=== PATIENT | male | born 1970 | race Two or more races ===

== ENCOUNTER 2017-09-22 02:03 | Inpatient (IN) | payer OTHER ==
--- NOTE | 2017-09-22 02:14 | PDOC ---
History of Present Illness - General Chief Complaint: Nausea/Vomiting Stated Complaint: NAUSEA/VOMITING Time Seen by Provider: 09/22/17 02:13 History Source: Patient Exam Limitations: No Limitations - History of Present Illness Initial Comments: 09/22/17 03:04 47m with pmh of non-compliant dm2 presents with 24h of vomiting, dizziness. Stopped being compliant after PCP 2 weeks ago. Finger stick usually puts him at 350 every day. Not compliant with diabetic diet either. No altered mental status. 09/22/17 04:17 Past History - Past Medical History Allergies/Adverse Reactions: Allergies Allergy/AdvReac Type Severity Reaction Status Date / Time No Known Allergies Allergy Verified 09/22/17 02:12 Home Medications: Ambulatory Orders Metformin HCl 850 mg PO BID 09/22/17 Anemia: No Asthma: No Cancer: No Cardiac Disorders: No CVA: No COPD: No CHF: No Dementia: No Diabetes: Yes GI Disorders: No Disorders: No HTN: Yes Hypercholesterolemia: Yes Liver Disease: (hep a?) Seizures: No Thyroid Disease: No - Surgical History Abdominal Surgery: No Appendectomy: No Cardiac Surgery: No Cholecystectomy: No Lung Surgery: No Neurologic Surgery: No Orthopedic Surgery: No - Immunization History Immunization Up to Date: Yes - Suicide/Smoking/Psychosocial Hx Smoking History: Current some day smoker Have you smoked in the past 12 months: No Number of Cigarettes Smoked Daily: 1 Cigars Per Day: 0 Information on smoking cessation initiated: Yes 'Breaking Loose' booklet given: 06/26/13 Hx Alcohol Use: No Drug/Substance Use Hx: No Substance Use Type: Alcohol Hx Substance Use Treatment: No Review of Systems - Review of Systems Able to Perform ROS?: Yes Is the patient limited Welsh proficient: No Constitutional: No: Symptoms Reported HEENTM: No: Symptoms Reported Respiratory: No: Symptoms reported Cardiac (ROS): No: Symptoms Reported ABD/GI: Yes: Nausea, Vomiting Musculoskeletal: Yes: Muscle Pain Integumentary: No: Symptoms Reported Endocrine: No: Symptoms Reported Hematologic/Lymphatic: No: Symptoms Reported All Other Systems: Reviewed and Negative *Physical Exam - Vital Signs Last Vital Signs Temp Pulse Resp BP Pulse Ox 97.8 F 110 H 20 125/90 100 09/22/17 02:11 09/22/17 02:11 09/22/17 02:11 09/22/17 02:11 09/22/17 02:11 - Physical Exam General Appearance: Yes: Apparent Distress, Disheveled, Moderate Distress HEENT: positive: EOMI, NAYELI, Normal ENT Inspection Respiratory/Chest: positive: Lungs Clear, Normal Breath Sounds. negative: Chest Tender, Respiratory Distress Cardiovascular: positive: Regular Rhythm, S1, S2, Tachycardia Gastrointestinal/Abdominal: positive: Normal Bowel Sounds, Flat, Soft. negative : Tender Musculoskeletal: positive: Normal Inspection. negative: CVA Tenderness Extremity: positive: Normal Capillary Refill, Normal Inspection, Normal Range of Motion Integumentary: positive: Normal Color, Dry, Warm Neurologic: positive: Fully Oriented, Alert, Normal Mood/Affect, Normal Response ED Treatment Course - LABORATORY CBC & Chemistry Diagram: 09/22/17 02:25 09/22/17 02:25 Medical Decision Making - Medical Decision Making 09/22/17 04:21 Patient in apparent dka, presenting with 350 fingerstick per EMS. PAtient started on NS, Basic labsm VBG, PAtient hypokelemic at 122, corrected to 126. 2+acetone Added KCl IV redrew chemistry, added 7u insulin and admitted patient to ICU. 09/22/17 04:24 *DC/Admit/Observation/Transfer Diagnosis at time of Disposition: DKA (diabetic ketoacidoses) - Discharge Dispostion Decision to Admit order: Yes - Referrals Referrals: Shahid Alexis [Primary Care Provider] - - Patient Instructions - Post Discharge Activity
[2017-09-22] MEDS ORDERED: SODIUM CHLORIDE 1,000 ML IV STA ×3 (02:20→04:01)
--- NOTE | 2017-09-22 02:20 | PDOC ---
Attending Attestation - ED Attending Attestation I have performed the following: I have examined & evaluated the patient, The case was reviewed & discussed with the resident, I agree w/resident's findings & plan - HPI HPI: 09/22/17 04:06 The patient is a 47 year old male brought in by EMS, with a significant past medical history of diabetes, HTN and HLD, who presents to the emergency department for evaluation of nausea and vomiting. As per EMS, the patient has a BG of 350. The patient reports 24 hours of vomiting and dizziness. The patient reports associated symptoms of generalized weakness and dizziness. The patient reports falling after noting his head felt heavy, but denies loss of consciousness and head trauma. He states this near syncopal episode prompted him to activate EMS to be further evaluated. Pt states he has not been compliant with medications secondary to his PCP passing away 2 weeks ago. The patient denies chest pain, shortness of breath, headache, fever, chills, and urinary/bowel symptoms. Allergies: NKDA Social History: Alcohol consumption reported. Current some day smoker. No reported drug use. Surgical History: Patient denies. PCP: Dr. Alexis ([phone]) - Physicial Exam PE: GENERAL: Awake, alert, and fully oriented, in no acute distress HEAD: No signs of trauma EYES: PERRLA, EOMI, sclera anicteric, conjunctiva clear ENT: Auricles normal inspection, hearing grossly normal, nares patent, oropharynx clear without exudates. Moist mucosa NECK: Normal ROM, supple. LUNGS: Breath sounds equal, clear to auscultation bilaterally. No wheezes, and no crackles HEART: Regular rate and rhythm, normal S1 and S2, no murmurs, rubs or gallops ABDOMEN: Soft, nontender, normoactive bowel sounds. No guarding, no rebound. No masses EXTREMITIES: Normal range of motion, no edema. No clubbing or cyanosis. No cords, erythema, or tenderness NEUROLOGICAL: Cranial nerves II through XII grossly intact. SKIN: Warm, Dry, normal turgor, no rashes or lesions noted. <Jim Troncoso - Last Filed: 09/22/17 04:39> - Resident Resident Name: Jefry Johnson - ED Attending Attestation I have performed the following: I have examined & evaluated the patient, The case was reviewed & discussed with the resident - Medical Decision Making 09/22/17 19:42 Pt will be admitted for his electrolyte abnormalities his alcohol abuse and DKA. He has been placed on nasal cannula for low pulsox (secondary to decreased inspiratory effort, as he is somnolent) Pt is stable and alert and oriented and he will be admitted to medicine. <Sophia José - Last Filed: 09/22/17 19:44> Attestations - Attestations Documentation prepared by Jim Troncoso, acting as medical i d sales for Sophia José MD. <Jim Troncoso - Last Filed: 09/22/17 04:39>
[2017-09-22 02:32] LABS: BASO % 0.7 % (0-2.0); EOS % 0.1 % (0-4.5); HEMATOCRIT 41.9 % (35.4-49); HEMOGLOBIN 14.2 GM/dL (11.7-16.9); LYMPH % 30.3 % (8-40); MCH 27.9 pg (25.7-33.7); MCHC 33.9 g/dl (32.0-35.9); MEAN CELL VOLUME 82.2 fl (80-96); MEAN PLT VOLUME 7.8 fl (7.5-11.1); MONO % 10.1 % (3.8-10.2); NEUT % 58.8 % (42.8-82.8); PLATELET COUNT 333 K/MM3 (134-434); RDW 14.3 % (11.9-15.9); WHITE BLOOD COUNT 10.6 K/mm3 (4.0-10.0)
[2017-09-22 02:59] LABS: ALBUMIN 3.9 g/dl (3.4-5.0); ALK PHOS 86 U/L (45-117); ANION GAP 21 (8-16); BLOOD UREA NITROGEN 21 mg/dL (7-18); CHLORIDE 61 mmol/L (98-107); CO2 40 mmol/L (21-32); CREATININE 2.3 mg/dL (0.7-1.3); GLUCOSE,RANDOM 273 mg/dL (74-106); SGOT/AST 46 U/L (15-37); SGPT/ALT 86 U/L (12-78); TOT PROT 8.4 g/dl (6.4-8.2)
[2017-09-22] MEDS ORDERED: POTASSIUM CHLORIDE 20 MEQ PREMIX IVPB 100 ML IVPB ONE (03:03)
[2017-09-22 03:04] LABS: POTASSIUM 2.8 mmol/L (3.5-5.1); SODIUM 122 mmol/L (136-145)
[2017-09-22] MEDS ORDERED: MAGNESIUM SULF 50% (8.12 MEQ/2 ML-1 GM VIAL) IVPB ONE (03:09)
[2017-09-22] MEDS ORDERED: KCL 10 MEQ IVPB 10 MEQ/100 ML INFUS.BAG IVPB ONE (03:09)
[2017-09-22] MEDS ORDERED: POTASSIUM CHLORIDE TABS 20 MEQ TABLET.ER (FP) PO ONE ×4 (03:09→17:00)
[2017-09-22] MEDS ORDERED: MAGNESIUM 1GM/D5W - 1 GM/100 ML IVPB IVPB ONE (03:18)
[2017-09-22 03:20] LABS: ACETONE URINE- POSITIVE MODERATE 2+
[2017-09-22] MEDS: KCL 10 MEQ IVPB 10 MEQ/100 ML INFUS.BAG IVPB SCH ×6 (03:25→09:29)
--- NOTE | 2017-09-22 03:37 | HP ---
CHIEF COMPLAINT: Nausea, Vomiting, Abdominal Pain PCP: Dr. Alexis HISTORY OF PRESENT ILLNESS: This is a 47 y/o man with a past medical history of Diabetes Type 2 (non- complaint), HTN, Alcohol Dependence. Who presents to the ED with nausea and bilious vomiting, abdominal pain x several days. Patient reports not taking his medications due to his vomiting. Patient reports drinking Alcohol- beers over the September 19 Holiday. Patient reports throat irritation and burning to his abdomen. Patient reports being admitted at [facility] several months ago for DKA. Patient denies fever, chills, cough, SOB, CP, palpitations, diarrhea, constipation, dysuria. ER course was notable for: (1) Na 122 (2) K 2.8 (3) AG- 21 (4) Glucose 273 (5) ABG- 7.5/39.1/92/37.8 Recent Travel: None PAST MEDICAL HISTORY: See HPI PAST SURGICAL HISTORY: Denies Social History: Smoking: < 5 cigarettes daily Alcohol: Beer, mixed drinks, socially, last drink 09/19?18 Drugs: Denies lives with spouse, employed- maintenance Family History: Mother- DM Other siblings- alive and healthy Allergies No Known Allergies Allergy (Verified 09/22/17 02:12) HOME MEDICATIONS: Home Medications Medication Instructions Recorded Aspirin [ASA -] 81 mg PO DAILY 06/25/13 metFORMIN HCL [Glucophage -] 850 mg PO BID 06/25/13 Omeprazole [Prilosec (RX)] 40 mg PO DAILY 05/24/14 Enalapril Maleate [Vasotec -] 2.5 mg PO DAILY 06/09/15 Glipizide 5 mg PO DAILY 06/10/15 Insulin Glargine,Hum.rec.anlog 10 unit SQ HS 06/10/15 [Lantus (10mL VIAL) -] Insulin Sliding Scale [Novolog 0 units SQ TIDAC 06/10/15 Vial Sliding Scale -] Pravastatin Sodium [Pravachol (Nf)] 40 mg PO HS 06/10/15 REVIEW OF SYSTEMS CONSTITUTIONAL: malaise, loss of appetite Absent: fever, chills, diaphoresis, generalized weakness, weight change HEENT: throat pain, hiccups Absent: rhinorrhea, nasal congestion, throat pain, difficulty swallowing, mouth swelling, ear pain, eye pain, visual changes CARDIOVASCULAR: Absent: chest pain, syncope, palpitations, irregular heart rate, lightheadedness , peripheral edema RESPIRATORY: Absent: cough, shortness of breath, dyspnea with exertion, orthopnea, wheezing, stridor, hemoptysis GASTROINTESTINAL:abdominal pain, nausea, vomiting Absent: abdominal distension, diarrhea, constipation, melena, hematochezia GENITOURINARY: Absent: dysuria, frequency, urgency, hesitancy, hematuria, flank pain, genital pain MUSCULOSKELETAL: Absent: myalgia, arthralgia, joint swelling, back pain, neck pain SKIN: Absent: rash, itching, pallor HEMATOLOGIC/IMMUNOLOGIC: Absent: easy bleeding, easy bruising, lymphadenopathy, frequent infections ENDOCRINE: Absent: unexplained weight gain, unexplained weight loss, heat intolerance, cold intolerance NEUROLOGIC: headache, Absent: focal weakness or paresthesias, dizziness, unsteady gait, seizure, mental status changes, bladder or bowel incontinence PSYCHIATRIC: Absent: anxiety, depression, suicidal or homicidal ideation, hallucinations. PHYSICAL EXAMINATION Vital Signs - 24 hr 09/22/17 09/22/17 02:11 03:14 Temperature 97.8 F Pulse Rate 110 H Pulse Rate [ 98 H Left Radial] Respiratory 20 18 Rate Blood Pressure 125/90 Blood Pressure 142/90 [Left Arm] O2 Sat by Pulse 100 100 Oximetry (%) GENERAL: Awake, alert, and fully oriented, in no acute distress. HEAD: Normal with no signs of trauma. EYES: Pupils equal, round and reactive to light, extraocular movements intact, sclera anicteric, conjunctiva clear. No lid lag. EARS, NOSE, THROAT: Ears normal, nares patent, oropharynx clear without exudates . Dry mucous membranes. NECK: Normal range of motion, supple without lymphadenopathy, JVD, or masses. LUNGS: Breath sounds equal, clear to auscultation bilaterally. No wheezes, and no crackles. No accessory muscle use. HEART: Regular rate and rhythm, normal S1 and S2 without murmur, rub or gallop. ABDOMEN: Soft, nontender, not distended, normoactive bowel sounds, no guarding, no rebound, no masses. No hepatomegaly or splenomegaly. MUSCULOSKELETAL: Normal range of motion at all joints. No bony deformities or tenderness. No CVA tenderness. UPPER EXTREMITIES: 2+ pulses, warm, well-perfused. No cyanosis. No clubbing. No peripheral edema. LOWER EXTREMITIES: 2+ pulses, warm, well-perfused. No calf tenderness. No peripheral edema. NEUROLOGICAL: Cranial nerves II-XII intact. Normal speech. Gait not observed. PSYCHIATRIC: Cooperative. Good eye contact. Appropriate mood and affect. SKIN: Warm, dry, normal turgor, no rashes or lesions noted, normal capillary refill. Laboratory Results - last 24 hr 09/22/17 09/22/17 09/22/17 02:05 02:25 02:25 WBC 10.6 H RBC 5.10 Hgb 14.2 Hct 41.9 D MCV 82.2 MCH 27.9 MCHC 33.9 RDW 14.3 Plt Count 333 D MPV 7.8 Absolute Neuts (auto) 6.2 Neutrophils % 58.8 Lymphocytes % 30.3 Monocytes % 10.1 Eosinophils % 0.1 Basophils % 0.7 Nucleated RBC % 0 Sodium 122 L* Potassium 2.8 L* D Chloride 61 L D Carbon Dioxide 40 H D Anion Gap 21 H BUN 21 H Creatinine 2.3 H Creat Clearance w eGFR 30.63 Random Glucose 273 H Calcium 9.0 Total Bilirubin 1.0 AST 46 H D ALT 86 H D Alkaline Phosphatase 86 Total Protein 8.4 H Albumin 3.9 Urine Acetone Positive moderate 2+ Alcohol, Quantitative Acetone, Qual Positive moderate 2+ 09/22/17 02:25 WBC RBC Hgb Hct MCV MCH MCHC RDW Plt Count MPV Absolute Neuts (auto) Neutrophils % Lymphocytes % Monocytes % Eosinophils % Basophils % Nucleated RBC % Sodium Potassium Chloride Carbon Dioxide Anion Gap BUN Creatinine Creat Clearance w eGFR Random Glucose Calcium Total Bilirubin AST ALT Alkaline Phosphatase Total Protein Albumin Urine Acetone Alcohol, Quantitative < 5.0 Acetone, Qual ABG Results ABG pH 7.59 (7.35-7.45) H 09/22/17 04:00 ABG pCO2 at Pt Temp 39.1 mmHg (35-45) 09/22/17 04:00 ABG pO2 at Pt Temp 92.8 mmHg (80-100) D 09/22/17 04:00 ABG HCO3 37.8 meq/L (22-26) H 09/22/17 04:00 ABG O2 Sat (Measured) 95.3 % (90-98.9) 09/22/17 04:00 ABG O2 Content 17.7 % vol (15-22) 09/22/17 04:00 ABG Base Excess 14.3 meq/l (-2-2) H 09/22/17 04:00 ASSESSMENT/PLAN: This is a 47y/o man with a PMHx of: Type II DM (non-complaint), HTn, Alcohol Dependence. Admitted to ICU for DKA, Hypokalemia, Hyponatremia for further evaluation of their emergent condition. Plan: FEN: - Insulin Drip till AG closes and Glucose <250, then D51/2NS with KCL - Replete lytes prn - NPO DVT ppx - OOB - SCDs - Heparin SQ Code Status: Full Code Dispo: Requires Inpatient Care Problem List - Problem (1) DKA (diabetic ketoacidoses) Assessment/Plan: - Likely secondary to non-compliance vs Intoxication vs Inflammation vs Infection - Admit to ICU - Cardiac monitoring - NS fluid boluses, Insulin IVP, K- riders, Mg Sulfate IV,given in ED - Will obtain repeat CMP, ABG, LA, UDT - Chest Xray-pending - UA- pending - AG from 21~19 - ABG- 7.59/39.1/92/37.8/95.3-primary respiratory alkalosis acute, with secondary metabolic alkalosis - Lactic Acid- nl - Continue K- riders - Continue IVF - Insulin Drip per protocol - BMP Q4h - FS Q1H, until AG closes, Serum Glucose< 200, then Q2H - Appreciate [employer] Consultant consult - Appreciate Endocrine consult - NPO Code(s): E13.10 - OTH DIABETES MELLITUS WITH KETOACIDOSIS WITHOUT COMA (2) Hypokalemia Assessment/Plan: - Likely secondary to Hypovalemia vs DKA vs Alcohol Intoxication - K- riders given in ED, will continue till repleted - Cardiac monitoring - EKG- reviewed - Strict INOs - UA-pending - BMP Q4H Code(s): E87.6 - HYPOKALEMIA (3) Hyponatremia Assessment/Plan: - Na 122~127 - Likely secondary to DKA - Continue cardiac monitoring - Sodium corrected 129mg/dl - NS boluses given in ED - Will continue IVF - BMP Q4H - Seizure Precautions - Serum Osmolality-pending Code(s): E87.1 - HYPO-OSMOLALITY AND HYPONATREMIA (4) MOISES (acute kidney injury) Assessment/Plan: - Cr 2.3 - NS bolus given in ED - Continue IVF - Monitor renal function - Consider US kidney r/o stenosis Code(s): N17.9 - ACUTE KIDNEY FAILURE, UNSPECIFIED (5) Hypertension Assessment/Plan: - Stable - Monitor BP - Will have Day team verify medication at pts home pharmacy( [facility]) Code(s): I10 - ESSENTIAL (PRIMARY) HYPERTENSION (6) Alcohol dependence Assessment/Plan: - Alcohol Cessation - UDT-pending - CIWA-ar 4 - DT Precautions - Seizure Precautions - Consider Detox consult - Ativan prn Code(s): F10.20 - ALCOHOL DEPENDENCE, UNCOMPLICATED Visit type - Emergency Visit Emergency Visit: Yes ED Registration Date: 09/22/17 Care time: The patient presented to the Emergency Department on the above date and was hospitalized for further evaluation of their emergent condition. - New Patient This patient is new to me today: Yes Date on this admission: 09/22/17 - Critical Care Critical Care patient: Yes Total Critical Care Time (in minutes): 45 Critical Care Statement: The care of this patient involved high complexity decision making to prevent further life threatening deterioration of the patient 's condition and/or to evaluate & treat vital organ system(s) failure or risk of failure. Hospitalist Screening - Colonoscopy Questionnaire Colonoscopy Questionnaire: Colonoscopy Questionnaire - Patient: 50 - 75 years old and never had a screening colonoscopy: No History of colon or rectal polyps, or CA: No History of IBD, Crohn's disease or UC: No History of abdominal radiation therapy as a child: No - Relative: 1 with colon or rectal CA, or polyps at age 60 or younger: No Colon or rectal CA diagnosed at age 45 or younger: No Multiple relatives with colon or rectal CA: No - Outcome: Screening Result: Negative Screen
[2017-09-22] MEDS ORDERED: INSULIN REGULAR HUMAN 100 UNITS/ML *VIAL IVPUSH ONE (03:51)
[2017-09-22] MEDS ORDERED: INSULIN REGULAR HUMAN 100 UNITS/ML *VIAL ONE (03:59)
[2017-09-22 04:02] LABS: VENOUS PC02 41.1 mmHg (38-52); VENOUS PH 7.59 (7.32-7.42)
[2017-09-22] MEDS ORDERED: SODIUM CHLORIDE 500 ML IV STA (04:02)
[2017-09-22 04:03] LABS: VENOUS PO2 40.9 mmHg (28-48)
[2017-09-22] MEDS ORDERED: FAMOTIDINE 20 MG/50 ML IVPB 20 MG/50 ML MG IVPB ONE ×2 (04:06→04:08)
[2017-09-22 04:08] LABS: ARTERIAL BLD GAS O2 SATURATION 95.3 % (90-98.9); ARTERIAL BLOOD GAS BASE EXCESS 14.3 meq/l (-2-2); ARTERIAL BLOOD GAS PCO2 39.1 mmHg (35-45); ARTERIAL BLOOD GAS PO2 92.8 mmHg (80-100); ARTERIAL BLOOD GAS pH 7.59 (7.35-7.45); CARBOXYHEMOGLOBIN 1.4 gm% (0.5-2.0)
[2017-09-22 04:10] LABS: ALLENS TEST POSITIVE
[2017-09-22] MEDS ORDERED: ONDANSETRON 4 MG/2 ML VIAL IVPB ONE (04:13)
[2017-09-22] MEDS ORDERED: ONDANSETRON 4 MG/2 ML VIAL IVPUSH PRN (04:14)
[2017-09-22 04:20] LABS: ACETONE SERUM POSITIVE MODERATE 2+ (NEGATIVE)
[2017-09-22] MEDS ORDERED: MAG HYDROX/AL HYDROX/SIMETH 30 ML UNIT-DOSE CUP ONE (04:39)
[2017-09-22] MEDS ORDERED: MAG HYDROX/AL HYDROX/SIMETH 30 ML UNIT-DOSE CUP PO ONE ×2 (04:41→16:15)
[2017-09-22] MEDS ORDERED: SUCRALFATE 1 GM/10 ML UNIT DOSE CUPS PO ONE (04:41)
[2017-09-22] MEDS ORDERED: SUCRALFATE 1 GM TABLET (FP) ONE (04:42)
[2017-09-22 04:46] LABS: ANION GAP 19 (8-16); BLOOD UREA NITROGEN 21 mg/dL (7-18); CHLORIDE 71 mmol/L (98-107); CO2 37 mmol/L (21-32); CREATININE 2.1 mg/dL (0.7-1.3); GLUCOSE,RANDOM 224 mg/dL (74-106); SODIUM 127 mmol/L (136-145)
[2017-09-22 04:49] LABS: POTASSIUM 2.7 mmol/L (3.5-5.1)
[2017-09-22] MEDS ORDERED: INSULIN REGULAR 100 UNITS in SODIUM CHLORIDE 99 ML IVPB SCH (05:15)
--- NOTE | 2017-09-22 05:16 | CONSULT ---
Consultation: CONSULT SERVICE: ICU Resident HISTORY OF PRESENT ILLNESS: 47yo M with hx of DMII, alcohol abuse (last known drink 09/19/17), and HTN who presents to ER with abdominal pain, nausea, and vomiting. Pt reports this starting around yesterday afternoon and having copious amounts of vomiting with some bile noted at later times. Pt reports this 19 of September holiday having 7-8 Coronas with wrangell and reports he has a known history of alcohol abuse. Pt also endorse some odynophagia that came about after his vomiting episodes. In the ER he was given KDur 40mEq, KCl 10mEq IV, Novolog 7 U, and 2L NS. Pt also notes that he has not been compliant with his medications especially recently. He reports that normally his BGM's are 250-300's, however recently they have been increasing because of not taking his medications. In addition pt does not report drinking anything unusual or has been around any chemicals lately. REVIEW OF SYSTEMS: CONSTITUTIONAL: Present: malaise, loss of appetite Absent: fever, chills, diaphoresis, generalized weakness, weight change HEENT: Present: throat pain, hiccups Absent: rhinorrhea, nasal congestion, throat pain, difficulty swallowing, mouth swelling, ear pain, eye pain, visual changes CARDIOVASCULAR: Absent: chest pain, syncope, palpitations, irregular heart rate, lightheadedness , peripheral edema RESPIRATORY: Absent: cough, shortness of breath, dyspnea with exertion, orthopnea, wheezing, stridor, hemoptysis GASTROINTESTINAL: Present: abdominal pain, nausea, vomiting Absent: abdominal distension, diarrhea, constipation, melena, hematochezia GENITOURINARY: Absent: dysuria, frequency, urgency, hesitancy, hematuria, flank pain, genital pain MUSCULOSKELETAL: Absent: myalgia, arthralgia, joint swelling, back pain, neck pain SKIN: Absent: rash, itching, pallor HEMATOLOGIC/IMMUNOLOGIC: Absent: easy bleeding, easy bruising, lymphadenopathy, frequent infections ENDOCRINE: Absent: unexplained weight gain, unexplained weight loss, heat intolerance, cold intolerance NEUROLOGIC: Present: headache, Absent: focal weakness or paresthesias, dizziness, unsteady gait, seizure, mental status changes, bladder or bowel incontinence PSYCHIATRIC: Absent: anxiety, depression, suicidal or homicidal ideation, hallucinations. PHYSICAL EXAMINATION Vital Signs - 24 hr 09/22/17 09/22/1718 02:11 03:14 04:09 Temperature 97.8 F Pulse Rate 110 H Pulse Rate [ 98 H 104 H Left Radial] Respiratory 20 18 18 Rate Blood Pressure 125/90 Blood Pressure 142/90 108/80 [Left Arm] O2 Sat by Pulse 100 100 100 Oximetry (%) GENERAL: NAD, Awake, alert, and fully oriented HEENT: NC/AT, EOMI, LUKE, some conjunctival injections, sclera anicteric NECK: No JVD LUNGS: CTA bilaterally. No wheezes, and no crackles. No accessory muscle use. HEART: RRR, normal S1 and S2 without murmur ABDOMEN: Soft, nondistended, mild epigastric tenderness, no suprapubic tenderness, hepatomegaly noted 2 finger widths below rib angle MUSCULOSKELETAL: No CVA tenderness. EXTREMITIES: 2+ DP pulses, warm, well-perfused. No peripheral edema. NEUROLOGICAL: vaccine manager II-XII intact. Strength 5/5 in both upper and lower extremities. Sensation symmetrical throughout. Normal speech. Gait not observed PSYCHIATRIC: Cooperative. Good eye contact. Appropriate mood and affect. SKIN: Warm, dry, no rashes or lesions noted. Laboratory Results - last 24 hr 09/22/17 09/22/17 09/22/17 02:05 02:25 02:25 WBC 10.6 H RBC 5.10 Hgb 14.2 Hct 41.9 D MCV 82.2 MCH 27.9 MCHC 33.9 RDW 14.3 Plt Count 333 D MPV 7.8 Absolute Neuts (auto) 6.2 Neutrophils % 58.8 Lymphocytes % 30.3 Monocytes % 10.1 Eosinophils % 0.1 Basophils % 0.7 Nucleated RBC % 0 Anticoagulation Therapy Puncture Site ABG pH ABG pCO2 at Pt Temp ABG pO2 at Pt Temp ABG HCO3 ABG O2 Sat (Measured) ABG O2 Content ABG Base Excess Harvey Test VBG pH POC VBG pCO2 POC VBG pO2 Mixed VBG HCO3 Carboxyhemoglobin Methemoglobin O2 Delivery Device Oxygen Flow Rate Vent Mode Vent Rate Mechanical Rate Pressure Support Vent Sodium 122 L* Potassium 2.8 L* D Chloride 61 L D Carbon Dioxide 40 H D Anion Gap 21 H BUN 21 H Creatinine 2.3 H Creat Clearance w eGFR 30.63 POC Glucometer Random Glucose 273 H Lactic Acid Calcium 9.0 Total Bilirubin 1.0 AST 46 H D ALT 86 H D Alkaline Phosphatase 86 Total Protein 8.4 H Albumin 3.9 Urine Acetone Positive moderate 2+ Alcohol, Quantitative Acetone, Qual Positive moderate 2+ 09/22/17 09/22/17 09/22/17 02:25 03:28 03:41 WBC RBC Hgb Hct MCV MCH MCHC RDW Plt Count MPV Absolute Neuts (auto) Neutrophils % Lymphocytes % Monocytes % Eosinophils % Basophils % Nucleated RBC % Anticoagulation Therapy Puncture Site ABG pH ABG pCO2 at Pt Temp ABG pO2 at Pt Temp ABG HCO3 ABG O2 Sat (Measured) ABG O2 Content ABG Base Excess Harvey Test VBG pH 7.59 H POC VBG pCO2 41.1 POC VBG pO2 40.9 Mixed VBG HCO3 40.1 H* Carboxyhemoglobin Methemoglobin O2 Delivery Device Oxygen Flow Rate Vent Mode Vent Rate Mechanical Rate Pressure Support Vent Sodium 127 L Potassium 2.7 L* Chloride 71 L D Carbon Dioxide 37 H Anion Gap 19 H BUN 21 H Creatinine 2.1 H Creat Clearance w eGFR 34.02 POC Glucometer Random Glucose 224 H Lactic Acid Calcium 8.0 L Total Bilirubin AST ALT Alkaline Phosphatase Total Protein Albumin Urine Acetone Alcohol, Quantitative < 5.0 Acetone, Qual Positive moderate 2+ 09/22/17 09/22/17 09/22/17 03:46 03:50 04:00 WBC RBC Hgb Hct MCV MCH MCHC RDW Plt Count MPV Absolute Neuts (auto) Neutrophils % Lymphocytes % Monocytes % Eosinophils % Basophils % Nucleated RBC % Anticoagulation Therapy No Result Required. Puncture Site Left radial ABG pH 7.59 H ABG pCO2 at Pt Temp 39.1 ABG pO2 at Pt Temp 92.8 D ABG HCO3 37.8 H ABG O2 Sat (Measured) 95.3 ABG O2 Content 17.7 ABG Base Excess 14.3 H Harvey Test Positive VBG pH POC VBG pCO2 POC VBG pO2 Mixed VBG HCO3 Carboxyhemoglobin 1.4 Methemoglobin 1.6 H O2 Delivery Device No Result Required. Oxygen Flow Rate No Vent Mode No Result Required. Vent Rate No Result Required. Mechanical Rate No Result Required. Pressure Support Vent No Result Required. Sodium Potassium Chloride Carbon Dioxide Anion Gap BUN Creatinine Creat Clearance w eGFR POC Glucometer [phone] Random Glucose Lactic Acid 2.0 Calcium Total Bilirubin AST ALT Alkaline Phosphatase Total Protein Albumin Urine Acetone Alcohol, Quantitative Acetone, Qual Active Medications Generic Name Dose Route Start Last Admin Trade Name Freq PRN Reason Stop Dose Admin Chlorhexidine Gluconate 1 applic 09/22/17 22:00 Hibiclens For Decolonization - TP HS [facility] Heparin Sodium (Porcine) 5,000 unit 09/22/17 06:00 Heparin - SQ TID [facility] Insulin Human Regular 100 100 mls @ 7.03 mls/hr 09/22/17 05:15 units/ Sodium Chloride IVPB TITR [facility] Protocol 0.1 UNITS/KG/HR Mupirocin 1 applic 09/22/17 10:00 Bactroban Ointment (For Decolonization) - NS 09/27/17 09:59 BID [facility] Ondansetron HCl 4 mg 09/22/17 04:14 Zofran Injection IVPUSH Q6H PRN NAUSEA AND/OR VOMITING ASSESSMENT/PLAN: Neuro: Neurologically intact Respiratory: Acute hypoxia --desaturating to 86% on RA --Maintain 2LNC --Most likely pt is hypoventilating and trying to compensate for his metabolic alkalosis Renal/Electrolytes: Hyponatremia --Corrected to 124 on initial labs --Max correction of 10 in 24hr period --No mental status changes noted Hypokalemia --Severe derangement most likely from vomiting --Would explain metabolic alkalosis as well due to intracellular shift of H+ cations --KCl 10mEq IVPB x3 bags --Will need to replete to at least 3.3 before insulin therapy as suggested below Endocrine: Elevated anion gap: --Likely diabetic ketosis with ABG being masked by severe vomiting and hypokalemia --Monitor BMP q3h --Monitor BGM --Regardless need to replete KCl to 3.3 before any insulin therapy --Serum Osm 272 (calculated 273) --UA and UTox ordered FEN: Fluids: After K repleted would likely initiate D51/3NS + 20KCl @ 75cc/hr Electrolytes abnormalities: As above Nutrition: NPO for now PPX: DVT - Heparin SQ TID Dispo: ICU monitoring Rafiq Morales, DO - IM PGY-2 Visit type - Emergency Visit Emergency Visit: Yes ED Registration Date: 09/22/17 Care time: The patient presented to the Emergency Department on the above date and was hospitalized for further evaluation of their emergent condition. - New Patient This patient is new to me today: Yes Date on this admission: 09/22/17 - Critical Care Critical Care patient: Yes Total Critical Care Time (in minutes): 40 Critical Care Statement: The care of this patient involved high complexity decision making to prevent further life threatening deterioration of the patient 's condition and/or to evaluate & treat vital organ system(s) failure or risk of failure.
[2017-09-22] MEDS: HEPARIN NA (PORCINE) 5,000 UNITS/ML 1ML VIAL SQ SCH ×3 (06:12→22:56)
[2017-09-22] MEDS ORDERED: chlordiazePOXIDE HCL 25 MG CAPSULE PO PRN (08:19)
[2017-09-22] MEDS ORDERED: THIAMINE HCL 200 MG/2 ML VIAL IVPB ONE (08:21)
--- NOTE | 2017-09-22 08:26 | HOSP ---
Subjective - Review of Symptoms Events since last encounter: Patient is having some tremor, otherwise has no complain. Vital Signs Temperature 98.3 F 09/22/17 06:29 Pulse Rate 91 H 09/22/17 06:29 Respiratory Rate 18 09/22/17 06:29 Blood Pressure 109/88 09/22/17 06:29 O2 Sat by Pulse Oximetry (%) 100 09/22/17 06:28 GENERAL: Awake, alert, and fully oriented, in no acute distress. HEAD: Normal with no signs of trauma. EYES: Pupils equal, round and reactive to light, extraocular movements intact, sclera anicteric, conjunctiva clear. EARS, NOSE, THROAT: Ears normal, oropharynx clear without exudates. Dry mucous membranes. NECK: Normal range of motion, supple without lymphadenopathy, JVD, or masses. LUNGS: Breath sounds equal, clear to auscultation bilaterally. No wheezes, and no crackles. No accessory muscle use. HEART: Regular rate and rhythm, normal S1 and S2 without murmur, rub or gallop. ABDOMEN: Soft, nontender, not distended, normoactive bowel sounds, no guarding, no rebound, no masses. No hepatomegaly or splenomegaly. MUSCULOSKELETAL: Normal range of motion at all joints. No bony deformities or tenderness. No CVA tenderness. EXTREMITIES: 2+ pulses, warm, well-perfused. No cyanosis. No clubbing. No peripheral edema. NEUROLOGICAL: Cranial nerves II-XII intact. Normal speech. Gait not observed. PSYCHIATRIC: Cooperative. Good eye contact. Appropriate mood and affect. SKIN: Warm, dry, normal turgor, no rashes or lesions noted, normal capillary refill. CBCD WBC 10.6 K/mm3 (4.0-10.0) H 09/22/17 02:25 RBC 5.10 M/mm3 (4.00-5.60) 09/22/17 02:25 Hgb 14.2 GM/dL (11.7-16.9) 09/22/17 02:25 Hct 41.9 % (35.4-49) D 09/22/17 02:25 MCV 82.2 fl (80-96) 09/22/17 02:25 MCHC 33.9 g/dl (32.0-35.9) 09/22/17 02:25 RDW 14.3 % (11.9-15.9) 09/22/17 02:25 Plt Count 333 K/MM3 (134-434) D 09/22/17 02:25 MPV 7.8 fl (7.5-11.1) 09/22/17 02:25 CMP Sodium 127 mmol/L (136-145) L 09/22/17 03:28 Potassium 2.7 mmol/L (3.5-5.1) L* 09/22/17 03:28 Chloride 71 mmol/L (98-107) L D 09/22/17 03:28 Carbon Dioxide 37 mmol/L (21-32) H 09/22/17 03:28 Anion Gap 19 (8-16) H 09/22/17 03:28 BUN 21 mg/dL (7-18) H 09/22/17 03:28 Creatinine 2.1 mg/dL (0.7-1.3) H 09/22/17 03:28 Creat Clearance w eGFR 34.02 (>60) 09/22/17 03:28 Random Glucose 224 mg/dL (74-106) H 09/22/17 03:28 Calcium 8.0 mg/dL (8.5-10.1) L 09/22/17 03:28 Total Bilirubin 1.0 mg/dL (0.2-1.0) 09/22/17 02:25 AST 46 U/L (15-37) H D 09/22/17 02:25 ALT 86 U/L (12-78) H D 09/22/17 02:25 Alkaline Phosphatase 86 U/L (45-117) 09/22/17 02:25 Total Protein 8.4 g/dl (6.4-8.2) H 09/22/17 02:25 Albumin 3.9 g/dl (3.4-5.0) 09/22/17 02:25 Current Medications Generic Name Dose Route Start Last Admin Trade Name Freq PRN Reason Stop Dose Admin Chlordiazepoxide HCl 50 mg 09/22/17 12:00 Librium - PO Q6HPO [facility] Chlordiazepoxide HCl 25 mg 09/22/17 08:19 Librium - PO Q4H PRN WITHDRAWAL(CONT SUBST) Chlorhexidine Gluconate 1 applic 09/22/17 22:00 Hibiclens For Decolonization - TP HS [facility] Heparin Sodium (Porcine) 5,000 unit 09/22/17 06:00 09/22/17 06:12 Heparin - SQ 5,000 unit TID [facility] Administration Insulin Human Regular 100 100 mls @ 7.03 mls/hr 09/22/17 05:15 09/22/17 06:04 units/ Sodium Chloride IVPB Not Given TITR [facility] Protocol 0.1 UNITS/KG/HR Potassium Chloride 10 meq in 100 mls @ 100 mls/hr 09/22/17 05:30 09/22/17 08: 17 Potassium Chloride 10 Meq Premix Ivpb - IVPB 09/22/17 08:29 100 mls/hr Q60M [facility] Administration Sodium Chloride 1,000 mls @ 75 mls/hr 09/22/17 08:30 Normal Saline - IV ASDIR [facility] Mupirocin 1 applic 09/22/17 10:00 Bactroban Ointment (For Decolonization) - NS 09/27/17 09:59 BID [facility] Ondansetron HCl 4 mg 09/22/17 04:14 Zofran Injection IVPUSH Q6H PRN NAUSEA AND/OR VOMITING Multivit/Folic Acid/Iron 1 tab 09/22/17 10:00 Vitamins (Sjr) - PO DAILY [facility] Thiamine HCl 200 mg 09/22/17 08:21 Vitamin B1 Injection - IVPB 09/22/17 08:22 ONCE ONE Thiamine HCl 100 mg 09/23/17 10:00 Vitamin B1 - PO DAILY [facility] Home Medications Medication Instructions Recorded Metformin HCl 850 mg PO BID 09/22/17 Assessment/Plan: This patient is a 47y/o man with a PMHx of: Type II DM (non-complaint), HTN, Alcohol Dependence. Admitted to ICU for DKA, Hypokalemia, Hyponatremia for further evaluation of their emergent condition. # DKA on sliding scale # Hypokalemia replete # Hyponatremia on IVF # MOISES :cr.2.7--->2.1 # Hypertension controlled # Alcohol dependence On Librium protocol DVT: Heparin sq Physical Examination Vital Signs: Vital Signs Temperature 98.3 F 09/22/17 06:29 Pulse Rate 91 H 09/22/17 06:29 Respiratory Rate 18 09/22/17 06:29 Blood Pressure 109/88 09/22/17 06:29 O2 Sat by Pulse Oximetry (%) 100 09/22/17 06:28 Labs: CBC, BMP 09/22/17 02:25 09/22/17 03:28
[2017-09-22] MEDS ORDERED: SODIUM CHLORIDE 1,000 ML IV SCH ×2 (08:30→17:00)
[2017-09-22 08:57] LABS: HEMATOCRIT 36.7 % (35.4-49); HEMOGLOBIN 12.7 GM/dL (11.7-16.9); MCH 28.7 pg (25.7-33.7); MCHC 34.6 g/dl (32.0-35.9); MEAN PLT VOLUME 7.2 fl (7.5-11.1); PLATELET COUNT 265 K/MM3 (134-434); RBC 4.42 M/mm3 (4.00-5.60); RDW 14.4 % (11.9-15.9); WHITE BLOOD COUNT 8.3 K/mm3 (4.0-10.0)
[2017-09-22 09:23] LABS: ALBUMIN 3.2 g/dl (3.4-5.0); ANION GAP 16 (8-16); BLOOD UREA NITROGEN 20 mg/dL (7-18); CALCIUM 7.6 mg/dL (8.5-10.1); CHLORIDE 77 mmol/L (98-107); CO2 35 mmol/L (21-32); GLUCOSE,RANDOM 153 mg/dL (74-106); POTASSIUM 3.2 mmol/L (3.5-5.1); SODIUM 128 mmol/L (136-145)
[2017-09-22 09:28] LABS: ALK PHOS 71 U/L (45-117); BILIRUBIN,TOTAL 0.9 mg/dL (0.2-1.0); PHOSPHOROUS 3.4 mg/dL (2.5-4.9); SGOT/AST 38 U/L (15-37); SGPT/ALT 66 U/L (12-78); TOT PROT 6.9 g/dl (6.4-8.2)
[2017-09-22 09:29] LABS: LIPASE 283 U/L (73-393)
[2017-09-22] MEDS: MUPIROCIN 2% TOPICAL OINTMENT FOR DECOLONIZATION NS SCH ×2 (09:33→22:55)
[2017-09-22 09:59] LABS: INR 1.04 (0.82-1.09); PROTHROMBIN TIME (PATIENT) 11.7 SEC (9.7-13.0)
[2017-09-22] MEDS ORDERED: KCL 10 MEQ IVPB 10 MEQ/100 ML INFUS.BAG IVPB SCH (10:00)
--- NOTE | 2017-09-22 10:14 | PN ---
Physical Exam: SUBJECTIVE: Patient seen and examined patient resting in bed NAD, no acute events. afebrile, hemodynamicaly stable. feels better, complains of mild abdominal cramping as well as chronic tingling in b/l feet. denies n/v. diarrhea, anxiety, tremor, seizure. denies cp, spb, cough, h/a. OBJECTIVE: Vital Signs Period Temp Pulse Resp BP Sys/Villavicencio Pulse Ox Last 24 Hr 97.8 F-98.3 F 91-110 18-20 108-142/80-90 100-100 GENERAL: The patient is awake, alert, and fully oriented, in no acute distress. HEAD: Normal with no signs of trauma. EYES: PERRL, extraocular movements intact, sclera anicteric, conjunctiva clear. No ptosis. ENT: moist mucous membranes. NECK: supple. LUNGS: Breath sounds equal, clear to auscultation bilaterally, no wheezes, no crackles, no accessory muscle use. HEART: Regular rate and rhythm, S1, S2 ABDOMEN: Soft, mildly nontender, nondistended, normoactive bowel sounds, no guarding, no rebound, no masses. EXTREMITIES: 2+ pulses, warm, well-perfused, no edema. NEUROLOGICAL: Cranial nerves II through XII grossly intact. Normal speech, gait not observed. PSYCH: Normal mood, normal affect. SKIN: Warm, dry Laboratory Results - last 24 hr 09/22/17 09/22/17 09/22/17 02:05 02:25 02:25 WBC 10.6 H RBC 5.10 Hgb 14.2 Hct 41.9 D MCV 82.2 MCH 27.9 MCHC 33.9 RDW 14.3 Plt Count 333 D MPV 7.8 Absolute Neuts (auto) 6.2 Neutrophils % 58.8 Lymphocytes % 30.3 Monocytes % 10.1 Eosinophils % 0.1 Basophils % 0.7 Nucleated RBC % 0 PT with INR INR Anticoagulation Therapy Puncture Site ABG pH ABG pCO2 at Pt Temp ABG pO2 at Pt Temp ABG HCO3 ABG O2 Sat (Measured) ABG O2 Content ABG Base Excess Harvey Test VBG pH POC VBG pCO2 POC VBG pO2 Mixed VBG HCO3 Carboxyhemoglobin Methemoglobin O2 Delivery Device Oxygen Flow Rate Vent Mode Vent Rate Mechanical Rate Pressure Support Vent Sodium 122 L* Potassium 2.8 L* D Chloride 61 L D Carbon Dioxide 40 H D Anion Gap 21 H BUN 21 H Creatinine 2.3 H Creat Clearance w eGFR 30.63 POC Glucometer Random Glucose 273 H Hemoglobin A1c % Serum Osmolality Lactic Acid Calcium 9.0 Phosphorus Magnesium Total Bilirubin 1.0 AST 46 H D ALT 86 H D Alkaline Phosphatase 86 Total Protein 8.4 H Albumin 3.9 Lipase Urine Acetone Positive moderate 2+ Alcohol, Quantitative Acetone, Qual Positive moderate 2+ 09/22/17 09/22/17 09/22/17 02:25 03:28 03:30 WBC RBC Hgb Hct MCV MCH MCHC RDW Plt Count MPV Absolute Neuts (auto) Neutrophils % Lymphocytes % Monocytes % Eosinophils % Basophils % Nucleated RBC % PT with INR INR Anticoagulation Therapy Puncture Site ABG pH ABG pCO2 at Pt Temp ABG pO2 at Pt Temp ABG HCO3 ABG O2 Sat (Measured) ABG O2 Content ABG Base Excess Harvey Test VBG pH POC VBG pCO2 POC VBG pO2 Mixed VBG HCO3 Carboxyhemoglobin Methemoglobin O2 Delivery Device Oxygen Flow Rate Vent Mode Vent Rate Mechanical Rate Pressure Support Vent Sodium 127 L Potassium 2.7 L* Chloride 71 L D Carbon Dioxide 37 H Anion Gap 19 H BUN 21 H Creatinine 2.1 H Creat Clearance w eGFR 34.02 POC Glucometer Random Glucose 224 H Hemoglobin A1c % Serum Osmolality 272 L Lactic Acid Calcium 8.0 L Phosphorus Magnesium Total Bilirubin AST ALT Alkaline Phosphatase Total Protein Albumin Lipase Urine Acetone Alcohol, Quantitative < 5.0 Acetone, Qual Positive moderate 2+ 09/22/17 09/22/17 09/22/17 03:41 03:46 03:50 WBC RBC Hgb Hct MCV MCH MCHC RDW Plt Count MPV Absolute Neuts (auto) Neutrophils % Lymphocytes % Monocytes % Eosinophils % Basophils % Nucleated RBC % PT with INR INR Anticoagulation Therapy Puncture Site ABG pH ABG pCO2 at Pt Temp ABG pO2 at Pt Temp ABG HCO3 ABG O2 Sat (Measured) ABG O2 Content ABG Base Excess Harvey Test VBG pH 7.59 H POC VBG pCO2 41.1 POC VBG pO2 40.9 Mixed VBG HCO3 40.1 H* Carboxyhemoglobin Methemoglobin O2 Delivery Device Oxygen Flow Rate Vent Mode Vent Rate Mechanical Rate Pressure Support Vent Sodium Potassium Chloride Carbon Dioxide Anion Gap BUN Creatinine Creat Clearance w eGFR POC Glucometer [phone] Random Glucose Hemoglobin A1c % Serum Osmolality Lactic Acid 2.0 Calcium Phosphorus Magnesium Total Bilirubin AST ALT Alkaline Phosphatase Total Protein Albumin Lipase Urine Acetone Alcohol, Quantitative Acetone, Qual 09/22/17 09/22/17 09/22/17 04:00 08:45 08:45 WBC 8.3 RBC 4.42 Hgb 12.7 Hct 36.7 MCV 83.0 MCH 28.7 MCHC 34.6 RDW 14.4 Plt Count 265 D MPV 7.2 L Absolute Neuts (auto) Neutrophils % Lymphocytes % Monocytes % Eosinophils % Basophils % Nucleated RBC % PT with INR INR Anticoagulation Therapy No Result Required. Puncture Site Left radial ABG pH 7.59 H ABG pCO2 at Pt Temp 39.1 ABG pO2 at Pt Temp 92.8 D ABG HCO3 37.8 H ABG O2 Sat (Measured) 95.3 ABG O2 Content 17.7 ABG Base Excess 14.3 H Harvey Test Positive VBG pH POC VBG pCO2 POC VBG pO2 Mixed VBG HCO3 Carboxyhemoglobin 1.4 Methemoglobin 1.6 H O2 Delivery Device No Result Required. Oxygen Flow Rate No Vent Mode No Result Required. Vent Rate No Result Required. Mechanical Rate No Result Required. Pressure Support Vent No Result Required. Sodium 128 L Potassium 3.2 L Chloride 77 L Carbon Dioxide 35 H Anion Gap 16 BUN 20 H Creatinine 2.0 H Creat Clearance w eGFR 35.99 POC Glucometer Random Glucose 153 H D Hemoglobin A1c % Serum Osmolality Lactic Acid Calcium 7.6 L Phosphorus 3.4 D Magnesium 2.0 Total Bilirubin 0.9 AST 38 H ALT 66 D Alkaline Phosphatase 71 D Total Protein 6.9 Albumin 3.2 L Lipase 283 Urine Acetone Alcohol, Quantitative Acetone, Qual 09/22/17 09/22/17 08:45 08:45 WBC RBC Hgb Hct MCV MCH MCHC RDW Plt Count MPV Absolute Neuts (auto) Neutrophils % Lymphocytes % Monocytes % Eosinophils % Basophils % Nucleated RBC % PT with INR 11.70 INR 1.04 Anticoagulation Therapy Puncture Site ABG pH ABG pCO2 at Pt Temp ABG pO2 at Pt Temp ABG HCO3 ABG O2 Sat (Measured) ABG O2 Content ABG Base Excess Harvey Test VBG pH POC VBG pCO2 POC VBG pO2 Mixed VBG HCO3 Carboxyhemoglobin Methemoglobin O2 Delivery Device Oxygen Flow Rate Vent Mode Vent Rate Mechanical Rate Pressure Support Vent Sodium Potassium Chloride Carbon Dioxide Anion Gap BUN Creatinine Creat Clearance w eGFR POC Glucometer Random Glucose Hemoglobin A1c % 10.8 H D Serum Osmolality Lactic Acid Calcium Phosphorus Magnesium Total Bilirubin AST ALT Alkaline Phosphatase Total Protein Albumin Lipase Urine Acetone Alcohol, Quantitative Acetone, Qual Active Medications Generic Name Dose Route Start Last Admin Trade Name Freq PRN Reason Stop Dose Admin Chlordiazepoxide HCl 50 mg 09/22/17 12:00 Librium - PO Q6HPO [facility] Chlordiazepoxide HCl 25 mg 09/22/17 08:19 Librium - PO Q4H PRN WITHDRAWAL(CONT SUBST) Chlorhexidine Gluconate 1 applic 09/22/17 22:00 Hibiclens For Decolonization - TP HS [facility] Heparin Sodium (Porcine) 5,000 unit 09/22/17 06:00 09/22/17 06:12 Heparin - SQ 5,000 unit TID [facility] Administration Sodium Chloride 1,000 mls @ 75 mls/hr 09/22/17 08:30 09/22/17 09:28 Normal Saline - IV 75 mls/hr ASDIR [facility] Administration Potassium Chloride 10 meq in 100 mls @ 100 mls/hr 09/22/17 10:00 Potassium Chloride 10 Meq Premix Ivpb - IVPB 09/22/17 10:59 Q60M [facility] Mupirocin 1 applic 09/22/17 10:00 09/22/17 09:33 Bactroban Ointment (For Decolonization) - NS 09/27/17 09:59 1 applic BID [facility] Administration Ondansetron HCl 4 mg 09/22/17 04:14 Zofran Injection IVPUSH Q6H PRN NAUSEA AND/OR VOMITING Multivit/Folic Acid/Iron 1 tab 09/22/17 10:00 Vitamins (Sjr) - PO DAILY [facility] Thiamine HCl 100 mg 09/23/17 10:00 Vitamin B1 - PO DAILY [facility] ASSESSMENT/PLAN: 47yo M with hx of NIDDMII (metformin), alcohol abuse (1 pint of vodka/day, last drank 7/4 8 beers), and HTN who presents to ER with abdominal pain, nausea, and vomiting. Previous admissions for alcoholic ketoacidosis and hyponatremia. possible history of DTs Neuro: -baseline mental status -initiate EtOH detox protocol (Librium standing and PRN), [place] consult, thiamine, multivitamins -peripheral neuralgia possibly due to B12 deficiency. f/u levels Pulm: -Acute hypoxia -likely de to hypoventilating in setting of underlying metabolic derangement. Now resolved -stable on room air Endocrine: This is not DKA. Patient in Alcoholic ketoacidosis. Insulin bolus was given in ED. Discontinuing insulin drip BGM q4h ISS tidac Renal: *Hyponatremia, hypochloremia, hypokalemia *Metabolic akalosis bicarb 40 on admission improved to 37 *Elevated Anion Gap 19 -secondary to alcoholic ketoacidosis and heavy GI losses (urine, blood ketones 2 +) -repleting K with riders and PO Kcl -repleting Na with NS @ 75 (patient is 131-135 Na at baseline) -Max Na correction of 10 in 24hr period *MOISES -creat 2.1 from baseline 1, gfr 30's. -secondary to fluid loss and alcoholic ketoacidosis -IVF resuscitation -follow creat -renal consult FEN NS @ 75 f/u lytes diabetic diet DVT - Heparin SQ TID Dispo: xfer m/s when labs improve Problem List - Problems (1) Alcoholic ketoacidosis Code(s): E87.2 - ACIDOSIS (2) Hypochloremia Code(s): E87.8 - OTH DISORDERS OF ELECTROLYTE AND FLUID BALANCE, NEC (3) Hypochloremic alkalosis Code(s): E87.3 - ALKALOSIS (4) MOISES (acute kidney injury) Code(s): N17.9 - ACUTE KIDNEY FAILURE, UNSPECIFIED (5) Alcohol abuse Code(s): F10.10 - ALCOHOL ABUSE, UNCOMPLICATED (6) Alcohol dependence Code(s): F10.20 - ALCOHOL DEPENDENCE, UNCOMPLICATED (7) Diabetes Code(s): E11.9 - TYPE 2 DIABETES MELLITUS WITHOUT COMPLICATIONS (8) Hypertension Code(s): I10 - ESSENTIAL (PRIMARY) HYPERTENSION (9) Hypokalemia Code(s): E87.6 - HYPOKALEMIA (10) Hyponatremia Code(s): E87.1 - HYPO-OSMOLALITY AND HYPONATREMIA (11) Nausea & vomiting Code(s): R11.2 - NAUSEA WITH VOMITING, UNSPECIFIED (12) Transaminitis Code(s): R74.0 - NONSPEC ELEV OF LEVELS OF TRANSAMNS & LACTIC ACID DEHYDRGNSE Visit type - Emergency Visit Emergency Visit: Yes ED Registration Date: 09/22/17 Care time: The patient presented to the Emergency Department on the above date and was hospitalized for further evaluation of their emergent condition. - New Patient This patient is new to me today: Yes Date on this admission: 09/22/17 - Critical Care Critical Care patient: Yes Total Critical Care Time (in minutes): 40 Critical Care Statement: The care of this patient involved high complexity decision making to prevent further life threatening deterioration of the patient 's condition and/or to evaluate & treat vital organ system(s) failure or risk of failure. - Discharge Referral Referred to [facility] No
[2017-09-22] MEDS: PRENATAL VITAMINS W/ FOLIC ACID TABLET (FP) PO SCH (10:18)
--- NOTE | 2017-09-22 10:40 | PN ---
Teaching Attending Note Name of Resident: Jessica Haque ATTENDING PHYSICIAN STATEMENT I saw and evaluated the patient. I reviewed the resident's note and discussed the case with the resident. I agree with the resident's findings and plan as documented. SUBJECTIVE: Patient seen and examined in the ICU. Awake and alert. Not tremulous. Labs are improving. Intake & Output 09/19/17 09/20/17 09/21/17 09/22/17 23:59 23:59 23:59 23:59 Intake Total 150 Balance 150 Weight 142 lb 4 oz Last Vital Signs Temp Pulse Resp BP Pulse Ox 98.3 F 91 H 18 109/88 100 09/22/17 06:29 09/22/17 06:29 09/22/17 06:29 09/22/17 06:29 09/22/17 06:28 Active Medications Chlordiazepoxide HCl (Librium -) 50 mg PO Q6HPO [facility] Chlordiazepoxide HCl (Librium -) 25 mg PO Q4H PRN PRN Reason: WITHDRAWAL(CONT SUBST) Chlorhexidine Gluconate (Hibiclens For Decolonization -) 1 applic TP HS [facility] Heparin Sodium (Porcine) (Heparin -) 5,000 unit SQ TID [facility] Last Admin: 09/22/17 06:12 Dose: 5,000 unit Sodium Chloride (Normal Saline -) 1,000 mls @ 75 mls/hr IV ASDIR [facility]AK Last Admin: 09/22/17 09:28 Dose: 75 mls/hr Mupirocin (Bactroban Ointment (For Decolonization) -) 1 applic NS BID [facility] Stop: 09/27/17 09:59 Last Admin: 09/22/17 09:33 Dose: 1 applic Ondansetron HCl (Zofran Injection) 4 mg IVPUSH Q6H PRN PRN Reason: NAUSEA AND/OR VOMITING Multivit/Folic Acid/Iron ( Vitamins (Sjr) -) 1 tab PO DAILY [facility] Last Admin: 09/22/17 10:18 Dose: 1 tab Thiamine HCl (Vitamin B1 -) 100 mg PO DAILY [facility] GENERAL: NAD, Awake, alert, and fully oriented HEENT: NC/AT, EOMI, LUKE, some conjunctival injections, sclera anicteric NECK: No JVD LUNGS: CTA bilaterally. No wheezes, and no crackles. No accessory muscle use. HEART: RRR, normal S1 and S2 without murmur ABDOMEN: Soft, nondistended, mild epigastric tenderness, no suprapubic tenderness, hepatomegaly noted 2 finger widths below rib angle MUSCULOSKELETAL: No CVA tenderness. EXTREMITIES: 2+ DP pulses, warm, well-perfused. No peripheral edema. NEUROLOGICAL: non-focal, not tremulous PSYCHIATRIC: Cooperative. Good eye contact. Appropriate mood and affect. SKIN: Warm, dry, no rashes or lesions noted. Laboratory Results - last 24 hr 09/22/17 09/22/17 09/22/17 02:05 02:25 02:25 WBC 10.6 H RBC 5.10 Hgb 14.2 Hct 41.9 D MCV 82.2 MCH 27.9 MCHC 33.9 RDW 14.3 Plt Count 333 D MPV 7.8 Absolute Neuts (auto) 6.2 Neutrophils % 58.8 Lymphocytes % 30.3 Monocytes % 10.1 Eosinophils % 0.1 Basophils % 0.7 Nucleated RBC % 0 PT with INR INR Anticoagulation Therapy Puncture Site ABG pH ABG pCO2 at Pt Temp ABG pO2 at Pt Temp ABG HCO3 ABG O2 Sat (Measured) ABG O2 Content ABG Base Excess Harvey Test VBG pH POC VBG pCO2 POC VBG pO2 Mixed VBG HCO3 Carboxyhemoglobin Methemoglobin O2 Delivery Device Oxygen Flow Rate Vent Mode Vent Rate Mechanical Rate Pressure Support Vent Sodium 122 L* Potassium 2.8 L* D Chloride 61 L D Carbon Dioxide 40 H D Anion Gap 21 H BUN 21 H Creatinine 2.3 H Creat Clearance w eGFR 30.63 POC Glucometer Random Glucose 273 H Hemoglobin A1c % Serum Osmolality Lactic Acid Calcium 9.0 Phosphorus Magnesium Total Bilirubin 1.0 AST 46 H D ALT 86 H D Alkaline Phosphatase 86 Total Protein 8.4 H Albumin 3.9 Lipase Urine Acetone Positive moderate 2+ Alcohol, Quantitative Acetone, Qual Positive moderate 2+ 09/22/17 09/22/17 09/22/17 02:25 03:28 03:30 WBC RBC Hgb Hct MCV MCH MCHC RDW Plt Count MPV Absolute Neuts (auto) Neutrophils % Lymphocytes % Monocytes % Eosinophils % Basophils % Nucleated RBC % PT with INR INR Anticoagulation Therapy Puncture Site ABG pH ABG pCO2 at Pt Temp ABG pO2 at Pt Temp ABG HCO3 ABG O2 Sat (Measured) ABG O2 Content ABG Base Excess Harvey Test VBG pH POC VBG pCO2 POC VBG pO2 Mixed VBG HCO3 Carboxyhemoglobin Methemoglobin O2 Delivery Device Oxygen Flow Rate Vent Mode Vent Rate Mechanical Rate Pressure Support Vent Sodium 127 L Potassium 2.7 L* Chloride 71 L D Carbon Dioxide 37 H Anion Gap 19 H BUN 21 H Creatinine 2.1 H Creat Clearance w eGFR 34.02 POC Glucometer Random Glucose 224 H Hemoglobin A1c % Serum Osmolality 272 L Lactic Acid Calcium 8.0 L Phosphorus Magnesium Total Bilirubin AST ALT Alkaline Phosphatase Total Protein Albumin Lipase Urine Acetone Alcohol, Quantitative < 5.0 Acetone, Qual Positive moderate 2+ 09/22/17 09/22/17 09/22/17 03:41 03:46 03:50 WBC RBC Hgb Hct MCV MCH MCHC RDW Plt Count MPV Absolute Neuts (auto) Neutrophils % Lymphocytes % Monocytes % Eosinophils % Basophils % Nucleated RBC % PT with INR INR Anticoagulation Therapy Puncture Site ABG pH ABG pCO2 at Pt Temp ABG pO2 at Pt Temp ABG HCO3 ABG O2 Sat (Measured) ABG O2 Content ABG Base Excess Harvey Test VBG pH 7.59 H POC VBG pCO2 41.1 POC VBG pO2 40.9 Mixed VBG HCO3 40.1 H* Carboxyhemoglobin Methemoglobin O2 Delivery Device Oxygen Flow Rate Vent Mode Vent Rate Mechanical Rate Pressure Support Vent Sodium Potassium Chloride Carbon Dioxide Anion Gap BUN Creatinine Creat Clearance w eGFR POC Glucometer [phone] Random Glucose Hemoglobin A1c % Serum Osmolality Lactic Acid 2.0 Calcium Phosphorus Magnesium Total Bilirubin AST ALT Alkaline Phosphatase Total Protein Albumin Lipase Urine Acetone Alcohol, Quantitative Acetone, Qual 09/22/17 09/22/17 09/22/17 04:00 08:45 08:45 WBC 8.3 RBC 4.42 Hgb 12.7 Hct 36.7 MCV 83.0 MCH 28.7 MCHC 34.6 RDW 14.4 Plt Count 265 D MPV 7.2 L Absolute Neuts (auto) Neutrophils % Lymphocytes % Monocytes % Eosinophils % Basophils % Nucleated RBC % PT with INR INR Anticoagulation Therapy No Result Required. Puncture Site Left radial ABG pH 7.59 H ABG pCO2 at Pt Temp 39.1 ABG pO2 at Pt Temp 92.8 D ABG HCO3 37.8 H ABG O2 Sat (Measured) 95.3 ABG O2 Content 17.7 ABG Base Excess 14.3 H Harvey Test Positive VBG pH POC VBG pCO2 POC VBG pO2 Mixed VBG HCO3 Carboxyhemoglobin 1.4 Methemoglobin 1.6 H O2 Delivery Device No Result Required. Oxygen Flow Rate No Vent Mode No Result Required. Vent Rate No Result Required. Mechanical Rate No Result Required. Pressure Support Vent No Result Required. Sodium 128 L Potassium 3.2 L Chloride 77 L Carbon Dioxide 35 H Anion Gap 16 BUN 20 H Creatinine 2.0 H Creat Clearance w eGFR 35.99 POC Glucometer Random Glucose 153 H D Hemoglobin A1c % Serum Osmolality Lactic Acid Calcium 7.6 L Phosphorus 3.4 D Magnesium 2.0 Total Bilirubin 0.9 AST 38 H ALT 66 D Alkaline Phosphatase 71 D Total Protein 6.9 Albumin 3.2 L Lipase 283 Urine Acetone Alcohol, Quantitative Acetone, Qual 09/22/17 09/22/17 08:45 08:45 WBC RBC Hgb Hct MCV MCH MCHC RDW Plt Count MPV Absolute Neuts (auto) Neutrophils % Lymphocytes % Monocytes % Eosinophils % Basophils % Nucleated RBC % PT with INR 11.70 INR 1.04 Anticoagulation Therapy Puncture Site ABG pH ABG pCO2 at Pt Temp ABG pO2 at Pt Temp ABG HCO3 ABG O2 Sat (Measured) ABG O2 Content ABG Base Excess Harvey Test VBG pH POC VBG pCO2 POC VBG pO2 Mixed VBG HCO3 Carboxyhemoglobin Methemoglobin O2 Delivery Device Oxygen Flow Rate Vent Mode Vent Rate Mechanical Rate Pressure Support Vent Sodium Potassium Chloride Carbon Dioxide Anion Gap BUN Creatinine Creat Clearance w eGFR POC Glucometer Random Glucose Hemoglobin A1c % 10.8 H D Serum Osmolality Lactic Acid Calcium Phosphorus Magnesium Total Bilirubin AST ALT Alkaline Phosphatase Total Protein Albumin Lipase Urine Acetone Alcohol, Quantitative Acetone, Qual ASSESSMENT/PLAN: Alcoholic Ketoacidosis Severe electrolyte / metabolic disarray due to chronic vomiting HAGMA ETOH abuse Presumed history of ETOH withdrawal seizure in the past IVF with NS Replete lytes Detox Monitor for withdrawal symptoms PO as tolerated No insulin drip VTE prophylaxis Floor Dr Israel Critical care time spent in reviewing chart, evaluating patient and formulating plan - 36 minutes.
[2017-09-22] MEDS: chlordiazePOXIDE HCL 25 MG CAPSULE PO SCH ×3 (11:57→23:12)
[2017-09-22] MEDS: INSULIN SLIDING SCALE (NOVOLOG) 1 VIAL SQ SCH ×2 (11:59→17:11)
[2017-09-22 12:53] LABS: ANION GAP 14 (8-16); BLOOD UREA NITROGEN 21 mg/dL (7-18); CALCIUM 7.7 mg/dL (8.5-10.1); CHLORIDE 77 mmol/L (98-107); CO2 34 mmol/L (21-32); CREATININE 2.2 mg/dL (0.7-1.3); POTASSIUM 3.5 mmol/L (3.5-5.1)
[2017-09-22 13:12] LABS: GLUCOSE,RANDOM 333 mg/dL (74-106); SODIUM 125 mmol/L (136-145)
--- NOTE | 2017-09-22 14:15 | CON.NEP ---
Consult Consult Specialty:: nephrology Referred by:: eduarda Reason for Consultation:: hyponatremia - History of Present Illness Chief Complaint: nausea and vomiting - Past Medical History Cardio/Vascular: Yes: HTN Gastrointestinal: Yes: GERD Hepatobiliary: Yes: Hepatitis A Psych: Yes: Other (ETOH addiction) Endocrine: Yes: Diabetes Mellitus - Past Surgical History Past Surgical History: Yes: None - Alcohol/Substance Use Hx Alcohol Use: No - Smoking History Smoking history: Current some day smoker Have you smoked in the past 12 months: No Aproximately how many cigarettes per day: 1 Home Medications - Allergies Allergies/Adverse Reactions: Allergies Allergy/AdvReac Type Severity Reaction Status Date / Time No Known Allergies Allergy Verified 09/22/17 02:12 - Home Medications Home Medications: Ambulatory Orders Metformin HCl 850 mg PO BID 09/22/17 Family Disease History - Family Disease History Family Disease History: Diabetes: Mother, Heart Disease: Father Nephrology Consult - Height Height: 5 ft 3.6 in - Weight Weight: 142 lb 4 oz - BMI Body Mass Index (BMI): 24.7 - Lab Results CBC,BMP: CBC, BMP 09/22/17 08:45 09/22/17 12:18 Anion Gap: Anion Gap Anion Gap 14 (8-16) 09/22/17 12:18 - Physical Examination Vital Signs: Vital Signs Temperature 98.3 F 09/22/17 13:12 Pulse Rate 89 09/22/17 13:12 Respiratory Rate 18 09/22/17 12:00 Blood Pressure 115/74 09/22/17 12:00 O2 Sat by Pulse Oximetry (%) 100 09/22/17 07:45 Assessment/Plan hyponatremia dehydration metabolic alkalosis ketosis DM out of control Azotemia is probably MOISES from Prerenal factors nonoliguric arf may yet improve with iv f Plan- continue to hydrate with saline follow chemistries 3 to 4 times a day for now to monitor rate of sodium correction follow urine outputs which seem to be good right now
[2017-09-22 16:11] LABS: URINE APPEARANCE CLEAR; URINE BILIRUBIN NEGATIVE (<2.0 mg/dL); URINE COLOR LTYELLOW; URINE GLUCOSE (UA) 3+ (NEGATIVE); URINE KETONE 1+ (NEGATIVE); URINE LEUK ESTERASE NEGATIVE (NEGATIVE); URINE NITRITE NEGATIVE (NEGATIVE); URINE PROTEIN NEGATIVE (NEGATIVE); URINE UROBILINOGEN NEGATIVE mg/dL (0.2-1.0)
[2017-09-22] MEDS: PANTOPRAZOLE 40 MG TABLET (FP) PO SCH (16:14)
[2017-09-22 16:26] LABS: COCAINE, UR NEGATIVE ng/ml (CUTOFF=300); OPIATES, URI NEGATIVE ng/ml (CUTOFF=300); PHENCYCLIDINE,URINE NEGATIVE ng/ml (CUTOFF=25); URINE AMPHETAMINES NEGATIVE ng/ml (CUTOFF=500); URINE BARBITURATES NEGATIVE ng/ml (CUTOFF=200); URINE BENZODIAZEPINES NEGATIVE ng/ml (CUTOFF=200)
[2017-09-22 16:27] LABS: METHADONE, UR NEGATIVE ng/ml (CUTOFF=300)
[2017-09-22 16:57] LABS: ANION GAP 10 (8-16); BLOOD UREA NITROGEN 26 mg/dL (7-18); CALCIUM 7.3 mg/dL (8.5-10.1); CHLORIDE 82 mmol/L (98-107); CO2 35 mmol/L (21-32); CREATININE 2.4 mg/dL (0.7-1.3); GLUCOSE,RANDOM 270 mg/dL (74-106); POTASSIUM 3.6 mmol/L (3.5-5.1); SODIUM 127 mmol/L (136-145)
[2017-09-22] MEDS ORDERED: METOCLOPRAMIDE HCL 10 MG TABLET (FP) PO ONE (20:45)
[2017-09-22 21:33] LABS: ANION GAP 9 (8-16); BLOOD UREA NITROGEN 26 mg/dL (7-18); CALCIUM 7.3 mg/dL (8.5-10.1); CHLORIDE 91 mmol/L (98-107); CO2 31 mmol/L (21-32); CREATININE 2.7 mg/dL (0.7-1.3); GLUCOSE,RANDOM 292 mg/dL (74-106); SODIUM 131 mmol/L (136-145)
[2017-09-22] MEDS ORDERED: CHLORHEXIDINE GLUCONATE 4% CLEANSER FOR DECOLONIZATION TP SCH (22:00)
[2017-09-22 23:21] VITALS: BMI 24.7
[2017-09-23] MEDS: chlordiazePOXIDE HCL 25 MG CAPSULE PO SCH ×4 (05:04→22:10)
[2017-09-23] MEDS: HEPARIN NA (PORCINE) 5,000 UNITS/ML 1ML VIAL SQ SCH ×3 (05:05→22:10)
[2017-09-23] MEDS: INSULIN SLIDING SCALE (NOVOLOG) 1 VIAL SQ SCH ×3 (06:15→16:03)
[2017-09-23 08:25] LABS: CHLORIDE 94 mmol/L (98-107); POTASSIUM 3.9 mmol/L (3.5-5.1); SODIUM 135 mmol/L (136-145)
[2017-09-23 08:27] LABS: HEMOGLOBIN 12.3 GM/dL (11.7-16.9); MCH 28.8 pg (25.7-33.7); MCHC 34.1 g/dl (32.0-35.9); MEAN CELL VOLUME 84.3 fl (80-96); MEAN PLT VOLUME 8.2 fl (7.5-11.1); PLATELET COUNT 238 K/MM3 (134-434); RBC 4.27 M/mm3 (4.00-5.60); RDW 14.1 % (11.9-15.9); WHITE BLOOD COUNT 5.3 K/mm3 (4.0-10.0)
[2017-09-23 08:31] LABS: ANION GAP 10 (8-16); BLOOD UREA NITROGEN 25 mg/dL (7-18); CO2 31 mmol/L (21-32); CREATININE 2.3 mg/dL (0.7-1.3); GLUCOSE,RANDOM 242 mg/dL (74-106); MAGNESIUM 2.1 mg/dL (1.8-2.4); PHOSPHOROUS 1.9 mg/dL (2.5-4.9)
[2017-09-23] MEDS ORDERED: THIAMINE HCL 100 MG TABLET (FP) PO SCH (10:00)
[2017-09-23] MEDS ORDERED: NAPH,MB-DB/K PH,MBDB POWDER PACKET PO ONE (10:00)
[2017-09-23] MEDS: MUPIROCIN 2% TOPICAL OINTMENT FOR DECOLONIZATION NS SCH (10:02)
[2017-09-23] MEDS: PRENATAL VITAMINS W/ FOLIC ACID TABLET (FP) PO SCH (10:02)
[2017-09-23] MEDS: PANTOPRAZOLE 40 MG TABLET (FP) PO SCH (10:02)
--- NOTE | 2017-09-23 10:11 | EKG ---
Test Reason : Blood Pressure : / mmHG Vent. Rate : 097 BPM Atrial Rate : 097 BPM P-R Int : 148 ms QRS Dur : 082 ms QT Int : 360 ms P-R-T Axes : 056 027 -06 degrees QTc Int : 457 ms NORMAL SINUS RHYTHM INFERIOR INFARCT (CITED ON OR BEFORE 24-MAY-2014) ABNORMAL ECG WHEN COMPARED WITH ECG OF 09-JUN-2015 20:03, NO SIGNIFICANT CHANGE WAS FOUND Confirmed by MYLES DSOUZA, ERIC ([id number]) on 09/23/2017 10:10:49 AM Referred By: Confirmed By:ERIC BUENO MD
[2017-09-23] MEDS: POTASSIUM CHLORIDE 40 MEQ in SODIUM CHLORIDE 1,000 ML IVPB SCH (16:00)
[2017-09-23] MEDS ORDERED: INSULIN (NOVOLOG) ASPART 100 UNITS/ML 10ML VIAL ONE ×2 (16:06→18:55)
--- NOTE | 2017-09-23 17:44 | PN ---
Progress Note (short form) - Note Progress Note: admitted s/p nausea/vomiting with hyponatremia miguel and alcoholic ketosis transferred out of icu Current Medications Chlordiazepoxide HCl (Librium -) 50 mg PO Q6HPO [facility] Last Admin: 09/23/17 13:05 Dose: 50 mg Chlordiazepoxide HCl (Librium -) 25 mg PO Q4H PRN PRN Reason: WITHDRAWAL(CONT SUBST) Heparin Sodium (Porcine) (Heparin -) 5,000 unit SQ TID [facility] Last Admin: 09/23/17 16:03 Dose: 5,000 unit Potassium Chloride 40 meq/ (Sodium Chloride) 1,020 mls @ 75 mls/hr IVPB Q13H [facility] Stop: 09/24/17 03:50 Last Admin: 09/23/17 16:00 Dose: 75 mls/hr Insulin Aspart (Novolog Vial Sliding Scale -) 1 vial SQ TIDAC [facility]; Protocol Last Admin: 09/23/17 16:03 Dose: 8 units Mupirocin (Bactroban Ointment (For Decolonization) -) 1 applic NS BID [facility] Stop: 09/27/17 09:59 Last Admin: 09/23/17 10:02 Dose: Not Given Ondansetron HCl (Zofran Injection) 4 mg IVPUSH Q6H PRN PRN Reason: NAUSEA AND/OR VOMITING Pantoprazole Sodium (Protonix -) 40 mg PO DAILY [facility] Last Admin: 09/23/17 10:02 Dose: 40 mg Multivit/Folic Acid/Iron ( Vitamins (Sjr) -) 1 tab PO DAILY [facility] Last Admin: 09/23/17 10:02 Dose: 1 tab Thiamine HCl (Vitamin B1 -) 100 mg PO DAILY [facility] Last Admin: 09/23/17 10:01 Dose: 100 mg Last Vital Signs Temp Pulse Resp BP Pulse Ox 97.9 F 76 20 140/94 100 09/23/17 17:19 09/23/17 17:19 09/23/17 17:19 09/23/17 17:19 09/23/17 10:00 CBC, BMP 09/23/17 06:46 09/23/17 06:46 improving clinically hyponatremia resolving nedds monitoring for alcohol withdrawal Plan- follow bmp
--- NOTE | 2017-09-23 18:58 | PN ---
<Sandra Styles - Last Filed: 09/23/17 19:52> Physical Exam: SUBJECTIVE: 47yo M with hx of NIDDMII (metformin), alcohol abuse (1 pint of vodka/day, last drank 7/4 8 beers), and HTN who is admitted for detox from alcohol. Patient had no complaints overnight, but would like to leave. Will continue Librium taper. No acute events OBJECTIVE: Vital Signs Period Temp Pulse Resp BP Sys/Villavicencio Pulse Ox Last 24 Hr 97.7 F-98.4 F 69-84 13-22 117-140/77-94 100-100 GENERAL: The patient is awake, alert, and fully oriented, in no acute distress. EYES: PERRL, extraocular movements intact, sclera anicteric, conjunctiva clear. No ptosis. ENT: moist mucous membranes. NECK: supple. LUNGS: Breath sounds equal, clear to auscultation bilaterally, no wheezes, no crackles, no accessory muscle use. HEART: Regular rate and rhythm, S1, S2 ABDOMEN: Soft, mildly nontender, nondistended, normoactive bowel sounds, no guarding, no rebound, no masses. EXTREMITIES: 2+ pulses, warm, well-perfused, no edema. NEUROLOGICAL: Cranial nerves II through XII grossly intact. Normal speech, gait not observed. PSYCH: Normal mood, normal affect. SKIN: Warm, dry Laboratory Results - last 24 hr 09/22/17 09/23/17 09/23/17 20:30 06:08 06:46 WBC 5.3 RBC 4.27 Hgb 12.3 Hct 36.0 MCV 84.3 MCH 28.8 MCHC 34.1 RDW 14.1 Plt Count 238 MPV 8.2 D Sodium 131 L Potassium 4.0 Chloride 91 L D Carbon Dioxide 31 Anion Gap 9 BUN 26 H Creatinine 2.7 H Creat Clearance w eGFR 25.46 POC Glucometer 254 Random Glucose 292 H Calcium 7.3 L Phosphorus Magnesium 09/23/17 09/23/17 09/23/17 06:46 13:08 16:02 WBC RBC Hgb Hct MCV MCH MCHC RDW Plt Count MPV Sodium 135 L Potassium 3.9 Chloride 94 L Carbon Dioxide 31 Anion Gap 10 BUN 25 H Creatinine 2.3 H Creat Clearance w eGFR 30.63 POC Glucometer 273 327 Random Glucose 242 H Calcium 8.0 L Phosphorus 1.9 L D Magnesium 2.1 09/23/17 16:51 WBC RBC Hgb Hct MCV MCH MCHC RDW Plt Count MPV Sodium Potassium Chloride Carbon Dioxide Anion Gap BUN Creatinine Creat Clearance w eGFR POC Glucometer Random Glucose Calcium Phosphorus 1.6 L Magnesium Active Medications Generic Name Dose Route Start Last Admin Trade Name Freq PRN Reason Stop Dose Admin Chlordiazepoxide HCl 50 mg 09/22/17 12:00 09/23/17 13:05 Librium - PO 50 mg Q6HPO [facility] Administration Chlordiazepoxide HCl 25 mg 09/22/17 08:19 Librium - PO Q4H PRN WITHDRAWAL(CONT SUBST) Heparin Sodium (Porcine) 5,000 unit 09/22/17 06:00 09/23/17 16:03 Heparin - SQ 5,000 unit TID [facility] Administration Potassium Chloride 40 meq/ 1,020 mls @ 75 mls/hr 09/23/17 14:15 09/23/17 16: 00 Sodium Chloride IVPB 09/24/17 03:50 75 mls/hr Q13H [facility] Administration Insulin Aspart 1 vial 09/22/17 11:00 09/23/17 16:03 Novolog Vial Sliding Scale - SQ 8 units TIDAC [facility]AK Administration Protocol Mupirocin 1 applic 09/22/17 10:00 09/23/17 10:02 Bactroban Ointment (For Decolonization) - NS 09/27/17 09:59 Not Given BID [facility] Ondansetron HCl 4 mg 09/22/17 04:14 Zofran Injection IVPUSH Q6H PRN NAUSEA AND/OR VOMITING Pantoprazole Sodium 40 mg 09/22/17 16:15 09/23/17 10:02 Protonix - PO 40 mg DAILY [facility] Administration Multivit/Folic Acid/Iron 1 tab 09/22/17 10:00 09/23/17 10:02 Vitamins (Sjr) - PO 1 tab DAILY [facility] Administration Thiamine HCl 100 mg 09/23/17 10:00 09/23/17 10:01 Vitamin B1 - PO 100 mg DAILY [facility] Administration ASSESSMENT/PLAN: 47yo M with hx of NIDDMII (metformin), alcohol abuse (1 pint of vodka/day, last drank 7/4 8 beers), and HTN who is admitted for detox from alcohol. #Detox: -continue Librium taper - continue as per Detox consult - monitor for signs of DT's -Zofran as needed for nausea #MOISES -BUN: 25 Cr: 2.3, f/u labs -continue fluids #DM -continue SS - diabetic diet #DVT ppx: - continue heparin Dispo: pt refusing treatment at [facility] Visit type - Emergency Visit Emergency Visit: No - New Patient This patient is new to me today: Yes Date on this admission: 09/23/17 - Critical Care Critical Care patient: No <Sheri Weldon - Last Filed: 09/24/17 19:08> Physical Exam: Continue current management.
--- NOTE | 2017-09-23 19:40 | CONSULT ---
Consult Detox [facility] Reason for Current Admission/Consult: Detox consulted for pts h/o alcohol use - History History of Present Illness: Pt states he has been using alcohol for several years. Mostly a binge drinker on the weekends. Does not drink during the week. Pt states with this episode of binge drinking started on 09/15 when he went with family to [place]. Pt states he drank unknown amounts- but at least several beers and "shots" of drinks until September 19. Pt states he did not eat and drink during this time- only alcohol use. Also did not take his medications. Pt started feeling dizzy and had nausea and vomiting on September 6ht and so came to ER. Pt is feeling fine now. REc'd IV fluids and is on librium detox protocol - History Source History Provided By: Patient Limitations to Obtaining History: No Limitations - Alcohol/Substance Use Hx Alcohol Use: Yes Hx Substance Use: No Hx Substance Use Treatment: No - Current Drug/Alcohol Use Alcohol Route: Oral Frequency: 3-6 times per week Amount used: several beers and liquor Date of Last Use: 09/19/17 - Past Medical History Cardio/Vascular: Yes: HTN Gastrointestinal: Yes: GERD Hepatobiliary: Yes: Hepatitis A Psych: Yes: Other (ETOH addiction) Endocrine: Yes: Diabetes Mellitus - Past Surgical History Past Surgical History: Yes: None - Significant Medical Findings: pt is without Sx now PE- lungs clear abd soft heart RRR neuro- a and oriented CIWA Score - CIWA Score Nausea/Vomitin-No Nausea/No Vomiting Muscle Tremors: None Anxiety: 0-No Anxiety, at Ease Agitation: 0-Normal Activity Paroxysmal Sweats: No Perspiration Orientation: 0-Oriented Tacttile Disturbances: 0-None Auditory Disturbances: 0-None Visual Disturbances: 0-None Headache: 0-None Present CIWA-Ar Total Score: 0 Assessment Plan - Diagnosis (1) Alcohol abuse Status: Acute - Plan Plan: pt does not want to come to detox at [facility]. Pt is more of a binge drinker not a daily drinker. d/w pt lifestyle changes- including change in diet, increase exercise, meditation, yoga, AA to help him to stay away from alcohol - Medication Detox Regimen/Protocol: Librium (pt was on librium- will taper librium)
[2017-09-23] MEDS ORDERED: ONDANSETRON 4 MG/2 ML VIAL IVPUSH PRN (19:50)
[2017-09-23] MEDS ORDERED: chlordiazePOXIDE HCL 25 MG CAPSULE PO PRN (19:50)
[2017-09-23] MEDS ORDERED: MUPIROCIN 2% TOPICAL OINTMENT FOR DECOLONIZATION NS SCH (22:00)
[2017-09-24] MEDS: chlordiazePOXIDE HCL 25 MG CAPSULE PO SCH ×2 (06:16→11:24)
[2017-09-24] MEDS: POTASSIUM CHLORIDE 40 MEQ in SODIUM CHLORIDE 1,000 ML IVPB SCH (06:16)
[2017-09-24] MEDS: HEPARIN NA (PORCINE) 5,000 UNITS/ML 1ML VIAL SQ SCH ×2 (06:16→14:22)
[2017-09-24] MEDS ORDERED: INSULIN (NOVOLOG) ASPART 100 UNITS/ML 10ML VIAL ONE (06:22)
[2017-09-24] MEDS: INSULIN SLIDING SCALE (NOVOLOG) 1 VIAL SQ SCH ×2 (06:23→12:05)
--- NOTE | 2017-09-24 07:13 | PN ---
<Sandra Styles - Last Filed: 09/24/17 09:27> Physical Exam: SUBJECTIVE: 47yo M with hx of NIDDMII (metformin), alcohol abuse (1 pint of vodka/day, last drank 7/4 8 beers), and HTN who is admitted for detox from alcohol. Patient had no complaints overnight, but would like to leave. Will continue Librium taper. No acute events overnight. OBJECTIVE: Vital Signs Period Temp Pulse Resp BP Sys/Villavicencio Pulse Ox Last 24 Hr 97.6 F-98.1 F 64-82 18-20 104-143/77-94 98-100 GENERAL: The patient is awake, alert, and fully oriented, in no acute distress. EYES: PERRL, extraocular movements intact, sclera anicteric, conjunctiva clear. No ptosis. ENT: moist mucous membranes. NECK: supple. LUNGS: Breath sounds equal, clear to auscultation bilaterally, no wheezes, no crackles, no accessory muscle use. HEART: Regular rate and rhythm, S1, S2 ABDOMEN: Soft, mildly nontender, nondistended, normoactive bowel sounds, no guarding, no rebound, no masses. EXTREMITIES: 2+ pulses, warm, well-perfused, no edema. NEUROLOGICAL: Cranial nerves II through XII grossly intact. Normal speech, gait not observed. PSYCH: Normal mood, normal affect. SKIN: Warm, dry Laboratory Results - last 24 hr 09/23/17 09/23/17 09/23/17 06:46 06:46 13:08 WBC 5.3 RBC 4.27 Hgb 12.3 Hct 36.0 MCV 84.3 MCH 28.8 MCHC 34.1 RDW 14.1 Plt Count 238 MPV 8.2 D Sodium 135 L Potassium 3.9 Chloride 94 L Carbon Dioxide 31 Anion Gap 10 BUN 25 H Creatinine 2.3 H Creat Clearance w eGFR 30.63 POC Glucometer 273 Random Glucose 242 H Calcium 8.0 L Phosphorus 1.9 L D Magnesium 2.1 09/23/17 09/23/17 09/24/17 16:02 16:51 06:20 WBC RBC Hgb Hct MCV MCH MCHC RDW Plt Count MPV Sodium Potassium Chloride Carbon Dioxide Anion Gap BUN Creatinine Creat Clearance w eGFR POC Glucometer 327 278 Random Glucose Calcium Phosphorus 1.6 L Magnesium Active Medications Generic Name Dose Route Start Last Admin Trade Name Freq PRN Reason Stop Dose Admin Chlordiazepoxide HCl 25 mg 09/23/17 23:00 09/24/17 06:16 Librium - PO 09/24/17 17:01 25 mg [id number] BURAK Administration Chlordiazepoxide HCl 15 mg 09/24/17 23:00 Librium - PO 09/25/17 17:01 [id number] BURAK Chlordiazepoxide HCl 25 mg 09/23/17 19:50 Librium - PO Q4H PRN WITHDRAWAL(CONT SUBST) Heparin Sodium (Porcine) 5,000 unit 09/23/17 22:00 09/24/17 06:16 Heparin - SQ 5,000 unit TID [facility]AK Administration Insulin Aspart 1 vial 09/24/17 07:00 09/24/17 06:23 Novolog Vial Sliding Scale - SQ 6 unit TIDAC BURAK Administration Protocol Ondansetron HCl 4 mg 09/23/17 19:50 Zofran Injection IVPUSH Q6H PRN NAUSEA AND/OR VOMITING Pantoprazole Sodium 40 mg 09/24/17 10:00 Protonix - PO DAILY [facility] Multivit/Folic Acid/Iron 1 tab 09/24/17 10:00 Vitamins (Sjr) - PO DAILY [facility] Thiamine HCl 100 mg 09/24/17 10:00 Vitamin B1 - PO DAILY [facility] ASSESSMENT/PLAN: 47yo M with hx of NIDDMII (metformin), alcohol abuse (1 pint of vodka/day, last drank 7/4 8 beers), and HTN who is admitted for detox from alcohol. #Detox: -continue Librium taper (day 2/5) - continue as per Detox consult - monitor for signs of DT's -Zofran as needed for nausea #MOISES -BUN: 24 Cr: 2.1, f/u labs -continue fluids #DM -continue SS - diabetic diet #DVT ppx: - continue heparin #FEN - phosp: 1.6-repleted - / NS @ 75 ( 1 bag) Dispo: pt refusing treatment at [facility] <Sheri Weldon - Last Filed: 09/24/17 19:10> Physical Exam: Continue current therapy. Visit type - Emergency Visit Emergency Visit: Yes ED Registration Date: 09/22/17 Care time: The patient presented to the Emergency Department on the above date and was hospitalized for further evaluation of their emergent condition. - New Patient This patient is new to me today: No - Critical Care Critical Care patient: No - Discharge Referral Referred to [facility] No
[2017-09-24 09:09] LABS: BLOOD UREA NITROGEN 24 mg/dL (7-18); CHLORIDE 105 mmol/L (98-107); GLUCOSE,RANDOM 124 mg/dL (74-106); POTASSIUM 4.3 mmol/L (3.5-5.1); SODIUM 139 mmol/L (136-145)
[2017-09-24 09:14] LABS: ANION GAP 10 (8-16); CALCIUM 8.8 mg/dL (8.5-10.1); CO2 24 mmol/L (21-32); CREATININE 2.1 mg/dL (0.7-1.3)
[2017-09-24] MEDS ORDERED: SODIUM CHLORIDE 0.45% 1,000 ML IV SCH (09:30)
[2017-09-24] MEDS ORDERED: NAPH,MB-DB/K PH,MBDB POWDER PACKET PO ONE (10:00)
[2017-09-24] MEDS ORDERED: PANTOPRAZOLE 40 MG TABLET (FP) PO SCH (10:00)
[2017-09-24] MEDS ORDERED: THIAMINE HCL 100 MG TABLET (FP) PO SCH (10:00)
[2017-09-24] MEDS ORDERED: PRENATAL VITAMINS W/ FOLIC ACID TABLET (FP) PO SCH (10:00)
[2017-09-24] MEDS ORDERED: chlordiazePOXIDE HCL 25 MG CAPSULE PO PRN (11:55)
[2017-09-24 15:12] VITALS: BP 144/86; PULSE 73; TEMP 97.7
[2017-09-24] MEDS ORDERED: chlordiazePOXIDE 5 MG CAPSULE PO SCH ×2 (15:24→23:00)
[2017-09-24] MEDS ORDERED: NAPH,MB-DB/K PH,MBDB POWDER PACKET PO SCH (15:30)
--- NOTE | 2017-09-24 16:45 | PN ---
Progress Note (short form) - Note Progress Note: Renal follow up for MOISES Pt seen and examined at the bedside awake and alert making urine denies any dysuria or obstructive symptoms tolerating oral diet Vital Signs Temperature 97.7 F 09/24/17 15:10 Pulse Rate 73 09/24/17 15:10 Respiratory Rate 20 09/24/17 15:10 Blood Pressure 144/86 09/24/17 15:10 O2 Sat by Pulse Oximetry (%) 98 09/24/17 10:00 Intake & Output 09/21/17 09/22/17 09/23/17 09/24/17 23:59 23:59 23:59 23:59 Intake Total 1840 1520 1500 Output Total 2300 Balance -460 1520 1500 Weight 64.524 kg NAD awake and alert RRR no M/R CTA No LE edema CBC, BMP 09/23/17 06:46 09/24/17 07:30 47 year old gentleman with PMhx of DM not on insulin, ETOH abuse and hypertension admitted for Detox and found to have MOISES. #MOISES #ETOH intoxication #Hypertension Renal function improved but not at baseline Pt reports having been told that he has CKD will check US of the kidney and bladder as well as urine studies oral intake as tolerated if discharged will need to follow up with renal Thank you Juarez Anderson DO 47yo M with hx of NIDDMII (metformin), alcohol abuse (1 pint of vodka/day, last drank 7/4 8 beers), and HTN who is admitted for detox from alcohol. Patient had no complaints overnight, but would like to leave. Will continue Librium taper. No acute events overnight.
--- NOTE | 2017-09-24 19:13 | PN ---
Teaching Attending Note Name of Resident: Sandra Styles ATTENDING PHYSICIAN STATEMENT I saw and evaluated the patient. I reviewed the resident's note and discussed the case with the resident. I agree with the resident's findings and plan as documented. SUBJECTIVE: Patient is comfortable, would like to go home. OBJECTIVE: Vital Signs Temperature 97.7 F 09/24/17 15:10 Pulse Rate 73 09/24/17 15:10 Respiratory Rate 20 09/24/17 15:10 Blood Pressure 144/86 09/24/17 15:10 O2 Sat by Pulse Oximetry (%) 98 09/24/17 10:00 CBCD WBC 5.3 K/mm3 (4.0-10.0) 09/23/17 06:46 RBC 4.27 M/mm3 (4.00-5.60) 09/23/17 06:46 Hgb 12.3 GM/dL (11.7-16.9) 09/23/17 06:46 Hct 36.0 % (35.4-49) 09/23/17 06:46 MCV 84.3 fl (80-96) 09/23/17 06:46 MCHC 34.1 g/dl (32.0-35.9) 09/23/17 06:46 RDW 14.1 % (11.9-15.9) 09/23/17 06:46 Plt Count 238 K/MM3 (134-434) 09/23/17 06:46 MPV 8.2 fl (7.5-11.1) D 09/23/17 06:46 CMP Sodium 139 mmol/L (136-145) 09/24/17 07:30 Potassium 4.3 mmol/L (3.5-5.1) 09/24/17 07:30 Chloride 105 mmol/L (98-107) D 09/24/17 07:30 Carbon Dioxide 24 mmol/L (21-32) D 09/24/17 07:30 Anion Gap 10 (8-16) 09/24/17 07:30 BUN 24 mg/dL (7-18) H 09/24/17 07:30 Creatinine 2.1 mg/dL (0.7-1.3) H 09/24/17 07:30 Creat Clearance w eGFR 34.02 (>60) 09/24/17 07:30 Random Glucose 124 mg/dL (74-106) H D 09/24/17 07:30 Calcium 8.8 mg/dL (8.5-10.1) 09/24/17 07:30 Total Bilirubin 0.9 mg/dL (0.2-1.0) 09/22/17 08:45 AST 38 U/L (15-37) H 09/22/17 08:45 ALT 66 U/L (12-78) D 09/22/17 08:45 Alkaline Phosphatase 71 U/L (45-117) D 09/22/17 08:45 Total Protein 6.9 g/dl (6.4-8.2) 09/22/17 08:45 Albumin 3.2 g/dl (3.4-5.0) L 09/22/17 08:45 Home Medications Medication Instructions Recorded Insulin (Levemir) [Levemir Vial] 10 units SQ DAILY #100 units 09/24/17 Insulin Sliding Scale [Novolog See Protocol SQ ACHS #1 vial 09/24/17 Vial Sliding Scale -] Lancets 1 each ACHS #1 box 09/24/17 Miscellaneous Medical Supply 1 each SQ ASDIR #1 kit 09/24/17 [Glucometer Device] Miscellaneous Medical Supply 1 each SQ ASDIR #1 box 09/24/17 [Glucometer Test Strips #100] Naph,Mb-Db/K pH,Mbdb [PHOS-NaK 1 packet PO TID #6 pow 09/24/17 PACKET -] Sitagliptin Phosphate [Januvia -] 100 mg PO DAILY@0700 #30 ud 09/24/17 ASSESSMENT AND PLAN: Patient is a 47 year old gentleman with PMhx of DM not on insulin, ETOH abuse and hypertension admitted for Detox and found to have MOISES. #MOISES improving, as per patient he has CKD , kidney and bladder US as an outpatient. #ETOH intoxication patient was detoxed #Hypertension controlled patient will follow with nephrology
--- NOTE | 2017-09-25 06:13 | DS ---
Physical Exam: SUBJECTIVE: 47yo M with hx of NIDDMII (metformin), alcohol abuse (1 pint of vodka/day, last drank 7/4 8 beers), and HTN who is admitted for detox from alcohol. Patient had no complaints overnight, but would like to leave. Will continue Librium taper. No acute events overnight. OBJECTIVE: Vital Signs Period Temp Pulse Resp BP Sys/Villavicencio Pulse Ox Last 24 Hr 97.7 F-98.1 F 71-73 20-20 122-144/81-86 98 PHYSICAL EXAM GENERAL: The patient is awake, alert, and fully oriented, in no acute distress. EYES: PERRL, extraocular movements intact, sclera anicteric, conjunctiva clear. No ptosis. ENT: moist mucous membranes. NECK: supple. LUNGS: Breath sounds equal, clear to auscultation bilaterally, no wheezes, no crackles, no accessory muscle use. HEART: Regular rate and rhythm, S1, S2 ABDOMEN: Soft, mildly nontender, nondistended, normoactive bowel sounds, no guarding, no rebound, no masses. EXTREMITIES: 2+ pulses, warm, well-perfused, no edema. NEUROLOGICAL: Cranial nerves II through XII grossly intact. Normal speech, gait not observed. PSYCH: Normal mood, normal affect. SKIN: Warm, dry LABS Laboratory Results - last 24 hr 09/24/17 09/24/17 09/24/17 06:20 07:30 11:49 Sodium 139 Potassium 4.3 Chloride 105 D Carbon Dioxide 24 D Anion Gap 10 BUN 24 H Creatinine 2.1 H Creat Clearance w eGFR 34.02 POC Glucometer 278 247 Random Glucose 124 H D Calcium 8.8 HOSPITAL COURSE: Date of Admission:09/22/17 Patient is a 47 y/o male who was admitted to the hospital for non bilious vomiting and abdominal pain for several days. He was found to be hyponatremic, hypokalemic, and had a ABG that was alkalotic. Patient was put on an insulin drip to close the anion gap. His electrolytes were repleted until he had a change in mental status. His hypercapnic respiration improved as his status improved. Because of his frequent alcohol use a Librium taper was started. Detox consult spoke with him and he does not feel he has a drinking problem and does not have any interest in rehab. Chest Xray showed no acute pathology. Patient was given fluids and electrolyte repletion. Discussed further management of controling his diabetes. Patient was discharged home with Levemir , Januvia, and sliding scale insulin. Date of Discharge: 09/25/17 Minutes to complete discharge: 35 Discharge Summary Reason For Visit: DIABETIC KETOACIDOSIS/NAUSEA AND VOMITING Condition: Good - Instructions Diet, Activity, Other Instructions: You were admitted to the hospital because your glucose was very high and causing electrolyte abnormalities. You were given medications to help bring your sugar level down and correct your electrolytes. Because of your frequent use of alcohol, you were given a medication that would stop you from withdrawing in the hospital. Abusing alcohol can have many negative affects on your body and disregulate your blood sugar , therefore abstinence is recommended. It can worsen the sugar levels in your body and have you have uncontrolled diabetes. Please do not take your metformin since your kidney function is not within normal limit . Take your new medications as prescribed. Follow with a kidney doctor, we referred you . You should follow up with your Primary Care physician within one week. If you experience worsening fevers, chills, chest pain, shortness of breath, nausea, vomiting , diarrhea, please return to the emergency department for evaluation. Referrals: Shahid Alexis [Primary Care Provider] - 1 Week Juarez Anderson MD [Staff Physician] - 2 Weeks Disposition: HOME - Home Medications Comprehensive Discharge Medication List: Ambulatory Orders Insulin (Levemir) [Levemir Vial] 10 units SQ DAILY #100 units 09/24/17 Insulin Sliding Scale [Novolog Vial Sliding Scale -] See Protocol SQ ACHS #1 vial 09/24/17 Lancets 1 each ACHS #1 box 09/24/17 Miscellaneous Medical Supply [Glucometer Device] 1 each SQ ASDIR #1 kit Miscellaneous Medical Supply [Glucometer Test Strips #100] 1 each SQ ASDIR #1 box 09/24/17 Naph,Mb-Db/K pH,Mbdb [PHOS-NaK PACKET -] 1 packet PO TID #6 pow 09/24/17 Sitagliptin Phosphate [Januvia -] 100 mg PO DAILY@0700 #30 ud 09/24/17 This patient is new to me today: No Emergency Visit: No Critical Care patient: No - Discharge Referral Referred to [facility] No
[2017-09-25] MEDS ORDERED: sitaGLIPtin PHOSPHATE 100 MG TABLET (FP) PO SCH (07:00)
[2017-09-25] MEDS ORDERED: INSULIN (LEVEMIR) 100 UNITS/ML UNITS SQ SCH (07:00)
== END 2017-09-24 16:39 | disposition home or self-care (01) | DRG 460 ==
LOC: JER 02:03 → JERBED 04:05 → JICU 05:42 → J7W 09-23 05:32
PROVIDERS: ADMIT Internal Medicine; ATTEND Internal Medicine
PROC: HZ2ZZZZ Detoxification Services for Substance Abuse Treatment (ICD-10-PCS; principal; 2017-09-22)
DX: N17.9 Acute kidney failure, unspecified (principal); E13.10 Other specified diabetes mellitus with ketoacidosis without coma; Z79.4 Long term (current) use of insulin; E87.6 Hypokalemia; E87.1 Hypo-osmolality and hyponatremia; I12.9 Hypertensive chronic kidney disease with stage 1 through stage 4 chronic kidney disease, or unspecified chronic kidney disease; E11.22 Type 2 diabetes mellitus with diabetic chronic kidney disease; N18.9 Chronic kidney disease, unspecified; Z72.0 Tobacco use; F10.229 Alcohol dependence with intoxication, unspecified; E87.3 Alkalosis
CPT/HCPCS: 36415; 36600; 71045-TC-FY; 80048; 80053; 80307; 81003; 82009; 82375; 82607; 82746; 82803; 82962; 83036; 83050; 83605; 83690; 83735; 83930; 84100; 85025; 85027; 85610; 87086; 93005; 93010; 99285-25; J1644; J7030

== ENCOUNTER 2018-04-16 05:40 | Inpatient (IN) | payer OTHER ==
--- NOTE | 2018-04-16 05:44 | PDOC ---
History of Present Illness - General Stated Complaint: ABD PAIN Time Seen by Provider: 04/16/18 05:42 History Source: Patient Exam Limitations: No Limitations - History of Present Illness Initial Comments: 04/16/18 05:43 Pt is a 48yo M with PMH of IDDM, HTN, Alcohol Dependence presenting to ED with complaints of diffuse abdominal pain x1-2 days. Pt describes pain as a burning sensation, diffuse, associated with multiple episodes of nbnb emesis, nausea, chest pain, SOB, headache. Pt states he drank 1pt of vodka last night and has been doing so x1 week. Pt is asking for help to stop drinking. He denies syncope , neck stiffness, fevers, chills, diarrhea, constipation, blood in stools, melena, hematemesis, coffee ground emesis, sick contacts. He states he has had pain like this before from drinking. Denies history of abdominal surgeries. PMD: Mejia PMH: see hpi PSH: none Meds: insulin Social: alcohol use. Denies IV drug use, illicit drug use. Allergies: nkda Past History - Past Medical History Allergies/Adverse Reactions: Allergies Allergy/AdvReac Type Severity Reaction Status Date / Time No Known Allergies Allergy Verified 04/16/18 05:49 Home Medications: Ambulatory Orders Insulin (Levemir) [Levemir Vial] 10 units SQ DAILY #100 units 09/24/17 Insulin Sliding Scale [Novolog Vial Sliding Scale -] See Protocol SQ ACHS #1 vial 09/24/17 Lancets 1 each ACHS #1 box 09/24/17 Miscellaneous Medical Supply [Glucometer Device] 1 each SQ ASDIR #1 kit Miscellaneous Medical Supply [Glucometer Test Strips #100] 1 each SQ ASDIR #1 box 09/24/17 Naph,Mb-Db/K pH,Mbdb [PHOS-NaK PACKET -] 1 packet PO TID #6 pow 09/24/17 Anemia: No Asthma: No Cancer: No Cardiac Disorders: No CVA: No COPD: No CHF: No Dementia: No Diabetes: Yes GI Disorders: No Disorders: No HTN: Yes Hypercholesterolemia: Yes Liver Disease: (hep a?) Seizures: No Thyroid Disease: No - Surgical History Abdominal Surgery: No Appendectomy: No Cardiac Surgery: No Cholecystectomy: No Lung Surgery: No Neurologic Surgery: No Orthopedic Surgery: No - Immunization History Immunization Up to Date: Yes - Suicide/Smoking/Psychosocial Hx Smoking History: Current some day smoker Have you smoked in the past 12 months: No Number of Cigarettes Smoked Daily: 1 Cigars Per Day: 0 'Breaking Loose' booklet given: 06/26/13 Hx Alcohol Use: Yes Drug/Substance Use Hx: No Substance Use Type: Alcohol Hx Substance Use Treatment: No Review of Systems - Review of Systems Constitutional: No: Chills, Fever, Weakness HEENTM: No: Symptoms Reported Respiratory: Yes: Shortness of Breath. No: Cough Cardiac (ROS): Yes: Chest Pain. No: Lightheadedness, Palpitations, Syncope ABD/GI: Yes: See HPI, Nausea, Vomiting, Abdominal cramping (points to epigastrum when asked where pain is most intense). No: Blood Streaked Bowels, Constipated, Diarrhea, Rectal Bleeding, Tarry Stools : No: Burning, Dysuria Musculoskeletal: No: Back Pain, Muscle Pain, Muscle Weakness Integumentary: No: Symptoms Reported Neurological: Yes: Headache. No: Numbness, Tingling, Tremors *Physical Exam - Physical Exam General Appearance: Yes: Nourished, Appropriately Dressed, Moderate Distress HEENT: positive: EOMI, NAYELI, Pharynx Normal, Scleral Icterus (R), Scleral Icterus (L), Other (no nystagmus). negative: Pale Conjunctivae, Photophobia Neck: positive: Trachea midline, Supple. negative: Lymphadenopathy (R), Lymphadenopathy (L) Respiratory/Chest: positive: Lungs Clear, Normal Breath Sounds, Other (no mediastinal crepitus). negative: Crackles, Rales, Rhonchi, Stridor Cardiovascular: positive: Regular Rhythm, Regular Rate, S1, S2. negative: Edema , JVD, Murmur Vascular Pulses: Carotid (R): 2+, Carotid (L): 2+, Dorsalis-Pedis (R): 2+, Doralis-Pedis (L): 2+ Gastrointestinal/Abdominal: positive: Normal Bowel Sounds, Soft. negative: Tender, Distended, Guarding, Rebound, Hernia, Mass Rectal Exam: positive: normal rectal tone, other (no gross blood on glove). negative: melena, hemorrhoids Musculoskeletal: negative: CVA Tenderness Extremity: positive: Normal Capillary Refill, Pelvis Stable Integumentary: positive: Normal Color, Dry, Warm Neurologic: positive: metal stamper II-XII NML intact, Fully Oriented, Alert, Normal Mood/ Affect, Normal Response, Motor Strength 5/5, Other (No fasiculations) ED Treatment Course - LABORATORY CBC & Chemistry Diagram: 04/16/18 05:57 04/16/18 05:57 Medical Decision Making - Medical Decision Making 04/16/18 06:19 Pt is a 48yo M with PMH of IDDM, HTN, Alcohol Dependence presenting to ED with complaints of diffuse abdominal pain x1-2 days. Pt describes pain as a burning sensation, diffuse, associated with multiple episodes of nbnb emesis, nausea, chest pain, SOB, headache. Pt states he drank 1pt of vodka last night and has been doing so x1 week. Pt is asking for help to stop drinking. He denies syncope , neck stiffness, fevers, chills, diarrhea, constipation, blood in stools, hematemesis, coffee ground emesis. He states he has had pain like this before from drinking. Denies history of abdominal surgeries. Vitals: wnl, rectal temp 99.1 PE: slight diffuse abdominal tenderness. Ddx includes but not limited to pancreatitis, cholecystitis, gastritis, ruptured viscus, PUD, colitis, SBO, nephrolithiasis, pyelonephritis, diverticulitis, hangover, ACS, electrolyte disturbance/metabolic derangements. -cbc, cmp, trop, lipase, alcohol level -CT chest, abdomen/pelvis, head -EKG, CXR -IV fluids, pepcid, zofran, iv tylenol Considering giving librium. If all labs/imaging normal, considering sending pt to [facility] for detox. Pt is requesting detox 04/16/18 06:35 EKG: NSR, HR 91, QTc 462. No CHRISTIAN or depressions, n oT wave inversions. CXR: does not appear to have focal consolidations or infiltrates. Mediastinum appears wide but most likely due to rotation. 04/16/18 06:47 lab significant for: Laboratory Tests 04/16/18 04/16/18 05:57 05:57 Sodium 126 L Chloride 80 L Creatinine 1.9 H (baseline) Alcohol, Quantitative < 3.0 04/16/18 06:52 Laboratory Tests 04/16/18 05:57 Troponin I 1.08 H* However no new EKG changes. CT pending. Will repeat trop and EKG. 04/16/18 07:15 Hgb at baseline (12). guaiac pending. CT results pending. Likely admission for NSTEMI Signed out to Dr. Fernandez *DC/Admit/Observation/Transfer Diagnosis at time of Disposition: Alcohol abuse Abdominal pain Qualifiers: Abdominal location: generalized Qualified Code(s): R10.84 - Generalized abdominal pain Headache Qualifiers: Headache type: unspecified Headache chronicity pattern: unspecified pattern Intractability: not intractable Qualified Code(s): R51 - Headache Chest pain Qualifiers: Chest pain type: unspecified Qualified Code(s): R07.9 - Chest pain, unspecified - Referrals Referrals: Silver Mejia MD [Primary Care Provider] - - Patient Instructions - Post Discharge Activity
--- NOTE | 2018-04-16 05:44 | PDOC ---
Attending Attestation - Resident Resident Name: Josephine Petit - ED Attending Attestation I have performed the following: I have examined & evaluated the patient, The case was reviewed & discussed with the resident, I agree w/resident's findings & plan - HPI HPI: 04/16/18 06:14 40-year-old male with admitted daily alcohol use now complaining of upper abdominal pain radiating into the chest, patient describes it as a burning and 5 -6 out of 10 in intensity. He denies back pain or associated trauma. He does have some mild headache as well. He has had vomiting. - Physicial Exam PE: 04/16/18 06:15 Agree with resident's exam 04/16/18 06:15 - Medical Decision Making 04/16/18 06:16 48-year-old male with history of alcohol abuse now with abdominal pain and vomiting Labs EKG and CT scans of the head chest and abdomen have been ordered Case signed out to oncoming team for reevaluation and final disposition
[2018-04-16] MEDS ORDERED: ONDANSETRON 4 MG/2 ML VIAL IVPB ONE (05:49)
[2018-04-16] MEDS ORDERED: FAMOTIDINE 20 MG/50 ML IVPB 20 MG/50 ML MG IVPB ONE ×2 (05:49→05:57)
[2018-04-16] MEDS ORDERED: LACTATED RINGERS SOLUTION 1000 ML INFUS.BAG IV ONE (05:49)
[2018-04-16] MEDS ORDERED: ACETAMINOPHEN INJECTION 100 ML IVPB ONE (05:57)
[2018-04-16] MEDS ORDERED: ONDANSETRON 4 MG/2 ML VIAL ONE (05:57)
[2018-04-16 06:13] LABS: BASO % 0.9 % (0-2.0); EOS % 1.6 % (0-4.5); HEMATOCRIT 36.1 % (35.4-49); HEMOGLOBIN 12.8 GM/dL (11.7-16.9); LYMPH % 39.4 % (8-40); MCH 27.4 pg (25.7-33.7); MCHC 35.4 g/dl (32.0-35.9); MEAN CELL VOLUME 77.5 fl (80-96); MEAN PLT VOLUME 7.4 fl (7.5-11.1); MONO % 10.2 % (3.8-10.2); NEUT % 47.9 % (42.8-82.8); PLATELET COUNT 300 K/MM3 (134-434); RBC 4.66 M/mm3 (4.00-5.60); WHITE BLOOD COUNT 6.3 K/mm3 (4.0-10.0)
[2018-04-16] MEDS ORDERED: ACETAMINOPHEN 1000 MG/100 ML VIAL (NON FORMULARY) IVPB ONE ×2 (06:21→11:49)
[2018-04-16 06:40] LABS: ALBUMIN 3.8 g/dl (3.4-5.0); ALK PHOS 139 U/L (45-117); ANION GAP 19 MMOL/L (8-16); BILIRUBIN,TOTAL 0.8 mg/dL (0.2-1); BLOOD UREA NITROGEN 24 mg/dL (7-18); CALCIUM 8.9 mg/dL (8.5-10.1); CHLORIDE 80 mmol/L (98-107); CO2 28 mmol/L (21-32); CREATININE 1.9 mg/dL (0.55-1.3); GLUCOSE,RANDOM 149 mg/dL (74-106); LIPASE 245 U/L (73-393); POTASSIUM 3.5 mmol/L (3.5-5.1); SGOT/AST 74 U/L (15-37); SGPT/ALT 54 U/L (13-61); SODIUM 126 mmol/L (136-145); TOT PROT 8.4 g/dl (6.4-8.2)
[2018-04-16] MEDS ORDERED: SODIUM CHLORIDE 1,000 ML IV STA (06:46)
--- NOTE | 2018-04-16 07:11 | PDOC ---
*Physical Exam - Vital Signs Last Vital Signs Temp Pulse Resp BP Pulse Ox 99.1 F 88 22 H 139/86 96 04/16/18 06:14 04/16/18 05:42 04/16/18 05:42 04/16/18 05:42 04/16/18 05:42 - Physical Exam Comments: 04/16/18 07:51 GENERAL: Awake, alert, and fully oriented, in no acute distress HEAD: No signs of trauma, normocephalic, atraumatic EYES: PERRLA, EOMI, sclera ictericus, conjunctiva clear ENT: oropharynx clear without exudates. Moist mucosa. mild tongue fasiculations NECK: Normal ROM, supple LUNGS: No distress, speaks full sentences, clear to auscultation bilaterally HEART: Regular rate and rhythm, normal S1 and S2, no murmurs, rubs or gallops, peripheral pulses normal and equal bilaterally. ABDOMEN: Soft, mild tenderness to palpation, normoactive bowel sounds. No guarding, no rebound. EXTREMITIES : Normal inspection, Normal range of motion, no edema. No clubbing or cyanosis, mild hand tremor NEUROLOGICAL: Cranial nerves II through XII grossly intact. Normal speech, no focal sensorimotor deficits SKIN: Warm, Dry, normal turgor, no rashes or lesions noted ED Treatment Course - LABORATORY CBC & Chemistry Diagram: 04/16/18 05:57 04/16/18 05:57 - ADDITIONAL ORDERS Additional order review: Laboratory Results 04/16/18 04/16/18 04/16/18 05:57 05:57 05:57 Sodium 126 L Potassium 3.5 Chloride 80 L Carbon Dioxide 28 Anion Gap 19 H BUN 24 H Creatinine 1.9 H Creat Clearance w eGFR 38.02 Random Glucose 149 H Calcium 8.9 Total Bilirubin 0.8 AST 74 H ALT 54 Alkaline Phosphatase 139 H Troponin I 1.08 H* Total Protein 8.4 H Albumin 3.8 Lipase Cancelled 245 Alcohol, Quantitative < 3.0 04/16/18 05:57 RBC 4.66 MCV 77.5 L MCHC 35.4 RDW 15.0 MPV 7.4 L Neutrophils % 47.9 Lymphocytes % 39.4 D Monocytes % 10.2 Eosinophils % 1.6 D Basophils % 0.9 - Medications Given in the ED: ED Medications Discontinued Medications Generic Name Dose Route Start Last Admin Trade Name Freq PRN Reason Stop Dose Admin Acetaminophen 1,000 mg 04/16/18 06:21 04/16/18 06:22 Ofirmev Injection - IVPB 04/16/18 06:22 1,000 mg ONCE ONE Administration Famotidine/Sodium Chloride 20 mg in 50 mls @ 100 mls/hr 04/16/18 05:49 06:08 Pepcid 20 Mg Premixed Ivpb - IVPB 04/16/18 06:18 100 mls/hr ONCE ONE Administration Lactated Ringer's 1,000 ml 04/16/18 05:49 04/16/18 06:09 Lactated Ringers Solution IV 04/16/18 05:50 1,000 ml NOW ONE Administration Ondansetron HCl 4 mg 04/16/18 05:49 04/16/18 06:08 Zofran Injection IVPB 04/16/18 05:50 4 mg ONCE ONE Administration Medical Decision Making - Medical Decision Making 04/16/18 07:10 Patient signed out by resident Dr. Petit In short this patient is a 48 year old man with a history of DDM, HTN, Alcohol Dependence presenting to ED with complaints of diffuse abdominal pain x1-2 days. Found to have hyponatremia, some MOISES, elevated troponin without prominent EKG changes and negative blood alcohol. Pending CT reads, guaic, repeat EKG. Patient has recieved Tylenol, pepcid, maalox and zofran ED Course: Repeat EKG: normal sinus rhythm HR 92, narrow QRS, ST and T wave segments and morphology normal. 04/16/18 07:56 Urine electrolytes ordered Concern for possible alcohol withdrawal Librium 50mg 04/16/18 14:27 Dr. Bahena cardiology contacted. Recommends Lovenox Inpatient team made aware of recs *DC/Admit/Observation/Transfer Diagnosis at time of Disposition: Alcohol abuse, Hyponatremia, Elevated troponin, NSTEMI (non-ST elevated myocardial infarction), Alcohol withdrawal - Discharge Dispostion Condition at time of disposition: Stable Decision to Admit order: Yes - Referrals - Patient Instructions - Post Discharge Activity
[2018-04-16] MEDS ORDERED: chlordiazePOXIDE HCL 25 MG CAPSULE PO ONE (07:55)
[2018-04-16] MEDS ORDERED: chlordiazePOXIDE HCL 25 MG CAPSULE ONE (09:05)
[2018-04-16 10:44] LABS: URINE CREATININE 35.6 mg/dL (20-320)
[2018-04-16 11:23] LABS: URINE APPEARANCE CLEAR; URINE BILIRUBIN NEGATIVE (<2.0 mg/dL); URINE COLOR STRAW; URINE GLUCOSE (UA) NEGATIVE (NEGATIVE); URINE KETONE 1+ (NEGATIVE); URINE LEUK ESTERASE NEGATIVE (NEGATIVE); URINE NITRITE NEGATIVE (NEGATIVE); URINE PROTEIN NEGATIVE (NEGATIVE); URINE UROBILINOGEN NEGATIVE mg/dL (0.2-1.0)
[2018-04-16] MEDS ORDERED: SODIUM CHLORIDE 1,000 ML IV SCH (11:30)
[2018-04-16] MEDS ORDERED: ASPIRIN 325 MG ENTERIC COATED TABLET (FP) PO ONE (12:13)
--- NOTE | 2018-04-16 12:15 | EKG ---
Test Reason : Blood Pressure : / mmHG Vent. Rate : 092 BPM Atrial Rate : 092 BPM P-R Int : 152 ms QRS Dur : 100 ms QT Int : 376 ms P-R-T Axes : 051 010 040 degrees QTc Int : 464 ms NORMAL SINUS RHYTHM INFERIOR INFARCT , AGE UNDETERMINED ABNORMAL ECG Confirmed by MD MELVI, JACK ([id number]) on 04/16/2018 12:15:11 PM Referred By: Confirmed By:JACK OGDEN MD
--- NOTE | 2018-04-16 12:15 | EKG ---
Test Reason : Blood Pressure : / mmHG Vent. Rate : 091 BPM Atrial Rate : 091 BPM P-R Int : 158 ms QRS Dur : 100 ms QT Int : 376 ms P-R-T Axes : 060 004 015 degrees QTc Int : 462 ms POOR DATA QUALITY, INTERPRETATION MAY BE ADVERSELY AFFECTED NORMAL SINUS RHYTHM NORMAL ECG Confirmed by MD MELVI, JACK ([id number]) on 04/16/2018 12:15:28 PM Referred By: Confirmed By:JACK OGDEN MD
--- NOTE | 2018-04-16 12:16 | HP ---
CHIEF COMPLAINT: " Abdominal pain, vomiting, chest pain" PCP: Dr. Stephen HISTORY OF PRESENT ILLNESS: Patient is a 48 year old male presented to the ED with the chief complaint of " Abdominal pain, nausea and vomiting x 2 days". As per the patient, he was binge drinking 2 days ago, had 1/2 bottle of vodka. Then he started having abdominal pain x 2 days, located diffusely, burning in sensation, radiating towards the left flank associated with nausea. Yesterday, he bought a chicken soup from a store then started having NBNB vomiting about 5-6 times which prompted him to come to the ED for further evaluation and treatment. Patient also reports to have chest pain, located in the sternal area, burning in nature, 4/10 in intensity ,non radiating. Associated with shortness of breath and palpitations. Mentions he has headache x 1 day and dizziness. He states that he gets these symptoms when he binge drinks and now wants to quit drinking, wanting for inpatient detox for alcohol. Denies fever, chills, rigors or sweating. No diarrhoea. No urinary symptoms. ER course was notable for: (1) Afebrile, Trops 1.08, Na 126, GBUN 24, creatinine 1.9, urinary protein 14 (2) EKG: NSR, no significant ST or T wave changes (3) 1 L of NS and LR, Head CT/Chest CT negative for any acute pathology Recent Travel: None PAST MEDICAL HISTORY: HTN, HLD, DM, Alcohol dependence. PAST SURGICAL HISTORY: None reported Social History: Lives with his at home. Smoking: Smokes 2-3 cigs/day for 20 yrs Alcohol: Binge drinking over the weekends, about 10 beers sometimes 1/2 a bottle of vodka. Doesn't get withdrawals Drugs: Denies Family History: Non contributory Allergies No Known Allergies Allergy (Verified 04/16/18 05:49) HOME MEDICATIONS: Home Medications Medication Instructions Recorded Insulin (Levemir) [Levemir Vial] 10 units SQ DAILY #100 units 09/24/17 Insulin Sliding Scale [Novolog See Protocol SQ ACHS #1 vial 09/24/17 Vial Sliding Scale -] Lancets 1 each ACHS #1 box 09/24/17 Miscellaneous Medical Supply 1 each SQ ASDIR #1 kit 09/24/17 [Glucometer Device] Miscellaneous Medical Supply 1 each SQ ASDIR #1 box 09/24/17 [Glucometer Test Strips #100] Naph,Mb-Db/K pH,Mbdb [PHOS-NaK 1 packet PO TID #6 pow 09/24/17 PACKET -] REVIEW OF SYSTEMS CONSTITUTIONAL: Absent: fever, chills, diaphoresis, generalized weakness, malaise, loss of appetite, weight change HEENT: Absent: rhinorrhea, nasal congestion, throat pain, throat swelling, difficulty swallowing, mouth swelling, ear pain, eye pain, visual changes CARDIOVASCULAR: Present: : chest pain,palpitations, shortness of breath Absent syncope, irregular heart rate, lightheadedness, peripheral edema RESPIRATORY: Absent: cough, shortness of breath, dyspnea with exertion, orthopnea, wheezing, stridor, hemoptysis GASTROINTESTINAL: Present: abdominal pain, abdominal distension, nausea, vomiting Absent: diarrhea, constipation, melena, hematochezia GENITOURINARY: Absent: dysuria, frequency, urgency, hesitancy, hematuria, flank pain, genital pain MUSCULOSKELETAL: Absent: myalgia, arthralgia, joint swelling, back pain, neck pain SKIN: Absent: rash, itching, pallor HEMATOLOGIC/IMMUNOLOGIC: Absent: easy bleeding, easy bruising, lymphadenopathy, frequent infections ENDOCRINE: Absent: unexplained weight gain, unexplained weight loss, heat intolerance, cold intolerance NEUROLOGIC: Absent: headache, focal weakness or paresthesias, dizziness, unsteady gait, seizure, mental status changes, bladder or bowel incontinence PSYCHIATRIC: Absent: anxiety, depression, suicidal or homicidal ideation, hallucinations. PHYSICAL EXAMINATION Vital Signs - 24 hr 04/16/18 04/16/18 04/16/18 05:42 06:14 07:20 Temperature 96.8 F L 99.1 F Pulse Rate 88 Pulse Rate [ 92 H Apical] Respiratory 22 H 20 Rate Blood Pressure 139/86 Blood Pressure 134/94 [Left Arm] O2 Sat by Pulse 96 100 Oximetry (%) 04/16/18 11:45 Temperature 98.9 F Pulse Rate Pulse Rate [ 89 Apical] Respiratory 12 Rate Blood Pressure Blood Pressure 134/93 [Left Arm] O2 Sat by Pulse 100 Oximetry (%) GENERAL: Middle aged male, lying in bed, Awake, alert, and fully oriented, in no acute distress. EYES: EOM intact, no pallor or icterus. EARS, NOSE, THROAT: Ears normal. Moist mucous membranes. NECK: Supple, no JVD. LUNGS: B/L breath sounds equal, no added sounds. HEART: Regular rate and rhythm, normal S1 and S2 without murmur. ABDOMEN: Soft, tenderness diffusely, no organomegaly, BS + UPPER EXTREMITIES: 2+ pulses, warm, well-perfused. No cyanosis. No clubbing. No peripheral edema. LOWER EXTREMITIES: 2+ pulses, warm, well-perfused. No calf tenderness. No peripheral edema. NEUROLOGICAL: No facial droop, power 5/5 in all extremities, sensation intact, Cranial nerves II-XII intact. Normal speech. Gait not observed, no ext tremors. PSYCHIATRIC: Cooperative. Good eye contact. Appropriate mood and affect. SKIN: Warm, dry, normal turgor, no rashes or lesions noted, normal capillary refill. Laboratory Results - last 24 hr 04/16/18 04/16/18 04/16/18 05:57 05:57 05:57 WBC 6.3 RBC 4.66 Hgb 12.8 Hct 36.1 MCV 77.5 L MCH 27.4 MCHC 35.4 RDW 15.0 Plt Count 300 D MPV 7.4 L Absolute Neuts (auto) 3.0 Neutrophils % 47.9 Lymphocytes % 39.4 D Monocytes % 10.2 Eosinophils % 1.6 D Basophils % 0.9 Nucleated RBC % 0 Sodium 126 L Potassium 3.5 Chloride 80 L Carbon Dioxide 28 Anion Gap 19 H BUN 24 H Creatinine 1.9 H Creat Clearance w eGFR 38.02 Random Glucose 149 H Calcium 8.9 Total Bilirubin 0.8 AST 74 H ALT 54 Alkaline Phosphatase 139 H Troponin I Total Protein 8.4 H Albumin 3.8 Lipase 245 Cancelled Urine Color Urine Appearance Urine pH Ur Specific [place] Urine Protein Urine Glucose (UA) Urine Ketones Urine Blood Urine Nitrite Urine Bilirubin Urine Urobilinogen Ur Leukocyte Esterase Urine WBC (Auto) Urine RBC (Auto) Ur Random Sodium Urine Creatinine Stool Occult Blood Alcohol, Quantitative 04/16/18 04/16/18 04/16/18 05:57 07:00 09:09 WBC RBC Hgb Hct MCV MCH MCHC RDW Plt Count MPV Absolute Neuts (auto) Neutrophils % Lymphocytes % Monocytes % Eosinophils % Basophils % Nucleated RBC % Sodium Potassium Chloride Carbon Dioxide Anion Gap BUN Creatinine Creat Clearance w eGFR Random Glucose Calcium Total Bilirubin AST ALT Alkaline Phosphatase Troponin I 1.08 H* Total Protein Albumin Lipase Urine Color Straw Urine Appearance Clear Urine pH 7.0 Ur Specific [place] 1.006 L Urine Protein Negative Urine Glucose (UA) Negative Urine Ketones 1+ H Urine Blood 1+ H Urine Nitrite Negative Urine Bilirubin Negative Urine Urobilinogen Negative Ur Leukocyte Esterase Negative Urine WBC (Auto) <1 Urine RBC (Auto) 1 Ur Random Sodium Urine Creatinine Stool Occult Blood Negative Alcohol, Quantitative < 3.0 04/16/18 04/16/18 04/16/18 09:09 09:09 09:26 WBC RBC Hgb Hct MCV MCH MCHC RDW Plt Count MPV Absolute Neuts (auto) Neutrophils % Lymphocytes % Monocytes % Eosinophils % Basophils % Nucleated RBC % Sodium Potassium Chloride Carbon Dioxide Anion Gap BUN Creatinine Creat Clearance w eGFR Random Glucose Calcium Total Bilirubin AST ALT Alkaline Phosphatase Troponin I 0.88 H* Total Protein Albumin Lipase Urine Color Urine Appearance Urine pH Ur Specific [place] Urine Protein 14 H Urine Glucose (UA) Urine Ketones Urine Blood Urine Nitrite Urine Bilirubin Urine Urobilinogen Ur Leukocyte Esterase Urine WBC (Auto) Urine RBC (Auto) Ur Random Sodium 36 L Urine Creatinine 35.6 Stool Occult Blood Alcohol, Quantitative Head CT 04/16/18: No evidence of acute intracranial hemorrhage, edema, midline shift, mass effect, or skull fracture. No CT evidence of acute territorial infarction. Chest CT 04/16/18: 1. Right lower lobe granuloma with calcified right hilar lymph node consistent with prior granulomatous disease. 2. Otherwise normal CT scan of the chest with no evidence of acute pathology. 3. Small hiatal hernia. 4. Diffuse fatty infiltration of the liver. 5. No acute pathology within the abdomen or pelvis. Please see above discussion. Abdomen/Pelvis CT: 1. Right lower lobe granuloma with calcified right hilar lymph node consistent with prior granulomatous disease. 2. Otherwise normal CT scan of the chest with no evidence of acute pathology. 3. Small hiatal hernia. 4. Diffuse fatty infiltration of the liver. 5. No acute pathology within the abdomen or pelvis. Please see above discussion. ASSESSMENT/PLAN: Patient is a 48 year old male with past medical history of HTN, HLD, DM, Alcohol dependence. presented to the ED with the chief complaint of " Abdominal pain, nausea and vomiting x 2 days". # Chest pain with elevated troponin NSTEMI vs demand ischemia c/o chest pain, burning sensation, associated with shortness of breath and palpitations EKG: NSR, no significant ST or T wave changes. Troponin 1.08---> 0.08--> @ 3pm Chest CT done without contrast: Old RLL granuloma. Cannot rule out PE. Will order an ECHO to see right heart strain. No prior echo to compare. Admit to Tele/Continuous cardiac monitoring Will give Aspirin 325mg and start Aspirin 81 mg daily. Cardiology consult requested. # Abdominal pain, nausea, vomiting-could be viral gastroenteritis vs gastritis CT Abdomen/Pelvis: No acute pathology Could be from binge drinking as well. Was given IV hydration 2 L in the ED, continue banana bag IV Protonix 40mg daily # Alcohol abuse CIWA score 2. Was given one dose of librium in the ED. No signs of withdrawal at this time. Will watch for signs of alcohol withdrawal and start on librium protocol if needed. Call placed to Dr. Escobar for alcohol detox (left a voice message in her cell phone). Patient is interested in inpatient detox. Folic acid 1mg daily 1 banana bag, multivitamins. Mg, Phos ordered stat. Replete if needed # CKD-stable BUN/Creatinine 24/1.9 (last admission in 2018 it was around 2.2, 2016- creatinine was 1). Proteinuria, on Enalapril- needs outpatient renal follow up. # Hyponatremia likely secondary to alcohol intake Na 126, has been hydrated. Repeat in AM. # DM A1c ordered. Continue ISS. Finger stick BGM. Watch for hypoglycemic episodes # HTN Continue Enalapril. # FEN 1 banana bag then encourage PO intake Electrolytes:Na 126, mg, phos pending Diabetic diet # Prophylaxis For DVT: ON Heparin 5000 IU sq TID For GI: IV PRotonix 40 mg Daily # Code Status: Full Code # Dispo: Admit to Tele/Continuous cardiac monitoring. Duration of stay at least 2 days. Illness, Investigation and plan of care explained to the patient. He verbalized understanding. Case discussed with Dr. Gil. Visit type - Emergency Visit Emergency Visit: Yes ED Registration Date: 04/16/18 Care time: The patient presented to the Emergency Department on the above date and was hospitalized for further evaluation of their emergent condition. - New Patient This patient is new to me today: Yes Date on this admission: 04/17/18 - Critical Care Critical Care patient: No
[2018-04-16] MEDS ORDERED: FOLIC ACID INJECTION - 1 MG, THIAMINE HCL 100 MG, MULTIVIT INJECTION ADULT 10 ML in SOD... IVPB ONE ×2 (12:19→12:20)
[2018-04-16 12:58] LABS: MAGNESIUM 2.1 mg/dL (1.8-2.4); PHOSPHOROUS 4.1 mg/dL (2.5-4.9)
[2018-04-16] MEDS ORDERED: ATORVASTATIN CA 10 MG TABLET (FP) ONE (13:24)
[2018-04-16] MEDS: FOLIC ACID 1 MG TABLET (FP) PO SCH (13:40)
[2018-04-16] MEDS: PANTOPRAZOLE SODIUM 40 MG VIAL IVPUSH SCH (13:40)
[2018-04-16] MEDS: ATORVASTATIN CA 10 MG TABLET (FP) PO SCH (13:41)
[2018-04-16] MEDS: ENALAPRIL MALEATE 2.5 MG TABLET (FP) PO SCH (13:41)
[2018-04-16] MEDS ORDERED: HEPARIN NA (PORCINE) 5,000 UNITS/ML 1ML VIAL SQ SCH ×2 (14:00→22:00)
--- NOTE | 2018-04-16 15:34 | ECHO ---
Name: SANDRA EDUARDO Exam:Adult Echocardiogram Study Date: 04/16/2018 01:14 PM Age: 48 yrs Reason For Study: LVEF Height: 64 in Weight: 150 lb BSA: 1.7 m2 MMode/2D Measurements & Calculations IVSd: 0.92 cm Ao root diam: 3.2 cm LVIDd: 4.6 cm LA dimension: 3.2 cm LVIDs: 3.2 cm LVPWd: 0.82 cm EDV(Teich): 97.7 ml TAPSE: 2.2 cm ESV(Teich): 40.7 ml Doppler Measurements & Calculations MV E max franck: 41.5 cm/sec Ao V2 max: 106.3 cm/sec MV A max franck: 92.3 cm/sec Ao max P.5 mmHg MV E/A: 0.45 Ao V2 mean: 82.1 cm/sec MV dec time: 0.19 sec Ao mean P.0 mmHg Ao V2 VTI: 18.5 cm LV V1 max P.1 mmHg TR max franck: 173.3 cm/sec LV V1 mean P.00 mmHg TR max P.1 mmHg LV V1 max: 71.9 cm/sec LV V1 mean: 46.8 cm/sec LV V1 VTI: 11.2 cm Med Peak E' Franck: 3.1 cm/sec Med E/e': 13.3 Lat Peak E' Franck: 6.7 cm/sec Lat E/e': 6.2 Procedure A complete two-dimensional transthoracic echocardiogram was performed (2D, M-mode, Doppler and color flow Doppler). The study was technically adequate with some images being suboptimal in quality. Left Ventricle Left ventricular systolic function is normal. Grade I diastolic dysfunction, (abnormal relaxation pat tern). Right Ventricle The right ventricle is severely dilated. The right ventricular systolic function is moderately reduce d. There is apical sparing of the RV function (Garcia's sign) which can be seen in pulmonary embolism. Atria Normal left and right atrial size and function. Mitral Valve The mitral valve is normal in structure and function. Tricuspid Valve The tricuspid valve is normal in structure and function. There is mild tricuspid regurgitation. Aortic Valve The aortic valve is normal in structure and function. Pulmonic Valve The pulmonic valve is not well visualized. Great Vessels The aortic root is normal size. Pericardium/Pleura There is no pericardial effusion. Interpretation Summary There is apical sparing of the RV function (Garcia's sign) which can be seen in pulmonary embolism . The right ventricular systolic function is moderately reduced. Left ventricular systolic function is normal. Rich Bettencourt 04/16/2018 03:34 PM
[2018-04-16] MEDS: INSULIN SLIDING SCALE (NOVOLOG) 1 VIAL SQ SCH ×2 (17:51→22:16)
--- NOTE | 2018-04-16 18:33 | PN ---
[facility] Progress Note (SOAP) Subjective: 48 y.o. male referred for consultation , reports alcohol use binge-drinking on weekends x " many years " , up to 3 bottles of vodka and 1 case of beer , denies withdrawal symptoms, denies blackouts, tremors, or seizures , states in the past used to drink every weekend , now not every weekend due to abdominal discomfort, presented to ED for nausea and vomiting yesterday after eating a can of soup . 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 denies illicits . PMHX : DM , HTN Active Medications Aspirin (Ecotrin -) 81 mg PO DAILY [facility] Atorvastatin Calcium (Lipitor -) 10 mg PO HS [facility] Last Admin: 04/16/18 13:41 Dose: 10 mg Enalapril Maleate (Vasotec -) 2.5 mg PO DAILY [facility] Last Admin: 04/16/18 13:41 Dose: 2.5 mg Folic Acid (Folic Acid -) 1 mg PO DAILY [facility] Last Admin: 04/16/18 13:40 Dose: 1 mg Heparin Sodium (Porcine) (Heparin -) 5,000 unit SQ TID [facility] Folic Acid 1 mg/ Thiamine HCl 100 mg/ Multivitamins/Minerals 10 ml/ Sodium Chloride 1,000 mls @ 100 mls/hr IVPB ONCE ONE Stop: 04/16/18 22:18 Last Admin: 04/16/18 13:40 Dose: 100 mls/hr Insulin Aspart (Novolog Vial Sliding Scale -) 1 vial SQ ACHS [facility]; Protocol Last Admin: 04/16/18 17:51 Dose: Not Given Pantoprazole Sodium (Protonix Iv) 40 mg IVPUSH DAILY [facility] Last Admin: 04/16/18 13:40 Dose: 40 mg Objective: wnwd resting comfortably in bed CBC, BMP 04/16/18 05:57 04/16/18 05:57 Abnormal Lab Results 04/16/18 04/16/18 04/16/18 05:57 05:57 05:57 MCV 77.5 L MPV 7.4 L Sodium 126 L Chloride 80 L Anion Gap 19 H BUN 24 H Creatinine 1.9 H Random Glucose 149 H Hemoglobin A1c % AST 74 H Alkaline Phosphatase 139 H Troponin I 1.08 H* Total Protein 8.4 H Triglycerides Cholesterol Total LDL Cholesterol HDL Cholesterol Ur Specific [place] Urine Protein Urine Ketones Urine Blood Ur Random Sodium 04/16/18 04/16/18 04/16/18 09:09 09:09 09:09 MCV MPV Sodium Chloride Anion Gap BUN Creatinine Random Glucose Hemoglobin A1c % AST Alkaline Phosphatase Troponin I Total Protein Triglycerides Cholesterol Total LDL Cholesterol HDL Cholesterol Ur Specific [place] 1.006 L Urine Protein 14 H Urine Ketones 1+ H Urine Blood 1+ H Ur Random Sodium 36 L 04/16/18 04/16/18 04/16/18 09:26 14:20 14:20 MCV MPV Sodium Chloride Anion Gap BUN Creatinine Random Glucose Hemoglobin A1c % 9.6 H AST Alkaline Phosphatase Troponin I 0.88 H* 0.74 H* Total Protein Triglycerides 208 H Cholesterol 243 H Total LDL Cholesterol 150 H HDL Cholesterol 61 H Ur Specific [place] Urine Protein Urine Ketones Urine Blood Ur Random Sodium Assessment: Alcohol dependence Plan: prn Valium patient is interested in outpatient program for aftercare , suggest director of social services evaluation for referral to program that has late evening hours . Discussed with patient , verbalizes understanding and agreement w/ POC .
[2018-04-16] MEDS ORDERED: diazePAM 5 MG TABLET PO PRN (18:40)
[2018-04-16] MEDS ORDERED: HEPARIN NA (PORCINE) 5,000 UNITS/ML 1ML VIAL IVPUSH PRN ×2 (19:17)
[2018-04-16] MEDS ORDERED: HEPARIN - 25,000 UNIT in SODIUM CHLORIDE 495 ML IV SCH (19:30)
--- NOTE | 2018-04-16 19:34 | PN ---
Teaching Attending Note Name of Resident: Nancy Reyes ATTENDING PHYSICIAN STATEMENT I saw and evaluated the patient. I reviewed the resident's note and discussed the case with the resident. I agree with the resident's findings and plan as documented. SUBJECTIVE: Still complains of some abdominal and epigastric/substernal chest pain OBJECTIVE: Afebrile, Hemodynamically Stable. Last Vital Signs Temp Pulse Resp BP Pulse Ox 98.1 F 76 18 110/70 98 04/16/18 17:53 04/16/18 17:53 04/16/18 17:53 04/16/18 17:53 04/16/18 17:53 HEENT- Atraumatic, Normocephalic Heart - S1, S2, RRR Lungs - clear to auscultation Abdomen - Soft, mild generalized tenderness. Bowel Sounds normal. Extremities - no edema, no calf swelling/tenderness Neuro - AAO x 3. No tremor. Tone//Power normal all 4 extremities. Laboratory Results - last 24 hr 04/16/18 04/16/18 04/16/18 05:57 05:57 05:57 WBC 6.3 RBC 4.66 Hgb 12.8 Hct 36.1 MCV 77.5 L MCH 27.4 MCHC 35.4 RDW 15.0 Plt Count 300 D MPV 7.4 L Absolute Neuts (auto) 3.0 Neutrophils % 47.9 Lymphocytes % 39.4 D Monocytes % 10.2 Eosinophils % 1.6 D Basophils % 0.9 Nucleated RBC % 0 Sodium 126 L Potassium 3.5 Chloride 80 L Carbon Dioxide 28 Anion Gap 19 H BUN 24 H Creatinine 1.9 H Creat Clearance w eGFR 38.02 POC Glucometer Random Glucose 149 H Hemoglobin A1c % Calcium 8.9 Phosphorus 4.1 Magnesium 2.1 Total Bilirubin 0.8 AST 74 H ALT 54 Alkaline Phosphatase 139 H Troponin I Total Protein 8.4 H Albumin 3.8 Triglycerides Cholesterol Total LDL Cholesterol HDL Cholesterol Lipase 245 Cancelled Urine Color Urine Appearance Urine pH Ur Specific [place] Urine Protein Urine Glucose (UA) Urine Ketones Urine Blood Urine Nitrite Urine Bilirubin Urine Urobilinogen Ur Leukocyte Esterase Urine WBC (Auto) Urine RBC (Auto) Ur Random Sodium Urine Creatinine Stool Occult Blood Alcohol, Quantitative 04/16/18 04/16/18 04/16/18 05:57 07:00 09:09 WBC RBC Hgb Hct MCV MCH MCHC RDW Plt Count MPV Absolute Neuts (auto) Neutrophils % Lymphocytes % Monocytes % Eosinophils % Basophils % Nucleated RBC % Sodium Potassium Chloride Carbon Dioxide Anion Gap BUN Creatinine Creat Clearance w eGFR POC Glucometer Random Glucose Hemoglobin A1c % Calcium Phosphorus Magnesium Total Bilirubin AST ALT Alkaline Phosphatase Troponin I 1.08 H* Total Protein Albumin Triglycerides Cholesterol Total LDL Cholesterol HDL Cholesterol Lipase Urine Color Straw Urine Appearance Clear Urine pH 7.0 Ur Specific [place] 1.006 L Urine Protein Negative Urine Glucose (UA) Negative Urine Ketones 1+ H Urine Blood 1+ H Urine Nitrite Negative Urine Bilirubin Negative Urine Urobilinogen Negative Ur Leukocyte Esterase Negative Urine WBC (Auto) <1 Urine RBC (Auto) 1 Ur Random Sodium Urine Creatinine Stool Occult Blood Negative Alcohol, Quantitative < 3.0 04/16/18 04/16/18 04/16/18 09:09 09:09 09:26 WBC RBC Hgb Hct MCV MCH MCHC RDW Plt Count MPV Absolute Neuts (auto) Neutrophils % Lymphocytes % Monocytes % Eosinophils % Basophils % Nucleated RBC % Sodium Potassium Chloride Carbon Dioxide Anion Gap BUN Creatinine Creat Clearance w eGFR POC Glucometer Random Glucose Hemoglobin A1c % Calcium Phosphorus Magnesium Total Bilirubin AST ALT Alkaline Phosphatase Troponin I 0.88 H* Total Protein Albumin Triglycerides Cholesterol Total LDL Cholesterol HDL Cholesterol Lipase Urine Color Urine Appearance Urine pH Ur Specific [place] Urine Protein 14 H Urine Glucose (UA) Urine Ketones Urine Blood Urine Nitrite Urine Bilirubin Urine Urobilinogen Ur Leukocyte Esterase Urine WBC (Auto) Urine RBC (Auto) Ur Random Sodium 36 L Urine Creatinine 35.6 Stool Occult Blood Alcohol, Quantitative 04/16/18 04/16/18 04/16/18 14:20 14:20 17:41 WBC RBC Hgb Hct MCV MCH MCHC RDW Plt Count MPV Absolute Neuts (auto) Neutrophils % Lymphocytes % Monocytes % Eosinophils % Basophils % Nucleated RBC % Sodium Potassium Chloride Carbon Dioxide Anion Gap BUN Creatinine Creat Clearance w eGFR POC Glucometer 152.26165 Random Glucose Hemoglobin A1c % 9.6 H Calcium Phosphorus Magnesium Total Bilirubin AST ALT Alkaline Phosphatase Troponin I 0.74 H* Total Protein Albumin Triglycerides 208 H Cholesterol 243 H Total LDL Cholesterol 150 H HDL Cholesterol 61 H Lipase Urine Color Urine Appearance Urine pH Ur Specific [place] Urine Protein Urine Glucose (UA) Urine Ketones Urine Blood Urine Nitrite Urine Bilirubin Urine Urobilinogen Ur Leukocyte Esterase Urine WBC (Auto) Urine RBC (Auto) Ur Random Sodium Urine Creatinine Stool Occult Blood Alcohol, Quantitative Current Medications Generic Name Dose Route Start Last Admin Trade Name Freq PRN Reason Stop Dose Admin Aspirin 81 mg 04/17/18 10:00 Ecotrin - PO DAILY [facility] Atorvastatin Calcium 10 mg 04/16/18 13:15 04/16/18 13:41 Lipitor - PO 10 mg HS [facility] Administration Diazepam 5 mg 04/16/18 18:40 Valium - PO 04/19/18 18:39 Q4H PRN WITHDRAWAL(CONT SUBST) Enalapril Maleate 2.5 mg 04/16/18 12:45 04/16/18 13:41 Vasotec - PO 2.5 mg DAILY [facility] Administration Folic Acid 1 mg 04/16/18 12:45 04/16/18 13:40 Folic Acid - PO 1 mg DAILY [facility] Administration Heparin Sodium (Porcine) 1,000 unit 04/16/18 19:17 Heparin - IVPUSH PRN PRN Heparin Heparin Sodium (Porcine) 5,000 unit 04/16/18 19:17 Heparin - IVPUSH PRN PRN Heparin Folic Acid 1 mg/ Thiamine HCl 1,000 mls @ 100 mls/hr 04/16/18 12:20 04/16/18 13:40 100 mg/ Multivitamins/Minerals IVPB 04/16/18 22:18 100 mls/hr 10 ml/ Sodium Chloride ONCE ONE Administration Heparin Sodium (Porcine) 25, 500 mls @ 16 mls/hr 04/16/18 19:30 000 unit/ Sodium Chloride IV TITR [facility] Protocol 800 UNIT/HR Insulin Aspart 1 vial 04/16/18 16:30 04/16/18 17:51 Novolog Vial Sliding Scale - SQ Not Given ACHS [facility] Protocol Pantoprazole Sodium 40 mg 04/16/18 12:15 04/16/18 13:40 Protonix Iv IVPUSH 40 mg DAILY [facility] Administration ASSESSMENT AND PLAN: 48 year old male with HTN, HLD, DM 2, Alcohol excess, presented with complaints of chest (retrosternal, associated SOB and palps) and diffuse abdominal pain, nausea, vomiting (non-bloody) for the past 2 days after a binging drink this weekend. He denies any hematemesis, melena, hematochezia. No fever/chills. 1. Atypical Chest Pain - NSTEMI vs PE ECG - NSR, no acute changes Troponin elevated to max 1.08, trending down. CT Chest - no acute findings, old RLL granuloma Echo - apical sparing of RV function seen in PE Placed on Heparin drip and NM lung ventilation/perfusion scan requested. Loaded with Aspirin in ED. Telemonitoring. Cardiology consulted 2. Non-specific Abdominal Pain, likely Gastritis sec to Alcohol drinking binge. CT Abdomen/Pelvis: No acute pathology, fatty liver, small hiatal hernia IV Protonix and monitor symptoms. 3. History of Alcohol Abuse Reports binge drinking for 3 days every weekend. Patient was given one dose of Librium in ED No evidence of alcohol withdrawal currently - if he does withdraw, will initiate Valium prn as per protocol. Banana Bag Daily MVI, Thiamine, Folate Addiction Consult placed. Electrolytes ok. 4. CKD 3 - Stable. 5. DM 2 with Proteinuria On Levemir and s/scale at home Continue sliding scale. On SARAH-I 6. Hyponatremia likely secondary to alcohol excess Na 126. Will monitor. 7. HTN - Continue Enalapril. 8. Mild elevation in AST Likely sec to Alcohol excess. Continue Statin for now. DVT Px - Started on Heparin drip.
[2018-04-16] MEDS ORDERED: HEPARIN INFUSION - 25,000 UNITS/500 ML INFUS.BAG IVPB ONE (20:19)
[2018-04-16] MEDS ORDERED: HEPARIN NA (PORCINE) 5,000 UNITS/ML 1ML VIAL ONE (20:19)
[2018-04-16 21:28] LABS: INR 0.96 (0.83-1.09); PROTHROMBIN TIME (PATIENT) 11.3 SEC (9.7-13.0)
[2018-04-16 21:31] LABS: ACTIVATED PTT 31.5 SECONDS (25.2-36.5)
[2018-04-16 23:26] LABS: COCAINE, UR NEGATIVE ng/ml (CUTOFF=300); METHADONE, UR NEGATIVE ng/ml (CUTOFF=300); OPIATES, URI NEGATIVE ng/ml (CUTOFF=300); PHENCYCLIDINE,URINE NEGATIVE ng/ml (CUTOFF=25); URINE AMPHETAMINES NEGATIVE ng/ml (CUTOFF=500); URINE BARBITURATES NEGATIVE ng/ml (CUTOFF=200)
[2018-04-17 00:35] LABS: URINE BENZODIAZEPINES NEGATIVE ng/ml (CUTOFF=200)
[2018-04-17 01:35] VITALS: BMI 24.8
[2018-04-17] MEDS: INSULIN SLIDING SCALE (NOVOLOG) 1 VIAL SQ SCH ×4 (06:22→21:23)
[2018-04-17 06:40] LABS: BASO % 0.5 % (0-2.0); EOS % 2.9 % (0-4.5); HEMATOCRIT 32.4 % (35.4-49); LYMPH % 39.7 % (8-40); MCH 27.1 pg (25.7-33.7); MEAN CELL VOLUME 79.8 fl (80-96); MEAN PLT VOLUME 7.8 fl (7.5-11.1); MONO % 6.3 % (3.8-10.2); NEUT % 50.6 % (42.8-82.8); PLATELET COUNT 235 K/MM3 (134-434); RBC 4.06 M/mm3 (4.00-5.60); WHITE BLOOD COUNT 4.5 K/mm3 (4.0-10.0)
[2018-04-17 07:32] LABS: ALBUMIN 2.9 g/dl (3.4-5.0); ALK PHOS 101 U/L (45-117); ANION GAP 10 MMOL/L (8-16); BILIRUBIN,TOTAL 0.6 mg/dL (0.2-1); BLOOD UREA NITROGEN 20 mg/dL (7-18); CALCIUM 8.2 mg/dL (8.5-10.1); CHLORIDE 100 mmol/L (98-107); CO2 27 mmol/L (21-32); CREATININE 1.3 mg/dL (0.55-1.3); GLUCOSE,RANDOM 133 mg/dL (74-106); MAGNESIUM 1.6 mg/dL (1.8-2.4); PHOSPHOROUS 2.8 mg/dL (2.5-4.9); POTASSIUM 3.8 mmol/L (3.5-5.1); SGOT/AST 36 U/L (15-37); SGPT/ALT 36 U/L (13-61); SODIUM 137 mmol/L (136-145); TOT PROT 6.4 g/dl (6.4-8.2)
[2018-04-17] MEDS ORDERED: MAGNESIUM SULF 50% (8.12 MEQ/2 ML-1 GM VIAL) IVPB ONE (09:15)
[2018-04-17] MEDS: ENALAPRIL MALEATE 2.5 MG TABLET (FP) PO SCH (10:39)
[2018-04-17] MEDS: FOLIC ACID 1 MG TABLET (FP) PO SCH (10:39)
[2018-04-17] MEDS: ASPIRIN COATED 81 MG TABLET.EC PO SCH (10:40)
[2018-04-17] MEDS: PANTOPRAZOLE SODIUM 40 MG VIAL IVPUSH SCH ×2 (10:40→11:11)
[2018-04-17] MEDS ORDERED: SODIUM CHLORIDE 500 ML IV STA (10:53)
--- NOTE | 2018-04-17 12:17 | CON.CARD ---
Consult Consult Specialty:: Cardiology Referred by:: Hospitalist Medicine Reason for Consultation:: Elevated troponins - History of Present Illness Chief Complaint: Epigastric and chest pain History of Present Illness: Patient is a 48 year old male presented to the ED with complaint of epigastric abdominal pain, nausea and vomiting x 2 days. As per the patient, he was binge drinking 2 days ago, had 1/2 bottle of vodka. Then he started having abdominal pain x 2 days, located diffusely, burning in sensation, radiating towards the left flank associated with nausea. Yesterday, he bought a chicken soup from a store then started having NBNB vomiting about 5-6 times which prompted him to come to the ED for further evaluation and treatment. Patient also reports to have chest pain, located in the sternal area, burning in nature, 4/10 in intensity ,non radiating associated with shortness of breath and palpitations, headache and dizziness. He states that he gets these symptoms when he binge drinks and now wants to quit drinking, wanting for inpatient detox for alcohol. Denies fever, chills, rigors or sweating. No diarrhoea. No urinary symptoms. Chest CT scan shows thickening of lower 3rd esophagus c/w esophagitis, small- moderate hiatal hernia. Currently reports resolution of abdominal and epigastric /substernal chest pain, eating dinner without problems. - History Source History Provided By: Patient Limitations to Obtaining History: No Limitations - Past Medical History Cardio/Vascular: Yes: HTN Gastrointestinal: Yes: GERD Hepatobiliary: Yes: Hepatitis A Psych: Yes: Other (ETOH addiction) Endocrine: Yes: Diabetes Mellitus - Past Surgical History Past Surgical History: Yes: None - Alcohol/Substance Use Hx Alcohol Use: Yes - Smoking History Smoking history: Current some day smoker Have you smoked in the past 12 months: No Aproximately how many cigarettes per day: 2 Home Medications - Allergies Allergies/Adverse Reactions: Allergies Allergy/AdvReac Type Severity Reaction Status Date / Time No Known Allergies Allergy Verified 04/16/18 05:49 - Home Medications Home Medications: Ambulatory Orders Enalapril Maleate 2.5 mg PO DAILY 04/16/18 Folic Acid 1 mg PO DAILY 04/16/18 Insulin (Levemir) [Levemir Vial] 20 unit SQ HS 04/16/18 Omeprazole 40 mg PO DAILY 04/16/18 Pravastatin Sodium [Pravachol -] 40 mg PO DAILY 04/16/18 Family Disease History - Family Disease History Family Disease History: Diabetes: Mother, Heart Disease: Father Review of Systems - Review of Systems Cardiovascular: reports: Chest Pain Gastrointestinal: reports: Abdominal Pain Vital Signs: Vital Signs Temperature 97.9 F 04/17/18 04:00 Pulse Rate 70 04/17/18 04:00 Respiratory Rate 18 04/17/18 08:41 Blood Pressure 104/56 L 04/17/18 04:00 O2 Sat by Pulse Oximetry (%) 99 04/17/18 08:41 Constitutional: Yes: No Distress, Calm Neck: Yes: Supple Respiratory: Yes: Regular, CTA Bilaterally Gastrointestinal: Yes: Normal Bowel Sounds, Soft Cardiovascular: Yes: Regular Rate and Rhythm JVD: No Carotid Bruit: No Heart Sounds: Yes: S1, S2 Murmur: Yes: Systolic Murmur, Grade 1 Edema: No - Other Data Labs, Other Data: CBC, BMP 04/17/18 05:30 04/17/18 05:30 INR, PTT INR 0.96 (0.83-1.09) 04/16/18 20:36 Troponin, BNP 04/16/18 14:20 Troponin I 0.74 H* Troponin, BNP 04/16/18 14:20 Troponin I 0.74 H* NSR @ 91 Echo: Report Reviewed Imaging - Results Cat Scan: Report Reviewed (No PE, mild conc. thickeneing of lower 3rd esophagus suspicious for esophagitis. s,all-moderate hiatal hernia) Problem List - Problems (1) Alcohol withdrawal Code(s): F10.239 - ALCOHOL DEPENDENCE WITH WITHDRAWAL, UNSPECIFIED Qualifiers: Complication of substance-induced condition: uncomplicated Qualified Code(s ): F10.230 - Alcohol dependence with withdrawal, uncomplicated (2) Elevated troponin Code(s): R74.8 - ABNORMAL LEVELS OF OTHER SERUM ENZYMES (3) Hyponatremia Code(s): E87.1 - HYPO-OSMOLALITY AND HYPONATREMIA (4) Alcohol abuse Code(s): F10.10 - ALCOHOL ABUSE, UNCOMPLICATED (5) Alcohol dependence Code(s): F10.20 - ALCOHOL DEPENDENCE, UNCOMPLICATED (6) Diabetes Code(s): E11.9 - TYPE 2 DIABETES MELLITUS WITHOUT COMPLICATIONS Qualifiers: Diabetes mellitus type: type 2 Diabetes mellitus complication status: with kidney complications Diabetes mellitus complication detail: with nephropathy (7) Hypertension Code(s): I10 - ESSENTIAL (PRIMARY) HYPERTENSION Qualifiers: Hypertension type: essential hypertension Qualified Code(s): I10 - Essential (primary) hypertension (8) Hyperlipidemia Code(s): E78.5 - HYPERLIPIDEMIA, UNSPECIFIED Assessment/Plan 04/16/2018 Echo: Apical sparing of RV c/w Garcia sign with moderate decreased RV fxn, normal LV fxn 1. Atypical chest pain ruled out for PE, suspect esophagitis 2. Demand ischemia with RV dysfunction 3. ETOH dependence with ETOH hepatitis 4. HTN 5. Hyperlipidemia 6. Type 2 DM 7. CKD with proteinuria 8. Hyponatremia P:1. Trops on downward trend, d/c heparin gtt 2. IV protonix, prn Valium 3. Continue vasotex 2.5 qd, Pravachol 40 qd, MVI, outpatient alcohol detox 4. Thank you for consultative opportunity
--- NOTE | 2018-04-17 13:56 | PN ---
Teaching Attending Note Name of Resident: Andrews Reese ATTENDING PHYSICIAN STATEMENT I saw and evaluated the patient. I reviewed the resident's note and discussed the case with the resident. I agree with the resident's findings and plan as documented. SUBJECTIVE: Reports resolution of abdominal and epigastric/substernal chest pain OBJECTIVE: Afebrile, Hemodynamically Stable. Last Vital Signs Temp Pulse Resp BP Pulse Ox 97.9 F 70 18 104/56 L 99 04/17/18 04:00 04/17/18 04:00 04/17/18 08:41 04/17/18 04:00 04/17/18 08:41 HEENT- Atraumatic, Normocephalic Heart - S1, S2, RRR Lungs - clear to auscultation Abdomen - Soft, non-tender. Bowel Sounds normal. Extremities - no edema, no calf swelling/tenderness Neuro - AAO x 3. No tremor. Tone/Power normal all 4 extremities. Laboratory Results - last 24 hr 04/16/18 04/16/18 04/16/18 14:20 14:20 17:41 WBC RBC Hgb Hct MCV MCH MCHC RDW Plt Count MPV Absolute Neuts (auto) Neutrophils % Lymphocytes % Monocytes % Eosinophils % Basophils % Nucleated RBC % PT with INR INR PTT (Actin FS) Sodium Potassium Chloride Carbon Dioxide Anion Gap BUN Creatinine Creat Clearance w eGFR POC Glucometer [phone] Random Glucose Hemoglobin A1c % 9.6 H Calcium Phosphorus Magnesium Total Bilirubin AST ALT Alkaline Phosphatase Troponin I 0.74 H* Total Protein Albumin Triglycerides 208 H Cholesterol 243 H Total LDL Cholesterol 150 H HDL Cholesterol 61 H Opiates Screen Methadone Screen Barbiturate Screen Phencyclidine Screen Ur Amphetamines Screen MDMA (Ecstasy) Screen Benzodiazepines Screen Cocaine Screen U Marijuana (THC) Screen 04/16/18 04/16/18 04/16/18 20:36 21:40 22:21 WBC RBC Hgb Hct MCV MCH MCHC RDW Plt Count MPV Absolute Neuts (auto) Neutrophils % Lymphocytes % Monocytes % Eosinophils % Basophils % Nucleated RBC % PT with INR 11.30 INR 0.96 PTT (Actin FS) 31.5 Sodium Potassium Chloride Carbon Dioxide Anion Gap BUN Creatinine Creat Clearance w eGFR POC Glucometer [phone] Random Glucose Hemoglobin A1c % Calcium Phosphorus Magnesium Total Bilirubin AST ALT Alkaline Phosphatase Troponin I Total Protein Albumin Triglycerides Cholesterol Total LDL Cholesterol HDL Cholesterol Opiates Screen Negative Methadone Screen Negative Barbiturate Screen Negative Phencyclidine Screen Negative Ur Amphetamines Screen Negative MDMA (Ecstasy) Screen Negative Benzodiazepines Screen Negative Cocaine Screen Negative U Marijuana (THC) Screen Negative 04/17/18 04/17/18 04/17/18 03:15 05:30 05:30 WBC 4.5 RBC 4.06 Hgb 11.0 L Hct 32.4 L MCV 79.8 L MCH 27.1 MCHC 34.0 RDW 15.0 Plt Count 235 D MPV 7.8 Absolute Neuts (auto) 2.3 Neutrophils % 50.6 Lymphocytes % 39.7 Monocytes % 6.3 Eosinophils % 2.9 D Basophils % 0.5 Nucleated RBC % 0 PT with INR INR PTT (Actin FS) 68.0 H Sodium 137 Potassium 3.8 Chloride 100 Carbon Dioxide 27 Anion Gap 10 BUN 20 H Creatinine 1.3 Creat Clearance w eGFR 58.92 POC Glucometer Random Glucose 133 H Hemoglobin A1c % Calcium 8.2 L Phosphorus 2.8 Magnesium 1.6 L Total Bilirubin 0.6 AST 36 ALT 36 Alkaline Phosphatase 101 Troponin I Total Protein 6.4 Albumin 2.9 L Triglycerides Cholesterol Total LDL Cholesterol HDL Cholesterol Opiates Screen Methadone Screen Barbiturate Screen Phencyclidine Screen Ur Amphetamines Screen MDMA (Ecstasy) Screen Benzodiazepines Screen Cocaine Screen U Marijuana (THC) Screen 04/17/18 04/17/18 04/17/18 05:30 05:53 11:43 WBC RBC Hgb Hct MCV MCH MCHC RDW Plt Count MPV Absolute Neuts (auto) Neutrophils % Lymphocytes % Monocytes % Eosinophils % Basophils % Nucleated RBC % PT with INR INR PTT (Actin FS) 60.5 H Sodium Potassium Chloride Carbon Dioxide Anion Gap BUN Creatinine Creat Clearance w eGFR POC Glucometer 137 178 Random Glucose Hemoglobin A1c % Calcium Phosphorus Magnesium Total Bilirubin AST ALT Alkaline Phosphatase Troponin I Total Protein Albumin Triglycerides Cholesterol Total LDL Cholesterol HDL Cholesterol Opiates Screen Methadone Screen Barbiturate Screen Phencyclidine Screen Ur Amphetamines Screen MDMA (Ecstasy) Screen Benzodiazepines Screen Cocaine Screen U Marijuana (THC) Screen Current Medications Generic Name Dose Route Start Last Admin Trade Name Freq PRN Reason Stop Dose Admin Aspirin 81 mg 04/17/18 10:00 04/17/18 10:40 Ecotrin - PO 81 mg DAILY BURAK Administration Atorvastatin Calcium 10 mg 04/16/18 13:15 04/16/18 13:41 Lipitor - PO 10 mg HS BURAK Administration Diazepam 5 mg 04/16/18 18:40 Valium - PO 04/19/18 18:39 Q4H PRN WITHDRAWAL(CONT SUBST) Enalapril Maleate 2.5 mg 04/16/18 12:45 04/17/18 10:39 Vasotec - PO 2.5 mg DAILY BURAK Administration Folic Acid 1 mg 04/16/18 12:45 04/17/18 10:39 Folic Acid - PO 1 mg DAILY BURAK Administration Heparin Sodium (Porcine) 1,000 unit 04/16/18 19:17 Heparin - IVPUSH PRN PRN Heparin Heparin Sodium (Porcine) 5,000 unit 04/16/18 19:17 Heparin - IVPUSH PRN PRN Heparin Heparin Sodium (Porcine) 25, 500 mls @ 16 mls/hr 04/16/18 19:30 04/16/18 20: 47 000 unit/ Sodium Chloride IV 800 unit/hr TITR BURAK 16 mls/hr Administration Protocol 800 UNIT/HR Sodium Chloride 500 mls @ 500 mls/hr 04/17/18 10:53 Normal Saline - IV 04/17/18 11:52 ASDIR STA Insulin Aspart 1 vial 04/16/18 16:30 04/17/18 11:46 Novolog Vial Sliding Scale - SQ Not Given ACHS [facility] Protocol Pantoprazole Sodium 40 mg 04/16/18 12:15 04/17/18 11:11 Protonix Iv IVPUSH 40 mg DAILY BURAK Administration ASSESSMENT AND PLAN: 48 year old male with HTN, HLD, DM 2, Alcohol excess, presented with complaints of chest (retrosternal, associated SOB and palps) and diffuse abdominal pain, nausea, vomiting (non-bloody) for the past 2 days after a binging drink this past weekend. He denies any hematemesis, melena, hematochezia. No fever/chills. 1. Atypical Chest Pain - resolved. ECG - NSR, no acute changes Troponin elevated to max 1.08, trending down. CT Chest - no acute findings, old RLL granuloma Echo - RV systolic function moderately reduced with apical sparing of RV function, as seen in PE CTA Chest - No PE; Thickening of lower esophagus, likely esophagitis; RLL granuloma. Still on Heparin drip for possible ACS pending Cardiology consultation. Cardiology consult pending. 2. Non-specific Abdominal Pain, likely Gastritis sec to Alcohol drinking binge. CT Abdomen/Pelvis: No acute pathology, fatty liver, small hiatal hernia Continue Protonix - should help with both Gastritis and Esophagitis. 3. History of Alcohol Abuse Reports binge drinking for 3 days every weekend. Patient was given one dose of Librium in ED No evidence of alcohol withdrawal currently. Valium prn as per protocol. Received Banana Bag Daily MVI, Thiamine, Folate started Addiction Consult - recommend out-patient addiction/rehab services. 4. CKD 3 - Stable. 5. DM 2 with Proteinuria On Levemir and s/scale at home Continue sliding scale. On SARAH-I 6. Hyponatremia likely secondary to dehydration/alcohol excess - resolved. Repeat Na 137 after adequate hydration. 7. HTN - Continue Enalapril. 8. Mild elevation in AST Likely sec to Alcohol excess. Continue Statin for now. 9. Hypomagnesemia - repleted. DVT Px - Started on Heparin drip.
--- NOTE | 2018-04-17 16:47 | PN ---
Physical Exam: SUBJECTIVE: Patient seen and examined at bedside this morning. He endorses complete resolution of chest pain, without palpitations overnight. Patient is tolerating breakfast without abdominal pain, nausea, vomiting. He denies subjective fevers, chills, headache, change in vision, lightheadedness, dizziness. OBJECTIVE: Vital Signs Period Temp Pulse Resp BP Sys/Villavicencio Pulse Ox Last 24 Hr 97.9 F-98.5 F 70-86 18-19 100-113/56-74 98-100 GENERAL: The patient is awake, alert, and fully oriented, in no acute distress. HEAD: Normocephalic, atraumatic EYES: PERRL, extraocular movements intact, sclera anicteric, conjunctiva clear. ENT: Oropharynx clear without exudates, moist mucous membranes. NECK: Supple without lymphadenopathy LUNGS: Breath sounds equal, clear to auscultation bilaterally. No wheezes, no crackles. No accessory muscle use. HEART: Regular rate and rhythm, S1, S2 without murmur, rub or gallop. ABDOMEN: Soft, nontender, nondistended. Normoactive bowel sounds, no guarding, no rebound tenderness. EXTREMITIES: 2+ radial, dorsalis pedis pulses bilaterally, warm, well-perfused. NEUROLOGICAL: Cranial nerves II through XII grossly intact. Strength 5/5 bilateral upper and lower extremities. No gross focal deficits. PSYCH: Normal mood, normal affect upon my encounter today. SKIN: Warm, dry. Laboratory Results - last 24 hr 04/16/18 04/16/18 04/16/18 17:41 20:36 21:40 WBC RBC Hgb Hct MCV MCH MCHC RDW Plt Count MPV Absolute Neuts (auto) Neutrophils % Lymphocytes % Monocytes % Eosinophils % Basophils % Nucleated RBC % PT with INR 11.30 INR 0.96 PTT (Actin FS) 31.5 Sodium Potassium Chloride Carbon Dioxide Anion Gap BUN Creatinine Creat Clearance w eGFR POC Glucometer 152.89656 72.41223 Random Glucose Calcium Phosphorus Magnesium Total Bilirubin AST ALT Alkaline Phosphatase Total Protein Albumin Opiates Screen Methadone Screen Barbiturate Screen Phencyclidine Screen Ur Amphetamines Screen MDMA (Ecstasy) Screen Benzodiazepines Screen Cocaine Screen U Marijuana (THC) Screen 04/16/18 04/17/18 04/17/18 22:21 03:15 05:30 WBC 4.5 RBC 4.06 Hgb 11.0 L Hct 32.4 L MCV 79.8 L MCH 27.1 MCHC 34.0 RDW 15.0 Plt Count 235 D MPV 7.8 Absolute Neuts (auto) 2.3 Neutrophils % 50.6 Lymphocytes % 39.7 Monocytes % 6.3 Eosinophils % 2.9 D Basophils % 0.5 Nucleated RBC % 0 PT with INR INR PTT (Actin FS) 68.0 H Sodium Potassium Chloride Carbon Dioxide Anion Gap BUN Creatinine Creat Clearance w eGFR POC Glucometer Random Glucose Calcium Phosphorus Magnesium Total Bilirubin AST ALT Alkaline Phosphatase Total Protein Albumin Opiates Screen Negative Methadone Screen Negative Barbiturate Screen Negative Phencyclidine Screen Negative Ur Amphetamines Screen Negative MDMA (Ecstasy) Screen Negative Benzodiazepines Screen Negative Cocaine Screen Negative U Marijuana (THC) Screen Negative 04/17/18 04/17/18 04/17/18 05:30 05:30 05:53 WBC RBC Hgb Hct MCV MCH MCHC RDW Plt Count MPV Absolute Neuts (auto) Neutrophils % Lymphocytes % Monocytes % Eosinophils % Basophils % Nucleated RBC % PT with INR INR PTT (Actin FS) 60.5 H Sodium 137 Potassium 3.8 Chloride 100 Carbon Dioxide 27 Anion Gap 10 BUN 20 H Creatinine 1.3 Creat Clearance w eGFR 58.92 POC Glucometer 137 Random Glucose 133 H Calcium 8.2 L Phosphorus 2.8 Magnesium 1.6 L Total Bilirubin 0.6 AST 36 ALT 36 Alkaline Phosphatase 101 Total Protein 6.4 Albumin 2.9 L Opiates Screen Methadone Screen Barbiturate Screen Phencyclidine Screen Ur Amphetamines Screen MDMA (Ecstasy) Screen Benzodiazepines Screen Cocaine Screen U Marijuana (THC) Screen 04/17/18 11:43 WBC RBC Hgb Hct MCV MCH MCHC RDW Plt Count MPV Absolute Neuts (auto) Neutrophils % Lymphocytes % Monocytes % Eosinophils % Basophils % Nucleated RBC % PT with INR INR PTT (Actin FS) Sodium Potassium Chloride Carbon Dioxide Anion Gap BUN Creatinine Creat Clearance w eGFR POC Glucometer 178 Random Glucose Calcium Phosphorus Magnesium Total Bilirubin AST ALT Alkaline Phosphatase Total Protein Albumin Opiates Screen Methadone Screen Barbiturate Screen Phencyclidine Screen Ur Amphetamines Screen MDMA (Ecstasy) Screen Benzodiazepines Screen Cocaine Screen U Marijuana (THC) Screen Active Medications Generic Name Dose Route Start Last Admin Trade Name Freq PRN Reason Stop Dose Admin Aspirin 81 mg 04/17/18 10:00 04/17/18 10:40 Ecotrin - PO 81 mg DAILY BURAK Administration Atorvastatin Calcium 10 mg 04/16/18 13:15 04/16/18 13:41 Lipitor - PO 10 mg HS BURAK Administration Diazepam 5 mg 04/16/18 18:40 Valium - PO 04/19/18 18:39 Q4H PRN WITHDRAWAL(CONT SUBST) Enalapril Maleate 2.5 mg 04/16/18 12:45 04/17/18 10:39 Vasotec - PO 2.5 mg DAILY BURAK Administration Folic Acid 1 mg 04/16/18 12:45 04/17/18 10:39 Folic Acid - PO 1 mg DAILY BURAK Administration Heparin Sodium (Porcine) 1,000 unit 04/16/18 19:17 Heparin - IVPUSH PRN PRN Heparin Heparin Sodium (Porcine) 5,000 unit 04/16/18 19:17 Heparin - IVPUSH PRN PRN Heparin Heparin Sodium (Porcine) 25, 500 mls @ 16 mls/hr 04/16/18 19:30 04/16/18 20: 47 000 unit/ Sodium Chloride IV 800 unit/hr TITR BURAK 16 mls/hr Administration Protocol 800 UNIT/HR Sodium Chloride 500 mls @ 500 mls/hr 04/17/18 10:53 Normal Saline - IV 04/17/18 11:52 ASDIR STA Insulin Aspart 1 vial 04/16/18 16:30 04/17/18 11:46 Novolog Vial Sliding Scale - SQ Not Given ACHS B[facility]AK Protocol Pantoprazole Sodium 40 mg 04/16/18 12:15 04/17/18 11:11 Protonix Iv IVPUSH 40 mg DAILY BURAK Administration CT head: No acute intracranial hemorrhage, acute territorial infarction. ASSESSMENT/PLAN: Patient is a 48 year old male with history of hypertension, hyperlipidema, alcohol use disorder, presents with complaint of chest pain, abdominal pain with nausea and vomiting. Atypical chest pain -Resolved. -EKG shows normal sinus rhythm at 92 beats per minute. -Troponin peaked at 1.08 -Cardiac ECHO shows apical sparing of RV function, concerning for pulmonary embolism. LV systolic function normal. Grade 1 diastolic dysfunction. -Chest xray shows no acute pulmonary disease. -Chest CT shows prior right lower lobe granuloma with calcified hilar lymph nodes.Mild concentric thoracic esophagus thickening noted. No acute chest pathology. -CTA chest negative for pulmonary embolism -Cardiology recommendations (Dr. Oconnell) -Patient currently on heparin drip. Follow PTT Gastritis -Abdominal pain likely secondary to gastritis due to excessive alcohol consumption. -CT abdomen, pelvis shows no acute pathology. Diffuse fatty liver infiltration noted. -Protonix 40mg PO daily Alcohol use disorder -Patient currently not in withdrawal. CIWA 0. -Valium 5mg PO Q4H PRN for agitation -Folate 1mg PO daily -Monitor for signs of withdrawal. -Fall precautions. -Addiction consult (Dr. Escobar) appreciated. Patient considering outpatient rehab upon discharge. Hypertension -Enalapril 2.5mg PO daily Hyperlipidemia -Lipitor 10mg PO HS Diabetes mellitus, insulin dependent -Insulin sliding scale ACHS -Fingerstick blood glucose monitoring ACHS Chronic kidney disease, stage III -BUN 20/ Cr 1.3 today -Monitor CMP Transaminitis -Resolved. Likely secondary to excessive alcohol consumption. FEN -IV normal saline -Follow CMP -Diabetic diet Prophylaxis -Patient is on Heparin drip Disposition -Continue care in Telemetry floor Visit type - Emergency Visit Emergency Visit: Yes ED Registration Date: 04/16/18 Care time: The patient presented to the Emergency Department on the above date and was hospitalized for further evaluation of their emergent condition. - New Patient This patient is new to me today: Yes Date on this admission: 04/17/18 - Critical Care Critical Care patient: No - Discharge Referral Referred to [facility] Med [facility] No
[2018-04-17] MEDS: ATORVASTATIN CA 10 MG TABLET (FP) PO SCH (21:24)
[2018-04-18 06:24] VITALS: TEMP 97.9
[2018-04-18 06:26] LABS: HEMATOCRIT 32.8 % (35.4-49); HEMOGLOBIN 11.1 GM/dL (11.7-16.9); MCH 27.3 pg (25.7-33.7); MCHC 33.9 g/dl (32.0-35.9); MEAN CELL VOLUME 80.5 fl (80-96); MEAN PLT VOLUME 7.8 fl (7.5-11.1); PLATELET COUNT 208 K/MM3 (134-434); RBC 4.08 M/mm3 (4.00-5.60); RDW 15.1 % (11.9-15.9); WHITE BLOOD COUNT 4.3 K/mm3 (4.0-10.0)
[2018-04-18] MEDS: INSULIN SLIDING SCALE (NOVOLOG) 1 VIAL SQ SCH ×2 (06:41→11:23)
[2018-04-18 07:35] LABS: ALBUMIN 2.9 g/dl (3.4-5.0); ALK PHOS 96 U/L (45-117); ANION GAP 9 MMOL/L (8-16); BILIRUBIN,TOTAL 0.3 mg/dL (0.2-1); BLOOD UREA NITROGEN 17 mg/dL (7-18); CALCIUM 8.8 mg/dL (8.5-10.1); CHLORIDE 103 mmol/L (98-107); CO2 25 mmol/L (21-32); CREATININE 1.3 mg/dL (0.55-1.3); GLUCOSE,RANDOM 163 mg/dL (74-106); POTASSIUM 4.1 mmol/L (3.5-5.1); SGOT/AST 56 U/L (15-37); SGPT/ALT 46 U/L (13-61); SODIUM 137 mmol/L (136-145); TOT PROT 6.6 g/dl (6.4-8.2)
[2018-04-18] MEDS: ASPIRIN COATED 81 MG TABLET.EC PO SCH (09:33)
[2018-04-18] MEDS: PANTOPRAZOLE SODIUM 40 MG VIAL IVPUSH SCH (09:33)
[2018-04-18] MEDS: FOLIC ACID 1 MG TABLET (FP) PO SCH (09:33)
[2018-04-18] MEDS: ENALAPRIL MALEATE 2.5 MG TABLET (FP) PO SCH (09:33)
[2018-04-18 09:45] VITALS: BP 136/93; PULSE 78
--- NOTE | 2018-04-18 10:17 | PN ---
Teaching Attending Note Name of Resident: Andrews Reese ATTENDING PHYSICIAN STATEMENT I saw and evaluated the patient. I reviewed the resident's note and discussed the case with the resident. I agree with the resident's findings and plan as documented. SUBJECTIVE: No further abdominal and epigastric/substernal chest pain or nausea/ vomiting. OBJECTIVE: Afebrile, Hemodynamically Stable. Last Vital Signs Temp Pulse Resp BP Pulse Ox 97.9 F 78 18 136/93 98 04/18/18 06:00 04/18/18 09:44 04/18/18 09:44 04/18/18 09:44 04/18/18 07:18 HEENT- Atraumatic, Normocephalic Heart - S1, S2, RRR Lungs - clear to auscultation Abdomen - Soft, non-tender. Bowel Sounds normal. Extremities - no edema, no calf swelling/tenderness Neuro - AAO x 3. No tremor. Tone/Power normal all 4 extremities. Laboratory Results - last 24 hr 04/17/18 04/17/18 04/17/18 11:43 16:52 21:22 WBC RBC Hgb Hct MCV MCH MCHC RDW Plt Count MPV PTT (Actin FS) Sodium Potassium Chloride Carbon Dioxide Anion Gap BUN Creatinine Creat Clearance w eGFR POC Glucometer 178 215 218 Random Glucose Calcium Total Bilirubin AST ALT Alkaline Phosphatase Total Protein Albumin 04/18/18 04/18/18 04/18/18 05:18 05:30 05:30 WBC 4.3 RBC 4.08 Hgb 11.1 L Hct 32.8 L MCV 80.5 MCH 27.3 MCHC 33.9 RDW 15.1 Plt Count 208 MPV 7.8 PTT (Actin FS) 30.9 Sodium Potassium Chloride Carbon Dioxide Anion Gap BUN Creatinine Creat Clearance w eGFR POC Glucometer 162 Random Glucose Calcium Total Bilirubin AST ALT Alkaline Phosphatase Total Protein Albumin 04/18/18 05:30 WBC RBC Hgb Hct MCV MCH MCHC RDW Plt Count MPV PTT (Actin FS) Sodium 137 Potassium 4.1 Chloride 103 Carbon Dioxide 25 Anion Gap 9 BUN 17 Creatinine 1.3 Creat Clearance w eGFR 58.92 POC Glucometer Random Glucose 163 H Calcium 8.8 Total Bilirubin 0.3 AST 56 H ALT 46 Alkaline Phosphatase 96 Total Protein 6.6 Albumin 2.9 L Current Medications Generic Name Dose Route Start Last Admin Trade Name Freq PRN Reason Stop Dose Admin Aspirin 81 mg 04/17/18 10:00 04/18/18 09:33 Ecotrin - PO 81 mg DAILY BURAK Administration Atorvastatin Calcium 10 mg 04/16/18 13:15 04/17/18 21:24 Lipitor - PO 10 mg HS BURAK Administration Diazepam 5 mg 04/16/18 18:40 04/17/18 21:29 Valium - PO 04/19/18 18:39 5 mg Q4H PRN Administration WITHDRAWAL(CONT SUBST) Enalapril Maleate 2.5 mg 04/16/18 12:45 04/18/18 09:33 Vasotec - PO 2.5 mg DAILY BURAK Administration Folic Acid 1 mg 04/16/18 12:45 04/18/18 09:33 Folic Acid - PO 1 mg DAILY B[facility]AK Administration Heparin Sodium (Porcine) 5,000 unit 04/18/18 14:00 Heparin - SQ TID [facility] Insulin Aspart 1 vial 04/16/18 16:30 04/18/18 06:41 Novolog Vial Sliding Scale - SQ Not Given ACHS [facility] Protocol Pantoprazole Sodium 40 mg 04/16/18 12:15 04/18/18 09:33 Protonix Iv IVPUSH 40 mg DAILY BURAK Administration ASSESSMENT AND PLAN: 48 year old male with HTN, HLD, DM 2, Alcohol excess, presented with complaints of chest (retrosternal, associated SOB and palps) and diffuse abdominal pain, nausea, vomiting (non-bloody) for the 2 days after a binge drinking episode this past weekend. He denies any hematemesis, melena, hematochezia. No fever/ chills. 1. Atypical Chest Pain, likely Esophagitis/Gastritis - resolved. ECG - NSR, no acute changes Troponin elevated to max 1.08, trending down. CT Chest - no acute findings, old RLL granuloma Echo - RV systolic function moderately reduced with apical sparing of RV function, as seen in PE CTA Chest - No PE; Thickening of lower esophagus, likely esophagitis; RLL granuloma. Treated acutely with Heparin drip for possible ACS. Evaluated by Cardiology and drip discontinued. No recommendationns made for further in-patient investigation - for Cardiology follow up as out-patient. Will continue Protonix on discharge with GI out-patient follow up for CT Chest findings of esophageal wall thickening. 2. Non-specific Abdominal Pain, likely Gastritis sec to Alcohol drinking binge. CT Abdomen/Pelvis: No acute pathology, fatty liver, small hiatal hernia Continue Protonix on discharge 3. History of Alcohol Abuse Reports binge drinking for 3 days every weekend. No evidence of alcohol withdrawal on this admission. Received Banana Bag and started on daily MVI, Thiamine, Folate Addiction Medicine Consulted - recommend out-patient addiction/rehab services to which patient agrees. Patient counselled extensively and verbalized understanding of harmful effects of alcohol excess. 4. CKD 3 - Stable. 5. DM 2 with Proteinuria On Levemir and s/scale at home Continue sliding scale. Continue SARAH-I 6. Hyponatremia likely secondary to dehydration/alcohol excess - resolved. Repeat Na 137 after adequate hydration. 7. HTN - Continue Enalapril. 8. Mild elevation in AST Likely sec to Alcohol excess. Continue Statin for now. 9. Hypomagnesemia - repleted. Medically stable for discharge with GI, Cardiology, and Addiction out-patient follow up.
--- NOTE | 2018-04-18 11:11 | PN ---
Progress Note, Physician History of Present Illness: Denies further epigastric or chest discomfort, denies tremors. - Current Medication List Current Medications: Active Medications Aspirin (Ecotrin -) 81 mg PO DAILY [facility] Last Admin: 04/18/18 09:33 Dose: 81 mg Atorvastatin Calcium (Lipitor -) 10 mg PO HS [facility] Last Admin: 04/17/18 21:24 Dose: 10 mg Diazepam (Valium -) 5 mg PO Q4H PRN PRN Reason: WITHDRAWAL(CONT SUBST) Stop: 04/19/18 18:39 Last Admin: 04/17/18 21:29 Dose: 5 mg Enalapril Maleate (Vasotec -) 2.5 mg PO DAILY [facility] Last Admin: 04/18/18 09:33 Dose: 2.5 mg Folic Acid (Folic Acid -) 1 mg PO DAILY [facility] Last Admin: 04/18/18 09:33 Dose: 1 mg Heparin Sodium (Porcine) (Heparin -) 5,000 unit SQ TID [facility] Insulin Aspart (Novolog Vial Sliding Scale -) 1 vial SQ ACHS [facility]; Protocol Last Admin: 04/18/18 06:41 Dose: Not Given Pantoprazole Sodium (Protonix Iv) 40 mg IVPUSH DAILY [facility] Last Admin: 04/18/18 09:33 Dose: 40 mg - Objective Vital Signs: Vital Signs Temperature 97.9 F 04/18/18 06:00 Pulse Rate 78 04/18/18 09:44 Respiratory Rate 18 04/18/18 09:44 Blood Pressure 136/93 04/18/18 09:44 O2 Sat by Pulse Oximetry (%) 98 04/18/18 07:18 Constitutional: Yes: No Distress, Calm Neck: Yes: Supple Cardiovascular: Yes: Regular Rate and Rhythm Respiratory: Yes: Regular, CTA Bilaterally Gastrointestinal: Yes: Normal Bowel Sounds, Soft Edema: No Labs: CBC, BMP 04/18/18 05:30 04/18/18 05:30 INR, PTT INR 0.96 (0.83-1.09) 04/16/18 20:36 - ....Imaging EKG: Report Reviewed (Tele: NSR) Problem List - Problems (1) Alcohol withdrawal Code(s): F10.239 - ALCOHOL DEPENDENCE WITH WITHDRAWAL, UNSPECIFIED Qualifiers: Complication of substance-induced condition: uncomplicated Qualified Code(s ): F10.230 - Alcohol dependence with withdrawal, uncomplicated (2) Elevated troponin Code(s): R74.8 - ABNORMAL LEVELS OF OTHER SERUM ENZYMES (3) Hyponatremia Code(s): E87.1 - HYPO-OSMOLALITY AND HYPONATREMIA (4) Alcohol abuse Code(s): F10.10 - ALCOHOL ABUSE, UNCOMPLICATED (5) Alcohol dependence Code(s): F10.20 - ALCOHOL DEPENDENCE, UNCOMPLICATED (6) Diabetes Code(s): E11.9 - TYPE 2 DIABETES MELLITUS WITHOUT COMPLICATIONS Qualifiers: Diabetes mellitus type: type 2 Diabetes mellitus complication status: with kidney complications Diabetes mellitus complication detail: with nephropathy (7) Hypertension Code(s): I10 - ESSENTIAL (PRIMARY) HYPERTENSION Qualifiers: Hypertension type: essential hypertension Qualified Code(s): I10 - Essential (primary) hypertension (8) Hyperlipidemia Code(s): E78.5 - HYPERLIPIDEMIA, UNSPECIFIED Assessment/Plan 04/16/2018 Echo: Apical sparing of RV c/w Garcia sign with moderate decreased RV fxn, normal LV fxn 1. Atypical chest pain ruled out for PE, suspect esophagitis/gastritis 2. Demand ischemia with RV dysfunction 3. ETOH dependence with ETOH hepatitis 4. HTN 5. Hyperlipidemia 6. Type 2 DM 7. CKD 3 with proteinuria 8. Hyponatremia resolved P:1. Trops on downward trend, d/c heparin gtt 2. IV protonix, prn Valium 3. Continue vasotex 2.5 qd, Pravachol 40 qd, MVI, outpatient alcohol detox 4. D/c planning
--- NOTE | 2018-04-18 11:19 | DS ---
Physical Exam: SUBJECTIVE: Patient seen and examined at bedside this morning. He endorses complete resolution of chest pain, without palpitations overnight. Patient is tolerating breakfast without abdominal pain, nausea, vomiting. Patient denies acute new complaints today. OBJECTIVE: Vital Signs Period Temp Pulse Resp BP Sys/Villavicencio Pulse Ox Last 24 Hr 97.5 F-98.8 F 63-80 18-18 105-136/69-93 98-98 PHYSICAL EXAM GENERAL: The patient is awake, alert, and fully oriented, in no acute distress. HEAD: Normocephalic, atraumatic EYES: PERRL, extraocular movements intact, sclera anicteric, conjunctiva clear. ENT: Oropharynx clear without exudates, moist mucous membranes. NECK: Supple without lymphadenopathy LUNGS: Breath sounds equal, clear to auscultation bilaterally. No wheezes, no crackles. No accessory muscle use. HEART: Regular rate and rhythm, S1, S2 without murmur, rub or gallop. ABDOMEN: Soft, nontender, nondistended. Normoactive bowel sounds, no guarding, no rebound tenderness. EXTREMITIES: 2+ radial, dorsalis pedis pulses bilaterally, warm, well-perfused. NEUROLOGICAL: Cranial nerves II through XII grossly intact. Strength 5/5 bilateral upper and lower extremities. No gross focal deficits. No tremor. PSYCH: Normal mood, normal affect upon my encounter today. SKIN: Warm, dry. LABS Laboratory Results - last 24 hr 04/17/18 04/17/18 04/17/18 11:43 16:52 21:22 WBC RBC Hgb Hct MCV MCH MCHC RDW Plt Count MPV PTT (Actin FS) Sodium Potassium Chloride Carbon Dioxide Anion Gap BUN Creatinine Creat Clearance w eGFR POC Glucometer 178 215 218 Random Glucose Calcium Total Bilirubin AST ALT Alkaline Phosphatase Total Protein Albumin 04/18/18 04/18/18 04/18/18 05:18 05:30 05:30 WBC 4.3 RBC 4.08 Hgb 11.1 L Hct 32.8 L MCV 80.5 MCH 27.3 MCHC 33.9 RDW 15.1 Plt Count 208 MPV 7.8 PTT (Actin FS) 30.9 Sodium Potassium Chloride Carbon Dioxide Anion Gap BUN Creatinine Creat Clearance w eGFR POC Glucometer 162 Random Glucose Calcium Total Bilirubin AST ALT Alkaline Phosphatase Total Protein Albumin 04/18/18 05:30 WBC RBC Hgb Hct MCV MCH MCHC RDW Plt Count MPV PTT (Actin FS) Sodium 137 Potassium 4.1 Chloride 103 Carbon Dioxide 25 Anion Gap 9 BUN 17 Creatinine 1.3 Creat Clearance w eGFR 58.92 POC Glucometer Random Glucose 163 H Calcium 8.8 Total Bilirubin 0.3 AST 56 H ALT 46 Alkaline Phosphatase 96 Total Protein 6.6 Albumin 2.9 L HOSPITAL COURSE: Date of Admission:04/16/18 Date of Discharge: 04/18/18 Patient is a 48 year old male with history of hypertension, hyperlipidema, diabetes mellitus, chronic kidney disease, alcohol use disorder, presents with complaint of chest pain, abdominal pain with nausea and vomiting. EKG showed normal sinus rhythm at 92 beats per minute. Cardiac ECHO showed apical sparing of RV function, concerning for pulmonary embolism. LV systolic function normal. Grade 1 diastolic dysfunction. Chest xray showed no acute pulmonary disease. Chest CT showed prior right lower lobe granuloma with calcified hilar lymph nodes. Mild concentric thoracic esophagus thickening noted. No acute chest pathology. CTA chest negative for pulmonary embolism. Troponin peaked at 1.08. Patient was evaluated by cardiology and started on heparin drip. Upon downtrend of troponins, heprin drip was discontinued with cardiology recommendation. Abdominal pain likely secondary to gastritis due to excessive alcohol consumption. CT abdomen, pelvis showed fatty liver, with no acute pathology. Patient was not noted to be in acute alcohol withdrawal. He was evaluated by addiction physican, and provided information for outpatient alcohol program. He was supplemented with IV fluids, thiamine, folate. Counselled extensively regarding alcohol abstinence. Insulin sliding scale for control of DM, Enalapril for hypertension during hospitalization. Patient was discharged with aspirin, and protonix. CIWA of 0 upon discharge. Follow up with primary care physician, slide fastener chain assembler, and ship cleaner (for esophageal thickening). Minutes to complete discharge: 45 Discharge Summary Reason For Visit: ALCOHOL SYNDROME,HYPONATREMIA,NSTEMI,ELEVATED Current Active Problems Alcohol withdrawal (Acute) NSTEMI (non-ST elevated myocardial infarction) (Acute) Alcohol abuse (Chronic) Alcohol dependence (Chronic) Hyperlipidemia (Chronic) Condition: Stable - Instructions Diet, Activity, Other Instructions: Hospital course: You were admitted to the hospital with compliant of chest pain, abdominal pain, nausea, and vomiting. Your heart proteins were noted to be elevated. You were evaluated by the slide fastener chain assembler and cleared for discharge. You are being discharged home. Continue taking your home medications as directed. You will begin taking Aspirin 81mg daily. You will begin taking Protonix 40mg daily. Discuss the new medications with your primary care physician at your appointment. Follow-up referrals: Follow up with your primary care physician within two- three days of discharge Follow up with your slide fastener chain assembler (Dr. Oconnell) within one week of discharge. Your CAT scan showed thickening of your esophagus, and you will follow up with ship cleaner (Dr. Bear) within one week of discharge. You may need further imaging studies (such as an endoscopy) at your appointment, and you will discuss further with the ship cleaner. It is important that you abstain from drinking alcohol. We encourage you to follow up with outpatient alcohol program upon discharge. Please see the provided information. A letter was provided for you for your work saying you were in the hospital. Return to the nearest Emergency Department if you experience worsening symptoms , subjective fevers, chills, shortness of breath, chest pain, palpitations, abdominal pain, nausea, vomiting, trauma, fall, loss of consciousness. Referrals: Del Bear DO [Staff Physician] - Silver Mejia MD [Primary Care Provider] - Praneeth Oconnell MD [Staff Physician] - Disposition: HOME - Home Medications Comprehensive Discharge Medication List: Ambulatory Orders Enalapril Maleate 2.5 mg PO DAILY 04/16/18 Folic Acid 1 mg PO DAILY 04/16/18 Insulin (Levemir) [Levemir Vial] 20 unit SQ HS 04/16/18 Pravastatin Sodium [Pravachol -] 40 mg PO DAILY 04/16/18 Aspirin Coated [Ecotrin -] 81 mg PO DAILY 30 Days #30 tablet.ec 04/18/18 Miscellaneous Medical Supply [Outpatient Order] 1 each ASDIR #1 misc Pantoprazole Sodium [Protonix] 40 mg PO DAILY 30 Days #30 tablet. 04/18/18 This patient is new to me today: No Emergency Visit: Yes ED Registration Date: 04/16/18 Care time: The patient presented to the Emergency Department on the above date and was hospitalized for further evaluation of their emergent condition. Critical Care patient: No - Discharge Referral Referred to [facility] Med [facility] Yes Physician Referral: Eulalio Bear DO (GI)
[2018-04-18] MEDS ORDERED: HEPARIN NA (PORCINE) 5,000 UNITS/ML 1ML VIAL SQ SCH (14:00)
== END 2018-04-18 12:57 | disposition home or self-care (01) | DRG 241 ==
LOC: JER 05:40 → JERBED 11:04 → J4W 04-17 00:17
PROC: HZ2ZZZZ Detoxification Services for Substance Abuse Treatment (ICD-10-PCS; principal; 2018-04-16)
DX: K29.20 Alcoholic gastritis without bleeding (principal); E11.22 Type 2 diabetes mellitus with diabetic chronic kidney disease; I24.8 Other forms of acute ischemic heart disease; E11.21 Type 2 diabetes mellitus with diabetic nephropathy; E87.1 Hypo-osmolality and hyponatremia; E83.42 Hypomagnesemia; N18.3 Chronic kidney disease, stage 3 (moderate); K70.10 Alcoholic hepatitis without ascites; K76.0 Fatty (change of) liver, not elsewhere classified; I12.9 Hypertensive chronic kidney disease with stage 1 through stage 4 chronic kidney disease, or unspecified chronic kidney disease; Z79.4 Long term (current) use of insulin; E78.5 Hyperlipidemia, unspecified; F17.210 Nicotine dependence, cigarettes, uncomplicated; F10.239 Alcohol dependence with withdrawal, unspecified; R07.89 Other chest pain; B17.8 Other specified acute viral hepatitis; E86.0 Dehydration; K44.9 Diaphragmatic hernia without obstruction or gangrene; K20.9 Esophagitis, unspecified; R80.9 Proteinuria, unspecified; R74.8 Abnormal levels of other serum enzymes
CPT/HCPCS: 36415; 70450-TC; 71045-TC-FY; 71250-TC; 71275-TC; 74176-TC; 80053; 80061; 80307; 81003; 81015; 82272; 82570; 82962; 83036; 83690; 83721; 83735; 84100; 84156; 84300; 84484; 85025; 85027; 85610; 85730; 93005; 93010; 93306-TC; 99285-25; J0131; J1644; J7030

== ENCOUNTER 2018-05-24 15:15 | Inpatient (IN) | payer OTHER ==
[2018-05-24] MEDS ORDERED: FOLIC ACID INJECTION - 1 MG, THIAMINE HCL 100 MG, MULTIVIT INJECTION ADULT 10 ML in SOD... IVPB ONE (16:28)
[2018-05-24] MEDS ORDERED: ONDANSETRON 4 MG/2 ML VIAL IVPUSH ONE (16:29)
--- NOTE | 2018-05-24 16:30 | PDOC ---
History of Present Illness - General Chief Complaint: Pain, Acute Stated Complaint: ABDOMINAL PAIN Time Seen by Provider: 05/24/18 16:23 - History of Present Illness Initial Comments: 05/24/18 17:42 48m with pmh of alcohol abuse presents to the ed with n/v and abdominal cramping since this morning after ingesting the contents of an entire bottle of Absolut vodka. Patient is a self-described binge drinker and drink a lot but infrequently. Last time he drank that much was at last admission. Last admission he had same presentation with elevated troponin, diagnosed with esophagitis and demand ischemia from RV dysfunction. 05/24/18 23:27 Patient asking to be admitted to detox/rehab. Past History - Past Medical History Allergies/Adverse Reactions: Allergies Allergy/AdvReac Type Severity Reaction Status Date / Time No Known Allergies Allergy Verified 04/16/18 05:49 Home Medications: Ambulatory Orders Enalapril Maleate 2.5 mg PO DAILY 04/16/18 Folic Acid 1 mg PO DAILY 04/16/18 Insulin (Levemir) [Levemir Vial] 15 unit SQ HS 04/16/18 Pravastatin Sodium [Pravachol -] 40 mg PO DAILY 04/16/18 Aspirin Coated [Ecotrin -] 81 mg PO DAILY 30 Days #30 tablet.ec 04/18/18 Pantoprazole Sodium [Protonix] 40 mg PO DAILY 30 Days #30 tablet. 04/18/18 Anemia: No Asthma: No Cancer: No Cardiac Disorders: No CVA: No COPD: No CHF: No Dementia: No Diabetes: Yes GI Disorders: No Disorders: No HTN: Yes Hypercholesterolemia: Yes Liver Disease: (hep a?) Seizures: No Thyroid Disease: No - Surgical History Abdominal Surgery: No Appendectomy: No Cardiac Surgery: No Cholecystectomy: No Lung Surgery: No Neurologic Surgery: No Orthopedic Surgery: No - Immunization History Immunization Up to Date: Yes - Suicide/Smoking/Psychosocial Hx Smoking History: Current every day smoker Have you smoked in the past 12 months: No Number of Cigarettes Smoked Daily: 2 Cigars Per Day: 0 Information on smoking cessation initiated: No 'Breaking Loose' booklet given: 06/26/13 Hx Alcohol Use: Yes Drug/Substance Use Hx: No Substance Use Type: Alcohol Hx Substance Use Treatment: No Review of Systems - Review of Systems Able to Perform ROS?: Yes Is the patient limited Pashto proficient: No Constitutional: No: Symptoms Reported HEENTM: No: Symptoms Reported Respiratory: No: Symptoms reported Cardiac (ROS): No: Symptoms Reported ABD/GI: Yes: See HPI, Nausea, Vomiting : No: Symptoms Reported Musculoskeletal: No: Symptoms Reported Integumentary: No: Symptoms Reported Neurological: No: Symptoms reported All Other Systems: Reviewed and Negative *Physical Exam - Vital Signs Last Vital Signs Temp Pulse Resp BP Pulse Ox 99.4 F 106 H 18 132/96 99 05/24/18 15:51 05/24/18 15:51 05/24/18 15:51 05/24/18 15:51 05/24/18 16:23 - Physical Exam General Appearance: Yes: Moderate Distress HEENT: positive: EOMI, NAYELI, Normal ENT Inspection Respiratory/Chest: positive: Lungs Clear, Normal Breath Sounds. negative: Chest Tender, Respiratory Distress Cardiovascular: positive: Regular Rhythm, Regular Rate, S1, S2 Gastrointestinal/Abdominal: positive: Normal Bowel Sounds, Tender (diffuse), Soft Musculoskeletal: positive: Normal Inspection. negative: CVA Tenderness Integumentary: positive: Normal Color, Dry, Warm Neurologic: positive: Alert, Normal Mood/Affect, Normal Response, Motor Strength 5/5 Moderate Sedation - Procedure Monitoring Vital Signs: Procedure Monitoring Vital Signs Temperature 99.4 F 05/24/18 15:51 Pulse Rate 106 H 05/24/18 15:51 Respiratory Rate 18 05/24/18 15:51 Blood Pressure 132/96 05/24/18 15:51 O2 Sat by Pulse Oximetry (%) 99 05/24/18 16:23 ED Treatment Course - LABORATORY CBC & Chemistry Diagram: 05/24/18 17:06 05/24/18 17:06 Medical Decision Making - Medical Decision Making 05/24/18 23:26 Pancreatitis vs gastritis in the context of alcoholic intoxication last night. Unlikely to be withdrawing given patient's given history of episodic binge- drinking and no tongue fasciculation on exam. 1 banana bag and protonix given 05/24/18 23:27 Lipase negative, Renal function indicative of Acute renal injury. 05/24/18 23:34 Sodium 130, patient given another liter of NS. UA/UC pending., 05/25/18 00:31 Patient signed out to Dr. Stephens *DC/Admit/Observation/Transfer Diagnosis at time of Disposition: MOISES (acute kidney injury), Alcohol abuse - Referrals Referrals: Silver Mejia MD [Primary Care Provider] - - Patient Instructions - Post Discharge Activity
[2018-05-24] MEDS ORDERED: FAMOTIDINE 20 MG/50 ML IVPB 20 MG/50 ML MG IVPB ONE ×2 (16:40→17:08)
[2018-05-24] MEDS ORDERED: MAG HYDROX/AL HYDROX/SIMETH 30 ML UNIT-DOSE CUP PO ONE (16:40)
[2018-05-24] MEDS ORDERED: MAG HYDROX/AL HYDROX/SIMETH 30 ML UNIT-DOSE CUP ONE (17:07)
[2018-05-24] MEDS ORDERED: ONDANSETRON 4 MG/2 ML VIAL ONE (17:08)
[2018-05-24 17:17] LABS: BASO % 0.3 % (0-2.0); HEMATOCRIT 39.8 % (35.4-49); HEMOGLOBIN 13.8 GM/dL (11.7-16.9); LYMPH % 20.8 % (8-40); MCH 26.9 pg (25.7-33.7); MCHC 34.8 g/dl (32.0-35.9); MEAN CELL VOLUME 77.2 fl (80-96); MEAN PLT VOLUME 8.3 fl (7.5-11.1); MONO % 6.4 % (3.8-10.2); NEUT % 72.5 % (42.8-82.8); PLATELET COUNT 279 K/MM3 (134-434); RBC 5.15 M/mm3 (4.00-5.60); RDW 16.2 % (11.9-15.9); WHITE BLOOD COUNT 15.1 K/mm3 (4.0-10.0)
[2018-05-24 17:58] LABS: ALBUMIN 4.3 g/dl (3.4-5.0); ALK PHOS 143 U/L (45-117); ANION GAP 25 MMOL/L (8-16); BILIRUBIN,TOTAL 0.6 mg/dL (0.2-1); BLOOD UREA NITROGEN 31 mg/dL (7-18); CALCIUM 9.8 mg/dL (8.5-10.1); CHLORIDE 78 mmol/L (98-107); CO2 28 mmol/L (21-32); CREATININE 2.8 mg/dL (0.55-1.3); GLUCOSE,RANDOM 231 mg/dL (74-106); LIPASE 283 U/L (73-393); POTASSIUM 3.6 mmol/L (3.5-5.1); SGOT/AST 44 U/L (15-37); SGPT/ALT 59 U/L (13-61); SODIUM 130 mmol/L (136-145); TOT PROT 9.2 g/dl (6.4-8.2)
[2018-05-24] MEDS ORDERED: SODIUM CHLORIDE 1,000 ML IV ONE (22:50)
--- NOTE | 2018-05-24 23:14 | PDOC ---
Attending Attestation - Resident Resident Name: AlexJefry - ED Attending Attestation I have performed the following: I have examined & evaluated the patient, The case was reviewed & discussed with the resident, I agree w/resident's findings & plan, Exceptions are as noted - Medical Decision Making 05/24/18 22:49 pts labs reviewed noted for mild AKA with cr of 2.8 which is new when compared with his visit in march susepct prerenal azotemia - will hydrate with fluids will likely observe the patient for hydration and MOISES <Hill,Duane - Last Filed: 05/25/18 06:57> - HPI HPI: NOTE ENTERED AFTER UNSCHEDULED DOWNTIME 05/25/18 09:27 The patient is a 48 year old male with a significant past medical history of hypertension, etoh abuse and diabetes who presents to the emergency department with epigastric pain for 1 day. The patient reports that he drank a bottle of vodka last night. Pt reports immediate nausea and vomiting associated with epigastric pain after drinking. Pt reports multiple similar episodes in the past. Denies daily ETOH use. Denies coffee grounds or bloody emesis. No diarrhea /constipation. He states that he wants to go to detox. The patient denies any other symptoms or complaints. - Physicial Exam PE: 05/25/18 09:28 "GENERAL: Awake, alert, and fully oriented, in no acute distress. HEAD: No signs of trauma EYES: PERRLA, EOMI, sclera anicteric, conjunctiva clear ENT: Auricles normal inspection, hearing grossly normal, nares patent, oropharynx clear without exudates. Moist mucosa NECK: Nontender, no stepoffs, Normal ROM, supple, no lymphadenopathy, JVD, or masses LUNGS: Breath sounds equal, clear to auscultation bilaterally. No wheezes, and no crackles HEART: Regular rate and rhythm, normal S1 and S2, no murmurs, rubs or gallops ABDOMEN: + epigastric TTP, No guarding, no rebound. No masses EXTREMITIES: Normal range of motion, no edema. No clubbing or cyanosis. No cords, erythema, or tenderness NEUROLOGICAL: Cranial nerves II through XII intact. 5/5 strength and sensation in all extremities, Normal speech, normal gait, normal cerebellar function SKIN: Warm, Dry, normal turgor, no rashes or lesions noted. <Ou,Blair - Last Filed: 05/25/18 09:42>
[2018-05-24] MEDS ORDERED: PANTOPRAZOLE SODIUM 40 MG VIAL IVPUSH ONE (23:17)
[2018-05-24] MEDS ORDERED: PANTOPRAZOLE SODIUM 40 MG VIAL ONE (23:17)
[2018-05-24] MEDS ORDERED: METOCLOPRAMIDE HCL INJECTION 10 MG/2 ML VIAL IVPUSH ONE (23:41)
[2018-05-25 01:50] LABS: URINE APPEARANCE CLEAR; URINE BILIRUBIN NEGATIVE (<2.0 mg/dL); URINE COLOR LTYELLOW; URINE GLUCOSE (UA) 2+ (NEGATIVE); URINE KETONE TRACE (NEGATIVE); URINE LEUK ESTERASE NEGATIVE (NEGATIVE); URINE NITRITE NEGATIVE (NEGATIVE); URINE PROTEIN 1+ (NEGATIVE); URINE UROBILINOGEN NEGATIVE mg/dL (0.2-1.0)
[2018-05-25 01:58] LABS: EPI CELLS RARE /HPF (FEW); URINE MUCUS RARE
[2018-05-25] MEDS ORDERED: ACETAMINOPHEN 1000 MG/100 ML VIAL (NON FORMULARY) IVPB ONE (03:55)
--- NOTE | 2018-05-25 03:56 | PDOC ---
History of Present Illness - General Chief Complaint: Pain, Acute Stated Complaint: ABDOMINAL PAIN Time Seen by Provider: 05/24/18 16:23 Past History - Past Medical History Allergies/Adverse Reactions: Allergies Allergy/AdvReac Type Severity Reaction Status Date / Time No Known Allergies Allergy Verified 04/16/18 05:49 Home Medications: Ambulatory Orders Enalapril Maleate 2.5 mg PO DAILY 04/16/18 Folic Acid 1 mg PO DAILY 04/16/18 Insulin (Levemir) [Levemir Vial] 15 unit SQ HS 04/16/18 Pravastatin Sodium [Pravachol -] 40 mg PO DAILY 04/16/18 Aspirin Coated [Ecotrin -] 81 mg PO DAILY 30 Days #30 tablet.ec 04/18/18 Pantoprazole Sodium [Protonix] 40 mg PO DAILY 30 Days #30 tablet. 04/18/18 Anemia: No Asthma: No Cancer: No Cardiac Disorders: No CVA: No COPD: No CHF: No Dementia: No Diabetes: Yes GI Disorders: No Disorders: No HTN: Yes Hypercholesterolemia: Yes Liver Disease: (hep a?) Seizures: No Thyroid Disease: No - Surgical History Abdominal Surgery: No Appendectomy: No Cardiac Surgery: No Cholecystectomy: No Lung Surgery: No Neurologic Surgery: No Orthopedic Surgery: No - Immunization History Immunization Up to Date: Yes - Suicide/Smoking/Psychosocial Hx Smoking History: Current every day smoker Have you smoked in the past 12 months: No Number of Cigarettes Smoked Daily: 2 Cigars Per Day: 0 Information on smoking cessation initiated: No 'Breaking Loose' booklet given: 06/26/13 Hx Alcohol Use: Yes Drug/Substance Use Hx: No Substance Use Type: Alcohol Hx Substance Use Treatment: No Review of Systems - Review of Systems Is the patient limited Azerbaijani proficient: No *Physical Exam - Vital Signs Last Vital Signs Temp Pulse Resp BP Pulse Ox 99.4 F 106 H 18 132/96 99 05/24/18 15:51 05/24/18 15:51 05/24/18 15:51 05/24/18 15:51 05/24/18 16:23 Moderate Sedation - Procedure Monitoring Vital Signs: Procedure Monitoring Vital Signs Temperature 99.4 F 05/24/18 15:51 Pulse Rate 106 H 05/24/18 15:51 Respiratory Rate 18 05/24/18 15:51 Blood Pressure 132/96 05/24/18 15:51 O2 Sat by Pulse Oximetry (%) 99 05/24/18 16:23 ED Treatment Course - LABORATORY CBC & Chemistry Diagram: 05/24/18 17:06 05/24/18 17:06 - ADDITIONAL ORDERS Additional order review: Laboratory Results 05/24/18 05/24/18 05/24/18 23:15 17:06 17:06 Sodium 130 L Potassium 3.6 Chloride 78 L Carbon Dioxide 28 Anion Gap 25 H BUN 31 H Creatinine 2.8 H Creat Clearance w eGFR 24.31 Random Glucose 231 H Calcium 9.8 Total Bilirubin 0.6 AST 44 H ALT 59 Alkaline Phosphatase 143 H Troponin I < 0.02 Total Protein 9.2 H Albumin 4.3 Lipase 283 Urine Color Ltyellow Urine Appearance Clear Urine pH 9.0 H D Ur Specific [place] 1.014 Urine Protein 1+ H Urine Glucose (UA) 2+ H Urine Ketones Trace H Urine Blood Negative Urine Nitrite Negative Urine Bilirubin Negative Urine Urobilinogen Negative Ur Leukocyte Esterase Negative Urine WBC (Auto) <1 Urine RBC (Auto) 2 Ur Epithelial Cells Rare Urine Mucus Rare 05/24/18 17:06 RBC 5.15 MCV 77.2 L MCHC 34.8 RDW 16.2 H MPV 8.3 Neutrophils % 72.5 D Lymphocytes % 20.8 D Monocytes % 6.4 Eosinophils % 0.0 D Basophils % 0.3 - Medications Given in the ED: ED Medications Discontinued Medications Generic Name Dose Route Start Last Admin Trade Name Freq PRN Reason Stop Dose Admin Al Hydroxide/Mg Hydroxide 30 ml 05/24/18 16:40 05/24/18 17:24 Mylanta Oral Suspension - PO 05/24/18 16:41 30 ml ONCE ONE Administration Folic Acid 1 mg/ Thiamine HCl 1,000 mls @ 125 mls/hr 05/24/18 16:28 05/24/18 17:06 100 mg/ Multivitamins/Minerals IVPB 05/25/18 00:27 125 mls/hr 10 ml/ Sodium Chloride ONCE ONE Administration Famotidine/Sodium Chloride 20 mg in 50 mls @ 100 mls/hr 05/24/18 16:40 17:24 Pepcid 20 Mg Premixed Ivpb - IVPB 05/24/18 17:09 100 mls/hr ONCE ONE Administration Sodium Chloride 1,000 mls @ 1,000 mls/hr 05/24/18 22:50 05/24/18 23:00 Normal Saline - IV 05/24/18 23:49 1,000 mls/hr .Q1H ONE Administration Metoclopramide HCl 10 mg 05/24/18 23:41 05/25/18 00:00 Reglan Injection - IVPUSH 05/24/18 23:42 10 mg ONCE ONE Administration Ondansetron HCl 8 mg 05/24/18 16:29 05/24/18 17:15 Zofran Injection IVPUSH 05/24/18 16:30 8 mg ONCE ONE Administration Pantoprazole Sodium 40 mg 05/24/18 23:17 05/25/18 00:00 Protonix Iv IVPUSH 05/24/18 23:18 40 mg ONCE ONE Administration Medical Decision Making - Medical Decision Making Continuation of Care Note Patient signed out by Dr. Johnson 48yo M with HTN, HLD, DM, CKD, and ETOH use complaining of abdominal pain, nausea, vomiting. Cr=2.8 Plan to admit for MOISES Labs also notable for anion gap; Pending lactate, VBG, and acetone Patient complaining of headache. 1g ofirmev ordered 05/25/18 03:55 Lactate normal, Acetone negative Discussed case with inpatient team who accepted patient for admission under Dr. Long 05/25/18 05:44 *DC/Admit/Observation/Transfer Diagnosis at time of Disposition: MOISES (acute kidney injury), Alcohol abuse - Discharge Dispostion Condition at time of disposition: Guarded Decision to Admit order: Yes - Referrals - Patient Instructions - Post Discharge Activity
[2018-05-25 04:16] LABS: VENOUS PC02 40.5 mmHg (38-52); VENOUS PH 7.51 (7.32-7.42); VENOUS PO2 63.5 mmHg (28-48)
--- NOTE | 2018-05-25 06:04 | PN ---
Teaching Attending Note Name of Resident: Ok Rogel ATTENDING PHYSICIAN STATEMENT I saw and evaluated the patient. I reviewed the resident's note and discussed the case with the resident. I agree with the resident's findings and plan as documented. SUBJECTIVE: Seen and examined; please refer to resident note for further historical information. Briefly, this is a 48 y/o male with a PMH HTN, HLD, DM, CKD, EtOh abuse. He presents to the ER with a CC of 2x days nausea/vomitting and abdominal cramps after drinking a bottle of vodka; told us his last drink was 2 days ago. He tells me that he binged 1 bottle and threw up too many times to count (non-bloody). He tells me he never had WD seizures and doesn't drink every day. He states this has happened before. He wants to go to rehab. He was admitted in march for similar issue. Found to have MOISES and mild hyponatremia. Prolonged QTc. Baseline Cr is in the 1-range but has been fluctuant here due to multiple AKIs. He is afebrile and hemodynamically stable. Negligible CIWA in ER. Negative lipase, trop in ER. 10 sys ROS done in ER and is negative aside from HPI PMH, PSH, Family hx, Social hx reviewed Medication list reviewed; pending reconciliation (levemir 15, enalapril, asa 81 , protonix, folic acid) OBJECTIVE: VS, labs, imaging reviewed NAD, AAO, resting comfortably in bed NC AT EOMI PERRLA RRR s1/2 no mgr Mild diffuse tenderness without any guarding, +BS CN2-12 wnl, no fnds Anxious mood, appropirate behavior EKG with prolonged QTc ASSESSMENT AND PLAN: Patient presents with nausea and vomitting found to have MOISES and to be mildly hyponatremic; he is requesting detox. 1) Alcoholic Gastritits -Protonix, counseled to stop drinking 2) MOISES on CKD -Above baseline; check FeNa. Hydrated in ER; anticipating prerenal given history. Monitor BMP and UOP 3) EtOH abuse -Counseled; wishes for detox. Consult CM/SW. CIWA with librium, thiamine/ folate 4) DM -Home basal and SSI 5) Hyponatremia -Hypovolemic; checking s/u osms and urine na. Hydrated so will recheck in PM. FENA -ALANNA@60 -PRN replete -Advance as tolerated -As tolerated
--- NOTE | 2018-05-25 07:03 | HP ---
CHIEF COMPLAINT: Nausea, vomiting, abdominal pain PCP: none HISTORY OF PRESENT ILLNESS: The patient is a 48 yo m w/ PMH HTN, DM, CKD who comes into the ED c/o a 2 day hx nausea, vomiting and abdominal cramping. The patient states that after drinking a whole bottle of vodka he began to experience abdominal pain associated with nausea and vomiting. The patient states that he vomited "many times" over the past 2 days. Patient denies hematemesis. Patient denies any exacerbating or alleviating factors. He states that he only drinks on weekends, but would have a bottle of vodka over the course of that weekend. The patient's last drink was 2 days ago, just prior to the onset of symptoms. Patient has withdrawn from alcohol before, but has never had a seizure from withdrawal. ER course was notable for: (1) Cr. 2.8, BUN 31 (2) WBC 15.1 (3) Recent Travel: none PAST MEDICAL HISTORY: see HPI PAST SURGICAL HISTORY: denies Social History: Smoking: denies Alcohol: drinks on weekends approx 1 bottle per weekend. last drink 48 hrs ago. Drugs: denies Family History: non- contributory Allergies No Known Allergies Allergy (Verified 04/16/18 05:49) HOME MEDICATIONS: Home Medications Medication Instructions Recorded Enalapril Maleate 2.5 mg PO DAILY 04/16/18 Folic Acid 1 mg PO DAILY 04/16/18 Insulin (Levemir) [Levemir Vial] 15 unit SQ HS 04/16/18 Pravastatin Sodium [Pravachol -] 40 mg PO DAILY 04/16/18 Aspirin Coated [Ecotrin -] 81 mg PO DAILY 30 Days #30 04/18/18 tablet.ec Pantoprazole Sodium [Protonix] 40 mg PO DAILY 30 Days #30 04/18/18 tablet. REVIEW OF SYSTEMS CONSTITUTIONAL: Absent: fever, chills, diaphoresis, generalized weakness, malaise, loss of appetite, weight change HEENT: Absent: rhinorrhea, nasal congestion, throat pain, throat swelling, difficulty swallowing, mouth swelling, ear pain, eye pain, visual changes CARDIOVASCULAR: Absent: chest pain, syncope, palpitations, irregular heart rate, lightheadedness , peripheral edema RESPIRATORY: Absent: cough, shortness of breath, dyspnea with exertion, orthopnea, wheezing, stridor, hemoptysis GASTROINTESTINAL: Absent: abdominal distension, diarrhea, constipation, melena, hematochezia GENITOURINARY: Absent: dysuria, frequency, urgency, hesitancy, hematuria, flank pain, genital pain MUSCULOSKELETAL: Absent: myalgia, arthralgia, joint swelling, back pain, neck pain SKIN: Absent: rash, itching, pallor HEMATOLOGIC/IMMUNOLOGIC: Absent: easy bleeding, easy bruising, lymphadenopathy, frequent infections ENDOCRINE: Absent: unexplained weight gain, unexplained weight loss, heat intolerance, cold intolerance NEUROLOGIC: Absent: headache, focal weakness or paresthesias, dizziness, unsteady gait, seizure, mental status changes, bladder or bowel incontinence PSYCHIATRIC: Absent: anxiety, depression, suicidal or homicidal ideation, hallucinations. PHYSICAL EXAMINATION Vital Signs - 24 hr 05/24/18 05/24/18 05/24/18 15:51 16:23 19:30 Temperature 99.4 F Pulse Rate 106 H Respiratory 18 Rate Blood Pressure 132/96 O2 Sat by Pulse 99 99 99 Oximetry (%) GENERAL: Awake, alert, and fully oriented, in no acute distress. HEAD: Normal with no signs of trauma. EYES: Pupils equal, round and reactive to light, extraocular movements intact, sclera anicteric, conjunctiva clear. No lid lag. LUNGS: Breath sounds equal, clear to auscultation bilaterally. No wheezes, and no crackles. No accessory muscle use. HEART: Regular rate and rhythm, normal S1 and S2 without murmur, rub or gallop. ABDOMEN: Soft, nontender, not distended, normoactive bowel sounds, no guarding, no rebound, no masses. No hepatomegaly or splenomegaly. LOWER EXTREMITIES: 2+ pulses, warm, well-perfused. No calf tenderness. No peripheral edema. NEUROLOGICAL: Cranial nerves II-X intact. Normal speech. SKIN: Warm, dry, normal turgor, no rashes or lesions noted, normal capillary refill. Laboratory Results - last 24 hr 05/24/18 05/24/18 05/24/18 17:06 17:06 17:06 WBC 15.1 H RBC 5.15 Hgb 13.8 Hct 39.8 D MCV 77.2 L MCH 26.9 MCHC 34.8 RDW 16.2 H Plt Count 279 D MPV 8.3 Absolute Neuts (auto) 10.9 H Neutrophils % 72.5 D Lymphocytes % 20.8 D Monocytes % 6.4 Eosinophils % 0.0 D Basophils % 0.3 Nucleated RBC % 0 VBG pH POC VBG pCO2 POC VBG pO2 VBG HCO3 VBG O2 Sat (Jessika) VBG Base Excess Sodium 130 L Potassium 3.6 Chloride 78 L Carbon Dioxide 28 Anion Gap 25 H BUN 31 H Creatinine 2.8 H Creat Clearance w eGFR 24.31 Random Glucose 231 H Lactic Acid Calcium 9.8 Total Bilirubin 0.6 AST 44 H ALT 59 Alkaline Phosphatase 143 H Troponin I < 0.02 Total Protein 9.2 H Albumin 4.3 Lipase 283 Urine Color Urine Appearance Urine pH Ur Specific [place] Urine Protein Urine Glucose (UA) Urine Ketones Urine Blood Urine Nitrite Urine Bilirubin Urine Urobilinogen Ur Leukocyte Esterase Urine WBC (Auto) Urine RBC (Auto) Ur Epithelial Cells Urine Mucus Acetone, Qual 05/24/18 05/25/18 05/25/18 23:15 03:13 03:13 WBC RBC Hgb Hct MCV MCH MCHC RDW Plt Count MPV Absolute Neuts (auto) Neutrophils % Lymphocytes % Monocytes % Eosinophils % Basophils % Nucleated RBC % VBG pH 7.51 H POC VBG pCO2 40.5 POC VBG pO2 63.5 H D VBG HCO3 32.3 L* VBG O2 Sat (Jessika) 90.5 H* VBG Base Excess 8.7 H Sodium Potassium Chloride Carbon Dioxide Anion Gap BUN Creatinine Creat Clearance w eGFR Random Glucose Lactic Acid Calcium Total Bilirubin AST ALT Alkaline Phosphatase Troponin I Total Protein Albumin Lipase Urine Color Ltyellow Urine Appearance Clear Urine pH 9.0 H D Ur Specific [place] 1.014 Urine Protein 1+ H Urine Glucose (UA) 2+ H Urine Ketones Trace H Urine Blood Negative Urine Nitrite Negative Urine Bilirubin Negative Urine Urobilinogen Negative Ur Leukocyte Esterase Negative Urine WBC (Auto) <1 Urine RBC (Auto) 2 Ur Epithelial Cells Rare Urine Mucus Rare Acetone, Qual Negative 05/25/18 04:00 WBC RBC Hgb Hct MCV MCH MCHC RDW Plt Count MPV Absolute Neuts (auto) Neutrophils % Lymphocytes % Monocytes % Eosinophils % Basophils % Nucleated RBC % VBG pH POC VBG pCO2 POC VBG pO2 VBG HCO3 VBG O2 Sat (Jessika) VBG Base Excess Sodium Potassium Chloride Carbon Dioxide Anion Gap BUN Creatinine Creat Clearance w eGFR Random Glucose Lactic Acid 1.4 Calcium Total Bilirubin AST ALT Alkaline Phosphatase Troponin I Total Protein Albumin Lipase Urine Color Urine Appearance Urine pH Ur Specific [place] Urine Protein Urine Glucose (UA) Urine Ketones Urine Blood Urine Nitrite Urine Bilirubin Urine Urobilinogen Ur Leukocyte Esterase Urine WBC (Auto) Urine RBC (Auto) Ur Epithelial Cells Urine Mucus Acetone, Qual ASSESSMENT/PLAN: The patient is a 48 yo m w/ PMH HTN, CKD, DM who comes into the ed c/o a 2 day hx abd pn, n/v s/p drinking 1 bottle of vodka. #nausea, vomiting, abdominal pain likely 2/2 etoh gastritis -s/p elisha, reglan, famotidine in ED -QTC 490's AVOID QT PROLONGING AGENTS -GGT; ALP elevated -RUQ US #MOISES likely 2/2 volume depletion in the setting of ETOH abuse -cr 2.8 up from 1.3 in March -IVF LR @ 60 -monitor #electrolyte derangements likely 2/2 ETOH abuse -thiamine -folate -LR@ 60 -s/p 1L, banana bag in ED -Monitor sodium; likely to correct w/ IVF -rpt BMP @ 1400 -Ativan 2mg q6h PRN withdrawal ssx -caution w/ librium protocol 2/2 QTc #DM -BGM achs -iss achs #FEN -LR @ 60 -monitor lytes as above -diabetic diet #Prophy -SCDs -patient ambulatory #Dispo -admit medsurg Visit type - Emergency Visit Emergency Visit: Yes ED Registration Date: 05/25/18 Care time: The patient presented to the Emergency Department on the above date and was hospitalized for further evaluation of their emergent condition. - New Patient This patient is new to me today: Yes Date on this admission: 05/25/18 - Critical Care Critical Care patient: No
[2018-05-25 08:38] LABS: INR 1.03 (0.83-1.09); PROTHROMBIN TIME (PATIENT) 12.2 SEC (9.7-13.0)
[2018-05-25] MEDS: PANTOPRAZOLE 40 MG TABLET (FP) PO SCH ×2 (09:26→09:28)
[2018-05-25] MEDS: FOLIC ACID 1 MG TABLET (FP) PO SCH (09:27)
[2018-05-25] MEDS: INSULIN SLIDING SCALE (NOVOLOG) 1 VIAL SQ SCH ×4 (09:27→22:11)
[2018-05-25] MEDS: THIAMINE HCL 100 MG TABLET (FP) PO SCH (09:28)
[2018-05-25] MEDS: LACTATED RINGERS SOLUTION 1,000 ML/1,000 ML INFUS.BAG IV SCH ×2 (09:29→09:39)
[2018-05-25 11:06] LABS: ALBUMIN 3.3 g/dl (3.4-5.0); ALK PHOS 113 U/L (45-117); ANION GAP 11 MMOL/L (8-16); BILIRUBIN,TOTAL 0.9 mg/dL (0.2-1); BLOOD UREA NITROGEN 23 mg/dL (7-18); CALCIUM 7.7 mg/dL (8.5-10.1); CHLORIDE 90 mmol/L (98-107); CO2 29 mmol/L (21-32); CREATININE 2.2 mg/dL (0.55-1.3); GLUCOSE,RANDOM 229 mg/dL (74-106); MAGNESIUM 1.9 mg/dL (1.8-2.4); PHOSPHOROUS 3.4 mg/dL (2.5-4.9); POTASSIUM 3.3 mmol/L (3.5-5.1); SGOT/AST 43 U/L (15-37); SGPT/ALT 37 U/L (13-61); SODIUM 130 mmol/L (136-145); TOT PROT 7.5 g/dl (6.4-8.2)
[2018-05-25] MEDS ORDERED: POTASSIUM CHLORIDE TABS 20 MEQ TABLET.ER (FP) PO ONE (11:21)
[2018-05-25 11:29] VITALS: BMI 24.7
--- NOTE | 2018-05-25 11:35 | PN ---
Progress Note, Physician Chief Complaint: Mr Brock is without complaint and saying he feels better today. Denies cp, sob, n/v. - Current Medication List Current Medications: Active Medications Folic Acid (Folic Acid -) 1 mg PO DAILY [facility] Last Admin: 05/25/18 09:27 Dose: 1 mg Lactated Ringer's (Lactated Ringers Solution) 1,000 ml in 1,000 mls @ 60 mls/ hr IV ASDIR [facility] Last Admin: 05/25/18 09:39 Dose: Not Given Insulin Aspart (Novolog Vial Sliding Scale -) 0 vial SQ ACHS [facility]; Protocol Last Admin: 05/25/18 10:55 Dose: 6 units Lorazepam (Ativan Injection -) 2 mg IVPUSH Q6H PRN PRN Reason: WITHDRAWAL(CONT SUBST) Pantoprazole Sodium (Protonix -) 40 mg PO DAILY [facility] Last Admin: 05/25/18 09:28 Dose: 40 mg Potassium Chloride (K-Dur -) 40 meq PO ONCE ONE Stop: 05/25/18 11:22 Thiamine HCl (Vitamin B1 -) 100 mg PO DAILY [facility] Last Admin: 05/25/18 09:28 Dose: 100 mg - Objective Vital Signs: Vital Signs Temperature 37.0 C 05/25/18 08:00 Pulse Rate 80 05/25/18 08:00 Respiratory Rate 20 05/25/18 08:00 Blood Pressure 151/92 05/25/18 08:00 O2 Sat by Pulse Oximetry (%) 96 05/25/18 08:00 Constitutional: Yes: Well Nourished, No Distress, Calm Cardiovascular: Yes: Regular Rate and Rhythm. No: Gallop, Murmur, Rub Respiratory: Yes: Regular, CTA Bilaterally. No: Rales, Rhonchi, Wheezes Gastrointestinal: Yes: Normal Bowel Sounds, Soft. No: Distention, Tenderness Extremities: Yes: WNL Edema: No Labs: CBC, BMP 05/24/18 17:06 05/25/18 07:30 INR, PTT INR 1.03 (0.83-1.09) 05/25/18 07:30 Problem List - Problems (1) Nausea & vomiting Assessment/Plan: -resolved -secondary to alcohol gastritis -will trial diabetic diet Code(s): R11.2 - NAUSEA WITH VOMITING, UNSPECIFIED Qualifiers: Vomiting type: unspecified Vomiting Intractability: non-intractable Qualified Code(s): R11.2 - Nausea with vomiting, unspecified (2) MOISES (acute kidney injury) Assessment/Plan: -improving -continue IVF Code(s): N17.9 - ACUTE KIDNEY FAILURE, UNSPECIFIED (3) Alcohol dependence Assessment/Plan: -continue prn ativan -plan for transfer to rehab once medically stable Code(s): F10.20 - ALCOHOL DEPENDENCE, UNCOMPLICATED (4) Diabetes Assessment/Plan: -diabetic diet -FSBS and SSI Code(s): E11.9 - TYPE 2 DIABETES MELLITUS WITHOUT COMPLICATIONS Qualifiers: Diabetes mellitus type: type 2 Diabetes mellitus complication status: with kidney complications Diabetes mellitus complication detail: with nephropathy (5) Hypertension Assessment/Plan: -holding enalapril secondary to renal function -start on amlodipine for control Code(s): I10 - ESSENTIAL (PRIMARY) HYPERTENSION Qualifiers: Hypertension type: essential hypertension Qualified Code(s): I10 - Essential (primary) hypertension (6) Hypokalemia Assessment/Plan: -replace Code(s): E87.6 - HYPOKALEMIA (7) Hyponatremia Assessment/Plan: -monitor Code(s): E87.1 - HYPO-OSMOLALITY AND HYPONATREMIA
[2018-05-25] MEDS: amLODIPine BESYLATE 2.5 MG TABLET (FP) PO SCH (12:18)
[2018-05-25 16:13] LABS: ANION GAP 7 MMOL/L (8-16); BLOOD UREA NITROGEN 20 mg/dL (7-18); CALCIUM 7.6 mg/dL (8.5-10.1); CHLORIDE 94 mmol/L (98-107); CO2 31 mmol/L (21-32); GLUCOSE,RANDOM 169 mg/dL (74-106); POTASSIUM 3.8 mmol/L (3.5-5.1); SODIUM 132 mmol/L (136-145)
[2018-05-25] MEDS ORDERED: ACETAMINOPHEN 325 MG TABLET (FP) PO PRN ×2 (21:43→21:44)
[2018-05-26] MEDS: LACTATED RINGERS SOLUTION 1,000 ML/1,000 ML INFUS.BAG IV SCH (06:41)
[2018-05-26] MEDS: INSULIN SLIDING SCALE (NOVOLOG) 1 VIAL SQ SCH ×2 (06:42→11:12)
[2018-05-26 08:31] LABS: BASO % 0.6 % (0-2.0); EOS % 2.6 % (0-4.5); HEMATOCRIT 32.2 % (35.4-49); HEMOGLOBIN 11.2 GM/dL (11.7-16.9); LYMPH % 39.6 % (8-40); MCHC 34.7 g/dl (32.0-35.9); MEAN CELL VOLUME 77.7 fl (80-96); MEAN PLT VOLUME 8.1 fl (7.5-11.1); MONO % 9.1 % (3.8-10.2); NEUT % 48.1 % (42.8-82.8); PLATELET COUNT 198 K/MM3 (134-434); RBC 4.15 M/mm3 (4.00-5.60); RDW 16.1 % (11.9-15.9); WHITE BLOOD COUNT 5.8 K/mm3 (4.0-10.0)
[2018-05-26 08:55] LABS: ANION GAP 8 MMOL/L (8-16); BLOOD UREA NITROGEN 14 mg/dL (7-18); CALCIUM 8.2 mg/dL (8.5-10.1); CHLORIDE 98 mmol/L (98-107); CO2 25 mmol/L (21-32); CREATININE 1.5 mg/dL (0.55-1.3); GLUCOSE,RANDOM 197 mg/dL (74-106); MAGNESIUM 1.8 mg/dL (1.8-2.4); PHOSPHOROUS 2.7 mg/dL (2.5-4.9); POTASSIUM 3.9 mmol/L (3.5-5.1); SODIUM 132 mmol/L (136-145)
[2018-05-26] MEDS: THIAMINE HCL 100 MG TABLET (FP) PO SCH (09:01)
[2018-05-26] MEDS: PANTOPRAZOLE 40 MG TABLET (FP) PO SCH (09:01)
[2018-05-26] MEDS: amLODIPine BESYLATE 2.5 MG TABLET (FP) PO SCH (09:01)
[2018-05-26] MEDS: FOLIC ACID 1 MG TABLET (FP) PO SCH (09:01)
[2018-05-26 10:00] VITALS: BP 133/81; PULSE 83; TEMP 97.9
[2018-05-26] MEDS ORDERED: INSULIN (NOVOLOG) ASPART 100 UNITS/ML 10ML VIAL ONE (10:46)
--- NOTE | 2018-05-26 11:54 | EKG ---
Test Reason : Blood Pressure : / mmHG Vent. Rate : 082 BPM Atrial Rate : 082 BPM P-R Int : 144 ms QRS Dur : 096 ms QT Int : 420 ms P-R-T Axes : 026 -08 -18 degrees QTc Int : 490 ms NORMAL SINUS RHYTHM MINIMAL VOLTAGE CRITERIA FOR LVH, MAY BE NORMAL VARIANT NONSPECIFIC T WAVE ABNORMALITY PROLONGED QT ABNORMAL ECG WHEN COMPARED WITH ECG OF 16-APR-2018 07:12, NON-SPECIFIC CHANGE IN ST SEGMENT IN ANTERIOR LEADS T WAVE INVERSION NOW EVIDENT IN INFERIOR LEADS T WAVE INVERSION NOW EVIDENT IN ANTERIOR LEADS Confirmed by MYLES DSOUZA, ERIC ([id number]) on 05/26/2018 11:54:32 AM Referred By: Confirmed By:ERIC BUENO MD
--- NOTE | 2018-05-26 11:55 | EKG ---
Test Reason : Blood Pressure : / mmHG Vent. Rate : 082 BPM Atrial Rate : 082 BPM P-R Int : 142 ms QRS Dur : 094 ms QT Int : 426 ms P-R-T Axes : 035 -01 -17 degrees QTc Int : 497 ms NORMAL SINUS RHYTHM PROLONGED QT ABNORMAL ECG WHEN COMPARED WITH ECG OF 16-APR-2018 07:12, T WAVE INVERSION NOW EVIDENT IN INFERIOR LEADS Confirmed by MYLES DSOUZA, ERIC ([id number]) on 05/26/2018 11:54:50 AM Referred By: Confirmed By:ERIC BUENO MD
--- NOTE | 2018-05-26 13:18 | DS ---
Physical Examination Vital Signs: Vital Signs Temperature 36.6 C 05/26/18 09:00 Pulse Rate 83 05/26/18 09:00 Respiratory Rate 20 05/26/18 09:00 Blood Pressure 133/81 05/26/18 09:00 O2 Sat by Pulse Oximetry (%) 95 05/26/18 09:00 Constitutional: Yes: Well Nourished, No Distress, Calm Cardiovascular: Yes: Regular Rate and Rhythm. No: Gallop, Murmur, Rub Respiratory: Yes: Regular, CTA Bilaterally. No: Rales, Rhonchi, Wheezes Gastrointestinal: Yes: Normal Bowel Sounds, Soft. No: Distention, Tenderness Extremities: Yes: WNL Edema: No Labs: CBC, BMP 05/26/18 08:00 05/26/18 08:00 Discharge Summary Reason For Visit: ACUTE KIDNEY INJURY ALCOHOL DEPENDENCE Current Active Problems MOISES (acute kidney injury) (Acute) Alcohol abuse (Chronic) Hospital Course: Mr Brock is a very pleasant 48 year old male who came in with alcohol induced gastritis and MOISES from dehydration. He was admitted to the hospital. He did not have withdrawal while here. He was hydrated with IVF. His gastritis resolved and he is able to tolerate a diet. His renal function has improved. He was planning to enter rehab here, but stated that he prefers to go with his son. Patient is safe for discharge, will leave with son today and seek outpatient rehab for alcohol use. 32 minutes spent in preparation of this discharge Condition: Stable - Instructions Diet, Activity, Other Instructions: resume previous diet and activity Referrals: Silver Mejia MD [Primary Care Provider] - Disposition: HOME - Home Medications Comprehensive Discharge Medication List: Ambulatory Orders Enalapril Maleate 2.5 mg PO DAILY 04/16/18 Folic Acid 1 mg PO DAILY 04/16/18 Insulin (Levemir) [Levemir Vial] 15 unit SQ HS 04/16/18 Pravastatin Sodium [Pravachol -] 40 mg PO DAILY 04/16/18 Aspirin Coated [Ecotrin -] 81 mg PO DAILY 30 Days #30 tablet.ec 04/18/18 Pantoprazole Sodium [Protonix] 40 mg PO DAILY 30 Days #30 tablet. 04/18/18 Folic Acid - 1 mg PO DAILY #30 tablet 05/26/18 Thiamine HCl [Vitamin B1 -] 100 mg PO DAILY #30 tablet 05/26/18
== END 2018-05-26 14:55 | disposition home or self-care (01) | DRG 469 ==
LOC: JER 15:15 → JERBED 05-25 05:51 → J6S 05-25 07:24
PROVIDERS: ADMIT Internal Medicine; ATTEND Internal Medicine
DX: N17.9 Acute kidney failure, unspecified (principal); K29.20 Alcoholic gastritis without bleeding; E87.1 Hypo-osmolality and hyponatremia; E11.22 Type 2 diabetes mellitus with diabetic chronic kidney disease; I12.9 Hypertensive chronic kidney disease with stage 1 through stage 4 chronic kidney disease, or unspecified chronic kidney disease; N18.9 Chronic kidney disease, unspecified; E86.9 Volume depletion, unspecified; F10.20 Alcohol dependence, uncomplicated; E87.6 Hypokalemia; E86.0 Dehydration; Z79.4 Long term (current) use of insulin; Z72.0 Tobacco use
CPT/HCPCS: 36415; 71046-TC-FY; 76705-TC; 80048; 80053; 81003; 81015; 82009; 82803; 82962; 83605; 83690; 83735; 84100; 84484; 85025; 85610; 87086; 93005; 93010; 99285-25; J0131; J7030